=== PATIENT | male | born 1945 | race Caucasian/White ===

== ENCOUNTER 2016-06-02 08:07 | Emergency (ER) ==
[2016-06-02 08:12] VITALS: BP 159/88; TEMP 97.4; BMI 34.7
--- NOTE | 2016-06-02 08:18 | ED.PDOC ---
General ED Provider: Dr. JOSE RAMON RAE JR Chief Complaint: Facial Injury Stated Complaint: Skin cancer taken off last friday in [place] by Dr. Rucker[ End]facial injury last night cancer removed on friday now bleeding Pt. states left side of face where skin cancer was removed a week ago has been bleeding since yesterday.[End]97.4 98 18 94% 159/88 Time Seen by Physician: 08:16 Information Source: Patient, Family Exam Limitations: No limitations Primary Care Provider: MARY HAN Nursing and Triage Documentation Reviewed and Agree: No Trauma/Injury Complaint Exam - Facial Injury Complaint/Exam Location of Pain: Reports: Left, Cheek (6 cm lace4 closed with sutures consistent with history has a site at mid lac with dried blood no acute bleeding nontender slight erythtema slight edema no evidence infection is on keflex) Review of Systems - Review Of Systems Constitutional: Reports: No symptoms Eyes: Reports: No symptoms Ears, Nose, Mouth, Throat: Reports: No symptoms Respiratory: Reports: No symptoms Cardiac: Reports: No symptoms GI: Reports: No symptoms : Reports: No symptoms Musculoskeletal: Reports: No symptoms Skin: Reports: Lesions Neurological: Reports: No symptoms Endocrine: Reports: No symptoms Hematologic/Lymphatic: Reports: No symptoms All Other Systems: Other Past Medical History - Past Medical History Endocrine: Reports: DM 2, Dyslipidemia Cardiovascular: Reports: Hypertension Respiratory: Reports: None Hematological: Reports: None Gastrointestinal: Reports: GERD Genitourinary: Reports: None Neuro/Psych: Reports: None Musculoskeletal: Reports: None Cancer: Reports: Other - Surgical History General Surgical History: Reports: Other (Kidney removed left side about 6 years ago), Unknown - Family History Family History: Reports: Unknown - Social History Smoking Status: Current every day smoker Hx Substance Use: No Alcohol Screening: None - Immunizations Tetanus Shot up to Date: No Physical Exam - Physical Exam Appearance: Well-appearing, Obese Pain Distress: Mild Eyes: JUAN, EOMI, Conjunctiva clear Neck: Supple Skin: Warm, Dry, Normal color (note slight bruising medial to midpoint of lac) Psychiatric: Affect appropriate, Mood appropriate Critical Care Note - Critical Care Note Total Time (mins): 0 Course - Course Vital Signs: Temp Pulse Resp BP Pulse Ox 06/02/16 08:07 97.4 F L 98 H 18 159/88 H 94 L Departure - Departure Time of Disposition: 08:37 Disposition: HOME SELF-CARE Discharge Problem: Postoperative bleeding from incision Instructions: Postoperative Bleeding (ED) Condition: Good Pt referred to PMD for follow-up: Yes Additional Instructions: bandage change daily and if bleeds through return if bleeds through three times in one day ice 20 minutes three times a day call surgeon on Friday relate symptoms return if fever over 101.0, if swelling or redness increase Allergies/Adverse Reactions: Allergies No Known Allergies Allergy (Uncoded 11/14/12 19:45) Home Medications: Ambulatory Orders Diltiazem HCl [Cardizem] 60 mg PO BID 11/14/12 Insulin Glargine,Hum.rec.anlog [Lantus] 65 units SUBCUT QPM 11/14/12 Losartan/Hydrochlorothiazide [Losartan-Hctz 100-25 mg Tab] 1 tab PO DAILY Metformin HCl [Metformin HCl ER] 500 mg PO DAILY 11/14/12 Omeprazole [Prilosec] 20 mg PO QDAC 11/14/12 Simvastatin 20 mg PO DAILY 11/14/12
== END 2016-06-02 08:43 | disposition home or self-care (01) ==
LOC: ED 08:07
DX: L76.21 Postprocedural hemorrhage of skin and subcutaneous tissue following a dermatologic procedure (principal); C44.300 Unspecified malignant neoplasm of skin of unspecified part of face; F17.210 Nicotine dependence, cigarettes, uncomplicated; Z79.899 Other long term (current) drug therapy
CPT/HCPCS: 99282

== ENCOUNTER 2017-10-14 20:10 | Inpatient (IN) ==
[2017-10-14] MEDS ORDERED: DUONEB NEB STA (20:24)
--- NOTE | 2017-10-14 21:42 | ED.PDOC ---
General ED Provider: Dr. KATI VALENCIA Chief Complaint: Cough Stated Complaint: cough productive of brown sputum for few days. Mild shortness of breath. history of smoking 55 year x 1ppd. Time Seen by Physician: 20:15 Mode of Arrival: Walk-In Information Source: Patient Primary Care Provider: MARY HAN Nursing and Triage Documentation Reviewed and Agree: Yes Does patient meet sepsis criteria?: No System Inflammatory Response Syndrome: Not Applicable Sepsis Protocol: For patient's 13 years and over: Temp is 96.8 and below OR 101 and greater Pulse >90 BPM Resp >20/minute Acutely Altered Mental Status Are patient's symptoms suggestive of a new infection, such as: -Pneumonia -Skin, Soft Tissue -Endocarditis -UTI -Bone, Joint Infection -Implantable Device -Acute Abdominal Infection -Wound Infection -Meningitis -Blood Stream Catheter Infection -Unknown Respiratory Complaint Exam - Respiratory Complaint/Exam Onset/Duration: 3 days Symptoms Are: Still present Timing: Constant Initial Severity: Moderate Current Severity: Moderate Location: Chest Character: Reports: Productive cough (white sputum ) Aggravating: Reports: URI, Weather Alleviating: Reports: None Associated Signs and Symptoms: Reports: Dyspnea. Denies: Rapid breathing, Fever , Chills, Chest pain, Pleuritic chest pain, Wheezing, Hemoptysis, Dizziness, Calf pain, Calf swelling, Edema, URI, Nasal congestion, Hoarseness, Sinus discomfort, Vomiting, Sore throat, Weight loss, Decreased oral intake, Increased thirst, Increased appetite, Increased urination History of Healthcare-Acquired Pneumonia: No Related Surgical History: Reports: None Cardiac Risk Factors: Reports: None Pseudomonas Risk Factors: Reports: None Tuberculosis Risk Factors: Reports: None Status Asthmaticus Risk Factors: Reports: None Home Oxygen Use: No Recent Stress Test: No Recent Echo/LV Function: No Current Antibiotic Use: No Current Asthma Medication Use: No Respiratory Distress: None Inadequate Respiratory Effort: No Dysphagia Present: No Stridor Present: No JVD Present: No Accessory Muscle Use: No Diminished Breath Sounds: Yes (bilatearlly ) Sinus Tenderness: None Grunting Respirations: No Kussmaul Respirations: No Differential Diagnoses: Pneumonia, Bronchitis Review of Systems - Review Of Systems Constitutional: Reports: No symptoms, Fever Respiratory: Reports: Cough, Short of air GI: Reports: No symptoms : Reports: No symptoms Musculoskeletal: Reports: Neck pain (with cough on the right ) Skin: Reports: No symptoms Neurological: Reports: No symptoms Endocrine: Reports: No symptoms All Other Systems: Reviewed and Negative Past Medical History - Past Medical History Endocrine: Reports: DM 2, Dyslipidemia Cardiovascular: Reports: Hypertension Respiratory: Reports: None Hematological: Reports: None Gastrointestinal: Reports: GERD Genitourinary: Reports: None Neuro/Psych: Reports: None Musculoskeletal: Reports: None Cancer: Reports: Other - Surgical History General Surgical History: Reports: Other (Kidney removed left side about 6 years ago), Unknown - Family History Family History: Reports: Unknown - Social History Smoking Status: Former smoker Hx Substance Use: No Alcohol Screening: None Physical Exam - Physical Exam Appearance: Ill-appearing, Obese Eyes: JUAN, EOMI, Conjunctiva clear ENT: Ears normal, Nose normal, Oropharynx normal Respiratory: Breath sounds diminished Cardiovascular: RRR, Pulses normal, No rub, No murmur GI/: Soft, Nontender, No masses, Bowel sounds normal, No Organomegaly Musculoskeletal: Normal strength, ROM intact, No edema, No calf tenderness Skin: Warm, Dry, Normal color Neurological: Sensation intact, Motor intact, Reflexes intact, Cranial nerves intact, Alert, Oriented Psychiatric: Affect appropriate, Mood appropriate Interpretation - Radiology Interpretation Radiology Interpretation By: Radiologist Radiology Results: Positive (minimal bibasilar atelectasis and or pneumonia) Exam Interpreted: CXR - Marketing Intelligence Analyst Rate: Normal Rhythm: Sinus Ectopy: None - EKG Interpretation Time of EKG #1: 20:57 Rate: Normal Rhythm: Sinus Ectopy: None [place]: NL Interpretation: RBBB Critical Care Note - Critical Care Note Total Time (mins): 35 Course - Course Hematology/Chemistry: 10/15/17 04:30 10/15/17 04:30 Orders, Labs, Meds: Lab Review 10/14/17 10/14/17 10/14/17 20:30 20:35 20:35 WBC 13.19 H RBC 4.01 L Hgb 12.7 L Hct 38.8 L MCV 96.8 H MCH 31.7 H MCHC 32.7 RDW Coeff of Krissy 11.9 Plt Count 262 Immature Gran % (Auto) 0.5 Neut % (Auto) 69.7 Lymph % (Auto) 15.3 [place] % (Auto) 13.3 H Eos % (Auto) 1.0 Baso % (Auto) 0.2 Immature Gran # (Auto) 0.1 Neut # (Auto) 9.2 H Lymph # (Auto) 2.0 [place] # (Auto) 1.8 Eos # (Auto) 0.1 Baso # (Auto) 0.0 Puncture Site Rr O2 Saturation 91.0 L ABG pH 7.439 ABG pCO2 35.5 ABG pO2 59.0 L* ABG HCO3 24 ABG Total CO2 25 ABG Base Excess 0 Julian Test + FiO2 % 21.0 Sodium 135 L Potassium 4.8 Chloride 102 Carbon Dioxide 24 Anion Gap 13.8 BUN 31 H Creatinine 1.90 H Estimated GFR (MDRD) 35.00 BUN/Creatinine Ratio 16.31 Glucose 181 H Lactic Acid Calcium 9.4 Total Bilirubin 0.5 AST 11 L ALT 9 L Alkaline Phosphatase 58 Total Creatine Kinase 105 Troponin I 0.0130 B-Natriuretic Peptide Total Protein 7.6 Albumin 2.8 L Globulin 4.8 Albumin/Globulin Ratio 0.58 Procalcitonin 10/14/17 10/14/17 10/14/17 20:35 20:35 20:35 WBC RBC Hgb Hct MCV MCH MCHC RDW Coeff of Krissy Plt Count Immature Gran % (Auto) Neut % (Auto) Lymph % (Auto) [place] % (Auto) Eos % (Auto) Baso % (Auto) Immature Gran # (Auto) Neut # (Auto) Lymph # (Auto) [place] # (Auto) Eos # (Auto) Baso # (Auto) Puncture Site O2 Saturation ABG pH ABG pCO2 ABG pO2 ABG HCO3 ABG Total CO2 ABG Base Excess Julian Test FiO2 % Sodium Potassium Chloride Carbon Dioxide Anion Gap BUN Creatinine Estimated GFR (MDRD) BUN/Creatinine Ratio Glucose Lactic Acid 9.1 Calcium Total Bilirubin AST ALT Alkaline Phosphatase Total Creatine Kinase Troponin I B-Natriuretic Peptide 49 Total Protein Albumin Globulin Albumin/Globulin Ratio Procalcitonin 0.07 Orders Category Date Time Status ABG DRAW REQUEST Routine CARDIO 10/14/17 20:30 Completed EKG-(ED ONLY) Stat CARDIO 10/14/17 20:24 Completed NEBULIZER TREATMENT Stat CARDIO 10/14/17 20:25 Completed ED POURER BUGGY LADLE APPLIED .ONCE EMERGENCY 10/14/17 20:24 Active ED IV/MEDIPORT/POWERPORT .ONCE EMERGENCY 10/14/17 20:24 Active ABG Stat LAB 10/14/17 20:30 Completed B-TYPE NATRIURETIC PEPTIDE Stat LAB 10/14/17 20:35 Completed BLOOD CULTURE (ED ONLY) Stat LAB 10/14/17 20:35 Received CBC W/ AUTO DIFF Stat LAB 10/14/17 20:35 Completed COMPREHENSIVE METABOLIC PANEL Stat LAB 10/14/17 20:35 Completed CREATINE KINASE Stat LAB 10/14/17 20:35 Completed LACTIC ACID Stat LAB 10/14/17 20:35 Completed PROCALCITONIN Stat LAB 10/14/17 20:35 Completed TROPONIN I Stat LAB 10/14/17 20:35 Completed 0.9 % Sodium Chloride [Saline Flush] MEDS 10/14/17 20:24 Ordered 1 syr IVF PRN PRN Azithromycin [Zithromax] MEDS 10/14/17 21:56 Discontinued 500 mg PO ONCE STA Ceftriaxone Sodium [Rocephin] MEDS 10/14/17 22:00 Discontinued 1 gm .ROUTE .STK-MED ONE Ceftriaxone Sodium [Rocephin] 1 gm MEDS 10/14/17 21:56 Discontinued 0.9 % Sodium Chloride [Sodium Chloride] 50 ml IV ONCE Ipratropium/Albuterol Neb [Duoneb] MEDS 10/14/17 20:24 Discontinued 1 vial NEB ONCE STA CHEST, 2 VIEWS PA & LAT Stat RADS 10/14/17 20:25 Completed Medications Generic Name Dose Route Start Last Admin Trade Name Freq PRN Reason Stop Dose Admin Acetaminophen 650 mg 10/14/17 23:05 Tylenol PO Q4H PRN Fever > 102 Albuterol/Ipratropium 1 vial 10/15/17 06:00 10/15/17 04:50 Duoneb NEB 1 vial RTQID [facility] Administration Aspirin 81 mg 10/15/17 09:00 Aspirin Ec PO DAILY [facility] Azithromycin 250 mg 10/15/17 23:08 Zithromax PO 10/18/17 09:01 DAILY [facility] Carvedilol 6.25 mg 10/15/17 09:00 Coreg PO BID [facility] Enoxaparin Sodium 40 mg 10/15/17 09:00 Lovenox SUBCUT DAILY [facility] Ceftriaxone Sodium 1 gm/ 50 mls @ 75 mls/hr 10/15/17 09:00 Sodium Chloride IV DAILY [facility] Potassium Chloride/Sodium Chloride 1,000 mls @ 90 mls/hr 10/14/17 23:30 10/15 00:22 Sodium Chloride 0.9%-Kcl 20 Meq IV 90 mls/hr .Q11H7M ESTEBAN Administration Insulin Glargine 90 unit 10/15/17 17:00 Lantus SUBCUT QPM ESTEBAN Insulin Human Regular 0 - 15 unit 10/14/17 23:13 Humulin R SUBCUT PRN PRN Hyperglycemica Protocol Linagliptin 5 mg 10/15/17 09:00 Tradjenta PO DAILY ESTEBAN Methylprednisolone Sodium Succinate 40 mg 10/15/17 05:00 10/15/17 04:32 Solu-Medrol 40 Mg IVP 40 mg Q8HR ESTEBAN Administration Non-Formulary Medication 90 mg 10/15/17 09:00 Diltiazem Hcl [Diltiazem Hcl] PO BID ESTEBAN Non-Formulary Medication 50 mg 10/15/17 09:00 Losartan Potassium [Losartan Potassium] PO DAILY ESTEBAN Non-Formulary Medication 1 each 10/15/17 09:00 [place]-3 Fatty Acids/Fish Oil [Fish Oil 1,000 Mg Capsule] PO DAILY ESTEBAN Non-Formulary Medication 20 mg 10/15/17 09:00 Simvastatin [Simvastatin] PO DAILY ESTEBAN Omeprazole 20 mg 10/15/17 06:30 10/15/17 06:27 Prilosec PO 20 mg QDAC ESTEBAN Administration Ondansetron HCl 4 mg 10/14/17 23:05 Zofran 4 Mg/2 Ml IVP Q6H PRN Nausea / Vomiting Sitagliptin Phosphate 50 mg 10/15/17 09:00 Januvia PO DAILY [facility] Sodium Chloride 1 syr 10/14/17 20:24 Saline Flush IVF PRN PRN To flush IV Discontinued Medications Generic Name Dose Route Start Last Admin Trade Name Leonardoq PRN Reason Stop Dose Admin Albuterol/Ipratropium 1 vial 10/14/17 20:24 10/14/17 20:48 Duoneb NEB 10/14/17 20:25 1 vial ONCE STA Administration Azithromycin 500 mg 10/14/17 21:56 10/14/17 22:06 Zithromax PO 10/14/17 21:57 500 mg ONCE STA Administration Ceftriaxone Sodium 1 gm/ 50 mls @ 75 mls/hr 10/14/17 21:56 10/14/17 22:07 Sodium Chloride IV 10/14/17 22:35 75 mls/hr ONCE STA Administration Insulin Glargine unit 10/15/17 17:00 Lantus SUBCUT QPM ESTEBAN Methylprednisolone Sodium Succinate 125 mg 10/14/17 23:04 10/14/17 23:18 Solu-Medrol 125 Mg IVP 10/14/17 23:05 125 mg ONCE STA Administration Vital Signs: Temp Pulse Resp BP Pulse Ox 10/14/17 22:19 98.8 F 79 20 138/76 94 L 10/14/17 21:22 145/87 H 10/14/17 21:19 150/74 H 10/14/17 20:11 98.5 F 85 20 166/76 H 91 L Departure - Departure Time of Disposition: 23:15 Disposition: ADMITTED INPATIENT Discharge Problem: Bronchitis Pneumonia Qualifiers: Pneumonia type: due to unspecified organism Laterality: unspecified laterality Lung location: lower lobe of lung Qualified Code(s): J18.1 - Lobar pneumonia, unspecified organism Condition: Stable Pt referred to PMD for follow-up: Yes IPMP verified?: No Allergies/Adverse Reactions: Allergies No Known Allergies Allergy (Verified 10/14/17 20:15) Home Medications: Ambulatory Orders Insulin Glargine,Hum.rec.anlog [Lantus] 90 units SUBCUT QPM 11/14/12 Omeprazole [Prilosec] 20 mg PO QDAC 11/14/12 Simvastatin 20 mg PO DAILY 11/14/12 Aspirin [Aspir 81] 81 mg PO DAILY tab-cap 10/16/16 Carvedilol [Coreg] 6.25 mg PO BID tab-cap 10/16/16 Diltiazem HCl 90 mg PO BID tab-cap 10/16/16 Losartan Potassium 50 mg PO DAILY tab-cap 10/16/16 Sitagliptin Phosphate [Januvia] 50 mg PO DAILY 10/16/16 Linagliptin [Tradjenta] 5 mg PO DAILY 10/14/17 [place]-3 Fatty Acids/Fish Oil [Fish Oil 1,000 mg Capsule] 1 each PO DAILY Disposition Discussed With: Patient, Family
--- NOTE | 2017-10-14 21:54 | DI ---
EXAM: Chest PA and lateral HISTORY: Cough and shortness of air FINDINGS: Minimal bibasilar opacities have developed since 12/18/2014. The aorta is atherosclerotic . The lungs are hyperinflated. The heart size is normal. The bones are intact. No pneumothorax or pl eural effusions are detected. IMPRESSION: Minimal bibasilar atelectasis and/or pneumonia. Emphysema is suggested. ASCVD
[2017-10-14] MEDS ORDERED: ZITHROMAX PO STA (21:56)
[2017-10-14] MEDS ORDERED: ROCEPHIN 1 GM in SODIUM CHLORIDE 50 ML IV STA (21:56)
[2017-10-14] MEDS ORDERED: ROCEPHIN ONE (22:00)
[2017-10-14] MEDS ORDERED: SOLU-MEDROL 125 MG IVP STA (23:04)
[2017-10-14] MEDS ORDERED: TYLENOL PO PRN (23:05)
[2017-10-14] MEDS ORDERED: ZOFRAN 4 MG/2 ML IVP PRN (23:05)
[2017-10-14] MEDS ORDERED: SODIUM CHLORIDE 0.9%-KCL 20 MEQ 1,000 ML IV SCH (23:30)
[2017-10-15 00:07] VITALS: BMI 37.5
[2017-10-15] MEDS: SOLU-MEDROL 40 MG IVP SCH ×3 (04:32→20:51)
[2017-10-15] MEDS: DUONEB NEB SCH ×4 (04:50→21:30)
[2017-10-15] MEDS: PRILOSEC PO SCH (06:27)
[2017-10-15] MEDS ORDERED: NON-FORMULARY MEDICATION (Losartan Potassium [Losartan Potassium] 50 MG) PO SCH (09:00)
[2017-10-15] MEDS ORDERED: NON-FORMULARY MEDICATION (Simvastatin [Simvastatin] 20 MG) PO SCH (09:00)
[2017-10-15] MEDS ORDERED: NON-FORMULARY MEDICATION (Omega-3 Fatty Acids/Fish Oil [Fish Oil 1,000 Mg Capsule] 1 EACH) PO SCH (09:00)
[2017-10-15] MEDS ORDERED: NON-FORMULARY MEDICATION (Diltiazem Hcl [Diltiazem Hcl] 90 MG) PO SCH (09:00)
--- NOTE | 2017-10-15 09:10 | PCM.PROG ---
Attending Provider: ATTENDING PROVIDER: Dr. MARY HAN DATE OF SERVICE: 10/15/17 SUBJECTIVE: This 72 year old WHITE/ M was hospitalized 10/14/17 with pneumonia and COPD. Condition has improved and is feeling better The patient's is in the room. (The patient was not seen on 10/14/17) REVIEW OF SYSTEMS: CONSTITUTIONAL: No night sweats. No fatigue, malaise, lethargy. No fever or chills. HEENT: Eyes: No visual changes. No eye pain. No eye discharge. ENT: No runny nose. No epistaxis. No sinus pain. No odynophagia. No congestion. RESPIRATORY: No cough, no congestion. No hemoptysis. No shortness of breath. CARDIOVASCULAR: No angina symptoms. No CHF symptoms. No atypical chest pain for CAD. No palpitations. No PND. No orthopnea. GASTROINTESTINAL: No abdominal pain. No nausea or vomiting. No diarrhea or constipation. No hematemesis. No hematochezia. GENITOURINARY: No urgency. No frequency. No dysuria. No hematuria. No obstructive symptoms. No discharge. No pain. No significant abnormal bleeding. MUSCULOSKELETAL: No musculoskeletal pain; no joint swelling. NEUROLOGICAL: Awake, alert, oriented to time, place and person. No headache. No neck pain. No syncope. No seizures. No dizziness. PSYCHIATRIC: Not anxious. No depression. No suicidal thoughts. No homicidal thoughts. SKIN: No rash. No lesions. No wounds. ENDOCRINE: No unexplained weight loss. No weight gain. HEMATOLOGIC/LYMPHATIC: No anemia. No purpura. No petechiae. No prolonged or excessive bleeding. No palpable lymph nodes. PHYSICAL EXAMINATION: GENERAL: The patient is awake, alert and oriented, lying in bed in no distress. VITAL SIGNS: Temperature 98.1 F, Pulse 82, Respiratory Rate 18, BP 144/87, Pulse Ox 92% HEENT: Head normocephalic, atraumatic. Eyes: Extraocular muscles are intact. Pupils are equal, round and reactive to light and accommodation. Ears: No lesions. Nose appeared normal. Throat: No exudate or erythema. NECK: Supple. No JVD, no carotid bruit. No lymphadenopathy or thyromegaly. LUNGS: Clear to auscultation. Percussion note normal. Chest symmetrical. HEART: S1, S2, no S3. No murmurs. No cyanosis or clubbing. No ascites. Pulses: Dorsalis pedis and posterior tibial pulses +1 to +2 both sides. ABDOMEN: Soft. Non-tender. Bowel sounds active. No CVA tenderness. No mass felt. EXTREMITIES: No edema. Full range of motion of all extremities, equal. NEUROLOGIC: No focal deficit. Cranial nerves II through XII are grossly intact. No headache, no double vision or headache. SKIN: Warm and dry. Intact. Turgor-better. LYMPHATIC: No palpable lymph nodes/no lymphedema. MUSCULOSKELETAL: Normal joints with no swelling. Muscle tone is normal. LAB REVIEW: 10/15/17 04:30 10/15/17 04:30 10/15/17 04:30: Sodium 137, Potassium 4.7, Chloride 105, Carbon Dioxide 24, Anion Gap 12.7, BUN 27 H, Creatinine 1.49 H, Estimated GFR (MDRD) 47.00, BUN/ Creatinine Ratio 18.12, Glucose 115 D, Calcium 9.2 10/15/17 04:30: WBC 13.44 H, RBC 4.15 L, Hgb 12.9 L, Hct 40.0 L, MCV 96.4 H, MCH 31.1 H, MCHC 32.3, RDW Coeff of Krissy 11.8, Plt Count 256, Immature Gran % ( Auto) 0.4, Neut % (Auto) 91.5, Lymph % (Auto) 6.8 L, [place] % (Auto) 1.2, Eos % ( Auto) 0.0, Baso % (Auto) 0.1, Immature Gran # (Auto) 0.1, Neut # (Auto) 12.3 H, Lymph # (Auto) 0.9, [place] # (Auto) 0.2 L, Eos # (Auto) 0.0, Baso # (Auto) 0.0 10/14/17 20:35: Lactic Acid 9.1 10/14/17 20:35: Procalcitonin 0.07 10/14/17 20:35: B-Natriuretic Peptide 49 10/14/17 20:35: Sodium 135 L, Potassium 4.8, Chloride 102, Carbon Dioxide 24, Anion Gap 13.8, BUN 31 H, Creatinine 1.90 H, Estimated GFR (MDRD) 35.00, BUN/ Creatinine Ratio 16.31, Glucose 181 H, Calcium 9.4, Total Bilirubin 0.5, AST 11 L, ALT 9 L, Alkaline Phosphatase 58, Total Creatine Kinase 105, Troponin I 0.0130, Total Protein 7.6, Albumin 2.8 L, Globulin 4.8, Albumin/Globulin Ratio 0.58 10/14/17 20:35: WBC 13.19 H, RBC 4.01 L, Hgb 12.7 L, Hct 38.8 L, MCV 96.8 H, MCH 31.7 H, MCHC 32.7, RDW Coeff of Krissy 11.9, Plt Count 262, Immature Gran % ( Auto) 0.5, Neut % (Auto) 69.7, Lymph % (Auto) 15.3, [place] % (Auto) 13.3 H, Eos % (Auto) 1.0, Baso % (Auto) 0.2, Immature Gran # (Auto) 0.1, Neut # (Auto) 9.2 H, Lymph # (Auto) 2.0, [place] # (Auto) 1.8, Eos # (Auto) 0.1, Baso # (Auto) 0.0 10/14/17 20:30: Puncture Site Rr, O2 Saturation 91.0 L, ABG pH 7.439, ABG pCO2 35.5, ABG pO2 59.0 L*, ABG HCO3 24, ABG Total CO2 25, ABG Base Excess 0, Julian Test +, FiO2 % 21.0 ASSESSMENT: 1. PNEUMONIA, CLINICALLY BETTER 2. COPD 3. SMOKER 4. DIABETES MELLITUS 5. OBESITY 6. HYPERTENSION PLAN: 1. Continue IV antibiotics with nebs and steroids. 2. D/C IV fluids. 3. Have patient up and about. 4. Sliding scale coverage for hyperglycemia. 5, Counseling for smoking done. Plan and coordination of the patient's care discussed in the presence of [place] Mixer Operator and nurse. EDUCATION: Discussed smoking cessation with the patient, counseling for smoking done. CONDITION: Stable SCRIBED BY: BRIGETTE WATSON Auto Mechanic Supervisor scribed while in presence of service performed by Dr. MARY HAN on 10/15/17 ([id number])
[2017-10-15] MEDS: ASPIRIN EC PO SCH (09:16)
[2017-10-15] MEDS: COZAAR PO SCH (09:17)
[2017-10-15] MEDS: OMEGA-3 FISH OIL PO SCH (09:18)
[2017-10-15] MEDS: JANUVIA PO SCH (09:18)
[2017-10-15] MEDS: TRADJENTA PO SCH (09:18)
[2017-10-15] MEDS: ZOCOR PO SCH (09:18)
[2017-10-15] MEDS: CARDIZEM PO SCH ×4 (09:19→20:51)
[2017-10-15] MEDS: LOVENOX SUBCUT SCH (09:19)
[2017-10-15] MEDS: COREG PO SCH ×2 (09:19→17:59)
[2017-10-15] MEDS: HUMULIN R SUBCUT PRN ×3 (11:37→20:52)
[2017-10-15] MEDS ORDERED: LANTUS SUBCUT SCH (17:00)
[2017-10-15] MEDS: LANTUS SUBCUT SCH (18:01)
[2017-10-15] MEDS: ROCEPHIN 1 GM in SODIUM CHLORIDE 50 ML IV SCH (20:51)
[2017-10-15] MEDS ORDERED: ZITHROMAX PO SCH ×2 (21:00→23:08)
[2017-10-16] MEDS: DUONEB NEB SCH ×4 (04:48→22:05)
[2017-10-16] MEDS: PRILOSEC PO SCH (05:45)
[2017-10-16] MEDS: SOLU-MEDROL 40 MG IVP SCH (05:45)
[2017-10-16] MEDS: HUMULIN R SUBCUT PRN ×4 (05:45→20:25)
[2017-10-16] MEDS: TRADJENTA PO SCH (08:47)
[2017-10-16] MEDS: OMEGA-3 FISH OIL PO SCH (08:47)
[2017-10-16] MEDS: COREG PO SCH ×2 (08:48→18:16)
[2017-10-16] MEDS: ZOCOR PO SCH (08:48)
[2017-10-16] MEDS: JANUVIA PO SCH (08:48)
[2017-10-16] MEDS: COZAAR PO SCH (08:48)
[2017-10-16] MEDS: CARDIZEM PO SCH ×4 (08:49→20:25)
[2017-10-16] MEDS: ASPIRIN EC PO SCH (08:49)
[2017-10-16] MEDS: LOVENOX SUBCUT SCH (08:49)
--- NOTE | 2017-10-16 09:02 | PCM.PROG ---
Attending Provider: ATTENDING PROVIDER: Dr. MARY HAN This patient is seen with Denise Schneider, Nurse Practitioner. DATE OF SERVICE: 10/16/17 SUBJECTIVE: This 72 year old WHITE/ M was hospitalized 10/14/17. The patient is sitting up in bed, alert. He is sleeping well. He is eating good. Kidney function slightly more elevated. He is still wearing 02. He doesn't use oxygen at home. REVIEW OF SYSTEMS: CONSTITUTIONAL: No night sweats. No fatigue, malaise, lethargy. No fever or chills. HEENT: Eyes: No visual changes. No eye pain. No eye discharge. ENT: No runny nose. No epistaxis. No sinus pain. No odynophagia. No congestion. RESPIRATORY: Cough and congestion. No hemoptysis. Shortness of breath. CARDIOVASCULAR: No angina symptoms. No CHF symptoms. No atypical chest pain for CAD. No palpitations. No orthopnea.. GASTROINTESTINAL: No abdominal pain. No nausea or vomiting. No diarrhea or constipation. No hematemesis. No hematochezia. GENITOURINARY: No urgency. No frequency. No dysuria. No hematuria. No obstructive symptoms. No discharge. No pain. No significant abnormal bleeding. MUSCULOSKELETAL: No musculoskeletal pain; no joint swelling. NEUROLOGICAL: Awake, alert, oriented to time, place and person. No headache. No neck pain. No syncope. No seizures. No dizziness. PSYCHIATRIC: Not anxious. No depression. No suicidal thoughts. No homicidal thoughts. SKIN: No rash. No lesions. No wounds. ENDOCRINE: No unexplained weight loss. No weight gain. HEMATOLOGIC/LYMPHATIC: No anemia. No purpura. No petechiae. No prolonged or excessive bleeding. No palpable lymph nodes. PHYSICAL EXAMINATION: GENERAL: The patient is awake, alert and oriented, sitting in bed in no distress. VITAL SIGNS: Temperature 97.5 F, Pulse 92, Respiratory Rate 24, BP 133/75, Pulse Ox 96% HEENT: Head normocephalic, atraumatic. Eyes: Extraocular muscles are intact. Pupils are equal, round and reactive to light and accommodation. Ears: No lesions. Nose appeared normal. Throat: No exudate or erythema. NECK: Supple. No JVD, no carotid bruit. No lymphadenopathy or thyromegaly. LUNGS: Diminished breath sounds. Bilateral rhonchi. Percussion note normal. Chest symmetrical. HEART: S1, S2, no S3. No murmurs. No cyanosis or clubbing. No ascites. Pulses: Dorsalis pedis and posterior tibial pulses +1 to +2 both sides. ABDOMEN: Soft. Non-tender. Bowel sounds active. No CVA tenderness. No mass felt. EXTREMITIES: No edema. Full range of motion of all extremities, equal. NEUROLOGIC: No focal deficit. Cranial nerves II through XII are grossly intact. No headache, no double vision or headache. SKIN: Not dry. Intact. Turgor-normal. LYMPHATIC: No palpable lymph nodes/no lymphedema. MUSCULOSKELETAL: Normal joints with no swelling. Muscle tone is normal. LAB REVIEW: 10/16/17 05:15 10/16/17 05:15 10/16/17 05:15: Sodium 138, Potassium 4.7, Chloride 106, Carbon Dioxide 24, Anion Gap 12.7, BUN 33 H, Creatinine 1.50 H, Estimated GFR (MDRD) 46.00, BUN/ Creatinine Ratio 22.00, Glucose 264 H, Calcium 9.2 10/16/17 05:15: WBC 22.55 H D, RBC 4.08 L, Hgb 12.9 L, Hct 38.4 L, MCV 94.1 H, MCH 31.6 H, MCHC 33.6, RDW Coeff of Krissy 11.7, Plt Count 275, Immature Gran % ( Auto) 0.6, Neut % (Auto) 91.4, Lymph % (Auto) 4.4 L, [place] % (Auto) 3.5, Eos % ( Auto) 0.0, Baso % (Auto) 0.1, Immature Gran # (Auto) 0.1, Neut # (Auto) 20.6 H, Lymph # (Auto) 1.0, [place] # (Auto) 0.8, Eos # (Auto) 0.0, Baso # (Auto) 0.0 ASSESSMENT: 1. PNEUMONIA, CLINICALLY BETTER 2. COPD 3. SMOKER 4. DIABETES MELLITUS 5. OBESITY 6. HYPERTENSION 7. CHRONIC KIDNEY DISEASE PLAN: 1. Increase Solu-Medrol to 80 q.8hr Plan and coordination of the patient's care discussed in the presence of Sports Teacher and nurse. CONDITION: Stable SCRIBED BY: BRIGETTE WATSON Rehab Consultant scribed while in presence of service performed by Dr. Han/Denise Schneider APRN on 10/16/17 (2017)
[2017-10-16] MEDS: SOLU-MEDROL 125 MG IVP SCH ×2 (12:56→20:23)
[2017-10-16] MEDS ORDERED: SOLU-MEDROL 40 MG IVP SCH (13:00)
[2017-10-16] MEDS: LANTUS SUBCUT SCH (18:17)
[2017-10-16] MEDS: ROCEPHIN 1 GM in SODIUM CHLORIDE 50 ML IV SCH (20:23)
[2017-10-16] MEDS ORDERED: ZITHROMAX PO SCH (21:00)
[2017-10-17] MEDS: DUONEB NEB SCH (05:06)
[2017-10-17] MEDS: PRILOSEC PO SCH (05:45)
[2017-10-17] MEDS: SOLU-MEDROL 125 MG IVP SCH (05:45)
[2017-10-17] MEDS: HUMULIN R SUBCUT PRN ×2 (05:45→12:45)
[2017-10-17] MEDS ORDERED: PROAIR HFA IH SCH (09:00)
[2017-10-17] MEDS: CARDIZEM PO SCH ×2 (09:16→09:17)
[2017-10-17] MEDS: COZAAR PO SCH (09:16)
[2017-10-17] MEDS: TRADJENTA PO SCH (09:16)
[2017-10-17] MEDS: JANUVIA PO SCH (09:16)
[2017-10-17] MEDS: ZOCOR PO SCH (09:16)
[2017-10-17] MEDS: OMEGA-3 FISH OIL PO SCH (09:16)
[2017-10-17] MEDS: COREG PO SCH (09:17)
[2017-10-17] MEDS: ASPIRIN EC PO SCH (09:17)
[2017-10-17] MEDS: LOVENOX SUBCUT SCH (09:19)
--- NOTE | 2017-10-17 11:08 | PCM.PROG ---
Attending Provider: ATTENDING PROVIDER: Dr. MARY HAN This patient is seen with Denise Schneider, Nurse Practitioner. DATE OF SERVICE: 10/17/17 SUBJECTIVE: This 72 year old WHITE/ M was hospitalized 10/14/17. The patient is sitting in bed, ready to go home. He has been up and about eating well. REVIEW OF SYSTEMS: CONSTITUTIONAL: No night sweats. No fatigue, malaise, lethargy. No fever or chills. HEENT: Eyes: No visual changes. No eye pain. No eye discharge. ENT: No runny nose. No epistaxis. No sinus pain. No odynophagia. No congestion. RESPIRATORY: Cough. No hemoptysis. No shortness of breath. CARDIOVASCULAR: No angina symptoms. No CHF symptoms. No atypical chest pain for CAD. No palpitations. No orthopnea.. GASTROINTESTINAL: No abdominal pain. No nausea or vomiting. No diarrhea or constipation. No hematemesis. No hematochezia. GENITOURINARY: No urgency. No frequency. No dysuria. No hematuria. No obstructive symptoms. No discharge. No pain. No significant abnormal bleeding. MUSCULOSKELETAL: No musculoskeletal pain; no joint swelling. NEUROLOGICAL: Awake, alert, oriented to time, place and person. No headache. No neck pain. No syncope. No seizures. No dizziness. PSYCHIATRIC: Not anxious. No depression. No suicidal thoughts. No homicidal thoughts. SKIN: No rash. No lesions. No wounds. ENDOCRINE: No unexplained weight loss. No weight gain. HEMATOLOGIC/LYMPHATIC: No anemia. No purpura. No petechiae. No prolonged or excessive bleeding. No palpable lymph nodes. PHYSICAL EXAMINATION: GENERAL: The patient is awake, alert and oriented, sitting in bed in no distress. VITAL SIGNS: Temperature 98.0 F, Pulse 62, Respiratory Rate 15, BP 143/81, Pulse Ox 95% HEENT: Head normocephalic, atraumatic. Eyes: Extraocular muscles are intact. Pupils are equal, round and reactive to light and accommodation. Ears: No lesions. Nose appeared normal. Throat: No exudate or erythema. NECK: Supple. No JVD, no carotid bruit. No lymphadenopathy or thyromegaly. LUNGS: Diminished breath sounds. Clear to auscultation. Percussion note normal. Chest symmetrical. HEART: S1, S2, no S3. No murmurs. No cyanosis or clubbing. No ascites. Pulses: Dorsalis pedis and posterior tibial pulses +1 to +2 both sides. ABDOMEN: Soft. Non-tender. Bowel sounds active. No CVA tenderness. No mass felt. EXTREMITIES: No edema. Full range of motion of all extremities, equal. NEUROLOGIC: No focal deficit. Cranial nerves II through XII are grossly intact. No headache, no double vision or headache. SKIN: Not dry. Intact. Turgor-normal. LYMPHATIC: No palpable lymph nodes/no lymphedema. MUSCULOSKELETAL: Normal joints with no swelling. Muscle tone is normal. LAB REVIEW: 10/17/17 04:15 10/17/17 04:15 10/17/17 04:15: Sodium 137, Potassium 5.0, Chloride 106, Carbon Dioxide 23, Anion Gap 13.0, BUN 43 H, Creatinine 1.61 H, Estimated GFR (MDRD) 43.00, BUN/ Creatinine Ratio 26.70, Glucose 263 H, Calcium 9.1 10/17/17 04:15: WBC 23.56 H, RBC 4.05 L, Hgb 12.7 L, Hct 38.2 L, MCV 94.3 H, MCH 31.4 H, MCHC 33.2, RDW Coeff of Krissy 11.7, Plt Count 270, Immature Gran % ( Auto) 1.0, Neut % (Auto) 92.3, Lymph % (Auto) 4.4 L, [place] % (Auto) 2.2, Eos % ( Auto) 0.0, Baso % (Auto) 0.1, Immature Gran # (Auto) 0.2, Neut # (Auto) 21.8 H, Lymph # (Auto) 1.0, [place] # (Auto) 0.5, Eos # (Auto) 0.0, Baso # (Auto) 0.0 ASSESSMENT: 1. PNEUMONIA, CLINICALLY BETTER 2. COPD 3. SMOKER 4. DIABETES MELLITUS 5. OBESITY 6. HYPERTENSION 7. CHRONIC KIDNEY DISEASE PLAN: 1. Discharge home. 2. Prednisone 10 mg b.i.d. times five days 3. Omnicef 300 mg b.i.d. times 7 days 4. ProAir t.i.d. ESTEBAN 5. Stress echocardiogram week after next 6. Carotid scan prior to discharge Plan and coordination of the patient's care discussed in the presence of Felled Seam Operator and nurse. CONDITION: Stable SCRIBED BY: BRIGETTE WATSON Foster Care Therapist scribed while in presence of service performed by Dr. Han/Denise Schneider APRN on 10/17/17 ([id number])
[2017-10-17 11:18] VITALS: BP 99/58; TEMP 97.4
--- NOTE | 2017-10-17 11:26 | HP ---
DATE OF SERVICE: 10/15/17 REASON FOR HOSPITALIZATION/HISTORY OF PRESENT ILLNESS: 72 year old white male with a history of COPD who presented to the emergency room with productive cough with brown sputum for a few days with mild shortness of breath. PAST MEDICAL HISTORY: Diabetes Mellitus type 2, past A1c was 8.1 Hypertension LVH Dyslipidemia COPD Heavy smoker Metabolic syndrome Chronic kidney disease Lung nodule Neuropathy PAST SURGICAL HISTORY: Left nephrectomy Left shoulder surgery in 2016 REVIEW OF SYSTEMS: CONSTITUTIONAL: No night sweats. No fatigue, malaise, lethargy. No fever or chills. HEENT: Eyes: No visual changes. No eye pain. No eye discharge. ENT: No runny nose. No epistaxis. No sinus pain. No sore throat. No odynophagia. No ear pain. No congestion. RESPIRATORY: Cough, Congestion, brownish sputum. No hemoptysis. Shortness of breath. CARDIOVASCULAR: No angina symptoms. No CHF symptoms. No atypical chest pain for CAD. No palpitations. No PND. No orthopnea. GASTROINTESTINAL: No abdominal pain. No nausea or vomiting. No diarrhea or constipation. No hematemesis. No hematochezia. GENITOURINARY: No urgency. No frequency. No dysuria. No hematuria. No obstructive symptoms. No discharge. No pain. No significant abnormal bleeding. MUSCULOSKELETAL: No musculoskeletal pain. No joint swelling. No arthritis. NEUROLOGICAL: No headache. No neck pain. No syncope. No seizures. No dizziness. PSYCHIATRIC: Not anxious. No depression. No suicidal thoughts. No homicidal thoughts. SKIN: No rash. No lesions. No wounds. ENDOCRINE: No unexplained weight loss. No weight gain. HEMATOLOGIC/LYMPHATIC: No anemia. No purpura. No petechiae. No prolonged or excessive bleeding. No palpable lymph nodes. PERSONAL/FAMILY/SOCIAL HISTORY: The patient is a smoker. He currently lives with his . No alcohol or illicit drug use. Heavy smoker for the past 50 years at least a pack per day. MEDICATIONS: Simvastatin 20mg PO daily Prilosec 20mg PO QDAC Lantus 90 units SUBCUT Januvia 50mg PO daily Losartan 50mg PO daily Aspirin 81mg PO daily Coreg 6.25mg PO twice a day Diltiazem 90mg PO twice a day [place] 3 Fatty acids one PO daily Tradjenta 5mg PO daily ALLERGIES: No known allergies. PHYSICAL EXAMINATION: HEENT: Head normocephalic, atraumatic. Eyes: Extraocular muscles are intact. Pupils are equal, round and reactive to light and accommodation. Ears: No lesions. Nose appeared normal. Throat: No exudate or erythema. NECK: Supple. No JVD, no carotid bruit. No lymphadenopathy or thyromegaly. LUNGS: Diminished breath sounds with expiratory wheeze bilaterally. Clear to auscultation. Percussion note normal. Chest symmetrical. HEART: S1, S2, no S3. No murmurs. No cyanosis or clubbing. No ascites. Pulses: Dorsalis pedis and posterior tibial pulses +1 to +2 bilaterally. ABDOMEN: Soft. Nontender. Bowel sounds active. No CVA tenderness. No mass felt. EXTREMITIES: No edema. Full range of motion of all extremities, equal. NEUROLOGIC: No focal deficit. Cranial nerves II through XII are grossly intact. No headache, no double vision or headache. SKIN: Not dry. Intact. Turgor - normal. LYMPHATIC: No palpable lymph nodes/no lymphedema. MUSCULOSKELETAL: Normal joints with no swelling. Muscle tone is normal. LABS: WBC 13.44, hgb 12.9, hct 40.0, plt count 256, sodium 137, potassium 4.7, BUN 27 , creatinine 1.49, glucose 115, blood gasses on room air O2 sat 91, pH 7.439, pCO2 35.5, pO2 59, bicarb 24, total CO2 25, base excess of 0. AST 11, ALT 9. Alkaline phosphatase 58, total protein 7.6. Chest x-ray shows bibasilar atelectasis and or pneumonia. EKG shows normal sinus rhythm. ASSESSMENT: 1. Bilateral pneumonia 2. Acute COPD exacerbation 3. Shortness of breath 4. Severe COPD 5. Diabetes Mellitus type 2 6. Hypertension 7. LVH 8. Dyslipidemia 9. Metabolic syndrome 10.Chronic kidney disease,stage 2 11.History of lung nodule 12.Neuropathy symptoms PLAN: 1. Will admit 2. Routine telemetry orders 3. CBC and CMP daily 4. Continue all home medications 5. Will started IV fluids at 50cc normal saline IV 6. Place him on Rocephin 1 gram IV daily 7. Started DUO NEB treatments Q 6 hours scheduled 8. Zithromax 500mg PO daily times three days 9. Sliding scale for insulin 10.Solu-Medrol 40mg IV Q 8 hours 11.Diabetic diet 12.Oxygen at 1-2 liters PRN Will follow closely. TIME SPENT: More than 70 minutes. MTDD
--- NOTE | 2017-10-17 12:05 | CM.DICTOOL ---
ADMISSION: 10/14/17 23:04 DISCHARGE: 10/17/17 DATE OF SERVICE: 10/17/17 FINAL DIAGNOSIS PNEUMONIA EMPHYSEMA COPD DYSLIPIDEMIA HTN DM, TYPE 2 GERD OSTEOARTHRITIS, RIGHT KNEE DEGENERATIVE OA, LEFT SHOULDER ROTATOR CUFF TEAR AND REPAIR LEFT NEPHRECTOMY, 2012 SKIN CA, LEFT CHEEK, EXCISED, 05/28/17 (DR. VEGA) FORMER TOBACCO USE, 1.5 PPD X 55 YEARS NONE FOR 3 WEEKS LAST VITALS Temp Pulse Resp BP Pulse Ox 98.0 F 62 15 143/81 H 91 L 10/17/17 04:57 10/17/17 04:57 10/17/17 04:57 10/17/17 04:57 10/17/17 10:00 TAKE THESE MEDICATIONS AT HOME Albuterol Sulfate (Proair Hfa) 2 puff IH TID [facility] Last Admin: 10/17/17 09:22 Dose: 2 puff Aspirin (Aspirin Ec) 81 mg PO DAILYWM [facility] Last Admin: 10/17/17 09:17 Dose: 81 mg Carvedilol (Coreg) 6.25 mg PO BIDWM [facility] Last Admin: 10/17/17 09:17 Dose: 6.25 mg Cefdinir (Omnicef) 300 mg PO BID x7 DAYS Diltiazem HCl (Cardizem) 90 mg PO BID [facility] Last Admin: 10/17/17 09:16 Dose: 90 mg Fish Oil (Donahue-3 Fish Oil) 1,000 mg PO DAILY [facility] Last Admin: 10/17/17 09:16 Dose: 1,000 mg Insulin Glargine (Lantus) 90 unit SUBCUT QPM [facility] Last Admin: 10/16/17 18:17 Dose: 90 unit Linagliptin (Tradjenta) 5 mg PO DAILY [facility] Last Admin: 10/17/17 09:16 Dose: 5 mg Losartan Potassium (Cozaar) 50 mg PO DAILY [facility] Last Admin: 10/17/17 09:16 Dose: 50 mg Omeprazole (Prilosec) 20 mg PO QDAC [facility] Last Admin: 10/17/17 05:45 Dose: 20 mg Prednisone 10 mg PO BID with food x5 DAYS Simvastatin (Zocor) 20 mg PO DAILY [facility] Last Admin: 10/17/17 09:16 Dose: 20 mg Sitagliptin Phosphate (Januvia) 50 mg PO DAILY [facility] Last Admin: 10/17/17 09:16 Dose: 50 mg ALLERGIES No Known Allergies Allergy (Verified 10/14/17 20:15) NEW PRESCRIPTIONS: Albuterol Sulfate [Proair Hfa] 2 puff IH TID #1 puff 10/17/17 (Sent hospital supply home with patient) Cefdinir [Omnicef] 300 mg PO BID #14 capsule 10/17/17 Prednisone 10 mg PO BIDWM #10 tablet 10/17/17 SMOKING: FORMER SMOKER NONE FOR 3 WEEKS SINCE August, PATIENT HAS RECEIVED ENCOURAGEMENT TO CONTINUE COMPLETE CESSATION OF TOBACCO USE. HE IS AWARE OF THE RISKS OF SMOKING AND BENEFITS OF COMPLETE CESSATION. HE IS AGREEABLE TO CONTINUE COMPLETE CESSATION. 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 AND POSSIBLE ADVERSE EFFECTS INHALER USE FOLLOW UP OUTPATIENT TESTING: REST/STRESS ECHO LAB REVIEW: 10/17/17 04:15 10/17/17 04:15 10/17/17 04:15: Sodium 137, Potassium 5.0, Chloride 106, Carbon Dioxide 23, Anion Gap 13.0, BUN 43 H, Creatinine 1.61 H, Estimated GFR (MDRD) 43.00, BUN/ Creatinine Ratio 26.70, Glucose 263 H, Calcium 9.1 10/17/17 04:15: WBC 23.56 H, RBC 4.05 L, Hgb 12.7 L, Hct 38.2 L, MCV 94.3 H, MCH 31.4 H, MCHC 33.2, RDW Coeff of Krissy 11.7, Plt Count 270, Immature Gran % ( Auto) 1.0, Neut % (Auto) 92.3, Lymph % (Auto) 4.4 L, [place] % (Auto) 2.2, Eos % ( Auto) 0.0, Baso % (Auto) 0.1, Immature Gran # (Auto) 0.2, Neut # (Auto) 21.8 H, Lymph # (Auto) 1.0, [place] # (Auto) 0.5, Eos # (Auto) 0.0, Baso # (Auto) 0.0 PLAN: DISCHARGE HOME TODAY, 10/17/[address] HAN IN HIS OFFICE ON 10/24/17 AT 11:30 A.M. RETURN TO [facility] ON 10/24/17 AT 6:40 A.M. FOR A RESTING/ STRESS ECHO BY DR. HAN. WEAR COMFORTABLE SHOES FOR WALKING ON THE TREADMILL RESUME YOUR HOME MEDICATIONS PER LIST PROVIDED BY THE NURSING STAFF NEW PRESCRIPTIONS OMNICEF 300 MG, TAKE ONE CAPSULE BY MOUTH TWICE DAILY FOR 7 DAYS PREDNISONE 10 MG, TAKE ONE TABLET BY MOUTH TWICE DAILY WITH FOOD FOR 5 DAYS PROAIR HFA, 2 PUFFS THREE TIMES DAILY ([facility] SUPPLY FOR HOME) WEAR YOUR HOME OXYGEN CONTINUOUSLY AT 2L/NC ACTIVITY GET PLENTY OF REST AT HOME. GRADUALLY INCREASE YOUR ACTIVITY LEVEL ACCORDING TO YOUR TOLERATION DIET CONSISTENT CARBS SUMMARY THE PATIENT IS ALERT AND ORIENTED X3. HE CURRENTLY RESIDES AT HOME WITH HIS SPOUSE. HE IS INDEPENDENT WITH ADL'S AND DOES NOT REQUIRE DME, HOME HEALTH OR HOMEMAKING SERVICES AT HOME. 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 HE DESIRES TO RETURN HOME AT DISCHARGE. MR. BOLAND WAS TESTED FOR POSSIBLE OXYGEN NEEDS AT DISCHARGE. HIS OXYGEN SATURATIONS WITH EXERTION WERE 91-94% ON ROOM AIR. HE WILL NOT REQUIRE OXYGEN AT THIS TIME. THE SKIN TURGOR IS INTACT AND WITHOUT DECUBITUS ULCERS. HYDRATION AND NUTRITIONAL STATUS ARE VERY GOOD. THE PATIENT HAS SHOWN GOOD CLINICAL IMPROVEMENT WITH THE TREATMENT PROVIDED DURING THIS STAY. HE AND HIS SPOUSE ARE AWARE AND AGREEABLE FOR TODAY'S DISCHARGE PLANS. CURRENT CODE STATUS FULL CODE ABDIRASHID URBINA APRN MARY HAN M.D.
--- NOTE | 2017-10-17 13:36 | US ---
EXAM: Bilateral carotid artery Doppler History: Dizziness and weakness. Technique: Multiple sonographic images through the bilateral internal carotid arteries were obtained . Color duplex Doppler was used to interrogate vascular flow. Findings: The right ICA peak systolic velocity is within normal limits measuring 0.9 meters per second. The ri ght ICA/cca PSV ratio is normal at 1.8. The right vertebral artery was not seen. Meeks scale images d emonstrate mild to moderate plaque buildup within the right internal carotid artery. The left ICA peak systolic velocity is within normal limits measuring 1.0 meters per second. The lef t ICA/cca PSV ratio is normal at 1.0. The left vertebral artery is patent and demonstrates antegrade flow. Meeks scale images demonstrate mild to moderate plaque buildup within the left internal caroti d artery. Impression: 1. No significant hemodynamic stenosis of the bilateral internal carotid arteries. 2. Nonvisualization of the right vertebral artery.
--- NOTE | 2017-10-17 14:33 | PN ---
DATE OF SERVICE: 10/16/17 SUBJECTIVE: The patient was hospitalized with pneumonia and emphysema. The patient's condition is steadily improving. He is feeling a lot better. His kidney functions have improved. The patient was seen and examined with the nurse practitioner. PLAN: 1. Continue steroids, antibiotics, nebs. 2. Counseling for smoking done. 3. Will do PFT. CONDITION: STABLE TIME SPENT: More than 30 minutes. Plan and coordination of the patient's care discussed in the presence of nurse. DAMARIS
--- NOTE | 2017-10-17 14:41 | PN ---
DATE OF SERVICE: 10/17/17 SUBJECTIVE: The patient was seen and examined with Nurse Practitioner. The patient's condition has improved and pneumonia has improved. He is going to be discharged home. The patient is going to have echo and stress echo ten days from now and carotid scan before discharge. CONDITION: Stable. TIME SPENT: More than 30 minutes. Plan and coordination of the patient's care discussed in the presence of nurse. DAMARIS
--- NOTE | 2017-10-17 14:42 | PN ---
10/14/17: Level 5 10/15/17: Intermediate 10/16/17: Intermediate 10/17/17: D as in discharge MTDD
--- NOTE | 2017-10-20 15:01 | DS ---
DATE OF SERVICE: 10/17/17 FINAL DIAGNOSIS: 1. Pneumonia 2. Emphysema 3. COPD 4. Dyslipidemia 5. Hypertension 6. Diabetes Mellitus type 2 7. GERD 8. Osteoarthritis, right knee 9. Degenerative osteoarthritis, left shoulder 10.Rotator cuff tear and repair 11.Left nephrectomy, 2011 12.Skin cancer, left cheek, excised, 05/28/17 (DR. Rucker) 13.Former tobacco use, 1.5 pack per day x 55 years, none for three weeks. LAST VITALS: Temperature 98, pulse 62, respiratory rate 15, blood pressure 143/81 and pulse ox 91%. DISCHARGE INSTRUCTIONS: Discharge home today, 10/17/17. Return to see Dr. Melendez in his office on at 11:30am. Return to [facility] on 10/24/17 at 6:40am. For resting/stress echo by Dr. Melendez. Wear comfortable shoes for walking on the treadmill. Resume your home medications as per list provided by the nursing staff. MEDICATIONS AT DISCHARGE: ProAir two puffs IH three times a day Aspirin 81mg PO daily Coreg 6.25 Po twice a day Omnicef 300mg PO twice a day for 7 days Cardizem 90mg PO twice a day [place] 3 1000mg PO daily Lantus 90 unit SUBCUT QPM Tradjenta 5mg PO daily Cozaar 50mg PO daily Prilosec 20mg PO QDAC Prednisone 10mg PO twice a day Zocor 20mg Po daily Januvia 50mg PO daily ALLERGIES: No known allergies NEW PRESCRIPTIONS: ProAir 2 puff IH three times a day Omnicef 300mg PO twice a day Prednisone 10mg PO twice a day DIET INSTRUCTIONS: Consistent Carbohydrates ACTIVITY: Get plenty of rest at home. Gradually increase activity level according to toleration. SMOKING: Former smoker None for three weeks Since August 2017 Patient has received encouragement to continue complete cessation of tobacco use. He is aware of the risk of smoking and benefits of complete cessation. He is agreeable to continue complete cessation. 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 He had been experiencing this for a few days and was beginning to get more and more short of breath. On admission his kidney function was elevated due to dehydration and his WBC was elevated at 13,000. Chest x-ray showed bibasilar pneumonia. The patient was admitted and placed on Rocephin 1 gram IV daily, put on sliding scale coverage. He was initially put on 40mg of Solu-Medrol IV Q 8 hours and I increased that to 80mg IV Q 8 hours. He was on DUO NEBS Q 6 hour scheduled and we continued all his home medications. He was initially on normal saline at 75cc an hour. His kidney function improved after the second day and his fluids were stopped. Today we are about at his baseline a BUN of 43 and creatinine 1.61. He does have chronic kidney disease. His WBC has elevated even more however he has been on high dose steroids. Initial ABG's his oxygen 89% and we are now 95% on room air. He was wearing 2 liters of oxygen the first 48 hours however this has been discontinued. For the past 24 hours he has been up and about walking around without oxygen. He has been eating 75-100% of meals and has significantly improved. The three step oxygen test was done prior to discharge which he passed and does not require any oxygen. He will be discharged home today in stable condition with Omnicef 300mg twice a day for next 7 days as well as Prednisone 10mg twice a day for the 5 days. He does not have a nebulizer machine at home or any inhalers. He will sent home on a ProAir inhaler he is instructed to use three times a day scheduled and followup with us in the office next week. TIME SPENT: More than 60 minutes. DAMARIS
== END 2017-10-17 13:51 | disposition home or self-care (01) | DRG 191 ==
LOC: ED 20:10 → MEDSURG B 23:04
PROVIDERS: ADMIT Internal Medicine; ATTEND Internal Medicine
DX: J44.1 Chronic obstructive pulmonary disease with (acute) exacerbation (principal); I50.1 Left ventricular failure, unspecified; R06.02 Shortness of breath; E11.9 Type 2 diabetes mellitus without complications; E78.5 Hyperlipidemia, unspecified; E86.0 Dehydration; E88.81 Metabolic syndrome and other insulin resistance; I10 Essential (primary) hypertension; R06.00 Dyspnea, unspecified; G62.9 Polyneuropathy, unspecified; J43.9 Emphysema, unspecified; K21.9 Gastro-esophageal reflux disease without esophagitis; N18.2 Chronic kidney disease, stage 2 (mild); M17.12 Unilateral primary osteoarthritis, left knee; M19.012 Primary osteoarthritis, left shoulder; Z72.0 Tobacco use; Z79.4 Long term (current) use of insulin
CPT/HCPCS: 36415; 80048; 80053; 82550; 82803; 82962; 83605; 83880; 84145; 84484; 85025; 87040; 93005; 93010; 94640; 94761; 96365; 96375; 97802; 99285

== ENCOUNTER 2023-04-08 12:59 | Observation (INO) ==
--- NOTE | 2023-04-08 13:23 | ED.PDOC ---
General ED Provider: Dr. KATI VALENCIA Chief Complaint: Weakness Stated Complaint: Patient is a 77-year-old male with a history of multiple medical problems who comes to the ER with a 3-week history of legs giving out when he is walking and with his arms jerking intermittently. He is also having difficulty holding onto glass of water and has dropped his glasses. Was to follow-up with the PCP today but was told to come to the ER for evaluation press. He has a history of right ankle surgery in December last year. Time Seen by Provider: 04/08/23 13:09 Information Source: Patient and Family Primary Care Provider: DUKE STROUD Nursing and Triage Documentation Reviewed and Agree: Yes What is Opioid Naive?: *Opioid Naive implies the patient is not already taking opioids or not chronically receiving opioids on a daily basis. *PRN dosing is not "usually" associated with tolerance. *Patients are at higher risk of over-sedation and aspiration. What is Opioid Tolerant?: *Opioid Tolerance implies less than the expected response to an opioid. *Acquired tolerance is defined by the patient taking 60mg of oral morphine daily (or equianalgesic dose of another opioid) for 1 week or more. *Often associated with chronic pain. *May take more than usual dose to achieve desired pain control. Neurological Complaint Exam Weakness Complaint/Exam Last Known Well: 3 weeks Onset: Gradual Duration: 3 weeks Symptoms Are: Still present Associated Signs and Symptoms: Denies Nausea, Vomiting, Diaphoresis, Tinnitus, Chest pain, Short of air, Palpitations, Unsteady gait, GI blood loss, Visual changes, Decreased oral intake, Change in medication, Change in diet, OTC meds or Loss of balance Cardiac Risk Factors: Reports None CVA Risk Factors: Reports None Related Surgical History: Reports None Nystagmus Present: No Gag Reflex Present: No Meningeal Signs Positive: No Focal Weakness: Present None Focal Sensory Loss: Present None Gait: Normal [id number]: Normal Findings Babinski Sign: Positive Right Heel to Toe Normal: No Quality Indicators for AMI: EKG in 10min. Review of Systems Review Of Systems Constitutional: Reports No symptoms Eyes: Reports No symptoms Ears, Nose, Mouth, Throat: Reports Other (Dry mouth ) Cardiac: Reports No symptoms GI: Reports No symptoms : Reports No symptoms Musculoskeletal: Reports No symptoms Skin: Reports No symptoms Neurological: Reports No symptoms Endocrine: Reports No symptoms All Other Systems: Reviewed and Negative PFSH Medical History Right knee pain M25.561 - Pain in right knee (ICD-10) History of smoking Z87.891 - Personal history of nicotine dependence (ICD-10) Hypertension I10 - Essential (primary) hypertension (ICD-10) Hyperlipidemia E78.5 - Hyperlipidemia, unspecified (ICD-10) Atherosclerosis of coronary artery I25.10 - Atherosclerotic heart disease of [place] coronary artery without angina pectoris (ICD-10) Diabetes mellitus E11.9 - Type 2 diabetes mellitus without complications (ICD-10) Family History Mother No problems noted. FATHER Cerebrovascular accident BROTHER Diabetes Social History Smoking and tobacco status: Former smoker Alcohol intake: former Substance use type: does not use Water heater temperature set < 120 degrees: Yes Working smoke detector in home: Yes Fire extinguisher in home: Yes Carbon monoxide detector in home: Yes Surgical History H/O shoulder surgery Z98.89 - Other specified postprocedural states (ICD-10) H/O kidney removal Z90.5 - Acquired absence of kidney (ICD-10) History of musculoskeletal system surgery Z98.890 - Other specified postprocedural states (ICD-10) Kidney excision Physical Exam Physical Exam Appearance: Reports Ill-appearing and Obese Ill-appearing: Mild Pain Distress: None Eyes: Reports JUAN, EOMI and Conjunctiva clear ENT: Reports Dry mucosa Respiratory: Reports Airway patent, Breath sounds clear, Breath sounds equal and Respirations nonlabored Cardiovascular: Reports RRR GI/: Reports Soft and Nontender Musculoskeletal: Reports Normal strength, ROM intact and No edema Skin: Reports Warm, Dry and Normal color Neurological: Reports Sensation intact, Motor intact, Cranial nerves intact, Alert and Oriented; Denies Disoriented Psychiatric: Reports Anxious NIH Stroke Scale 1a. Level of Consciousness: 0=Alert and keenly responsive 1b. Level of Consciousness Questions: 0=Answers correctly to two questions 1c. Level of Consciousness Commands: 0=Performs two tasks correctly 2. Best Gaze: 0=Normal 3. Visual: 0=No visual loss 4. Facial Palsy: 0=Normal 5a. Motor Left Arm: 0=No drift,arm holds 90 degrees for 10 sec., leg 30 degrees for 5 sec. 5b. Motor Right Arm: 0=No drift,arm holds 90 degrees for 10 sec., leg 30 degrees for 5 sec. 6a. Motor Left Le=No drift,arm holds 90 degrees for 10 sec., leg 30 degrees for 5 sec. 6b. Motor Right Le=No drift,arm holds 90 degrees for 10 sec., leg 30 degrees for 5 sec. 7. Limb Ataxia: 0=Absent 8. Sensory: 0=Normal 9. Best Language: 0=No aphasia 10. Dysarthria: 0=Normal 11. Extincion and Inattention: 0=Normal Stroke Scale Total: 0 Interpretation EKG Interpretation EKG Interpretation By: ED Physician Time of EKG #1: 13:31 Rate: Normal Rhythm: Sinus Ectopy: None [place]: NL ST Segment: Normal Interpretation: RBBB EKG Comparison: No significant changes Radiology Interpretation Radiology Interpretation By: Radiologist Radiology Results: Negative Exam Interpreted: CT Scan Critical Care Note Critical Care Note Total Critical Care Time (mins): 30 Comments: Critical time spent 30 minutes managing severe hypoglycemia and acute on chronic renal failure with IV fluids. Course Course 04/08/23 13:33 04/08/23 13:33 Orders, Labs, Meds: Lab Review 04/08/23 04/08/23 04/08/23 13:33 14:00 14:22 WBC 9.35 RBC 4.40 L Hgb 13.4 L Hct 42.6 MCV 96.8 H MCH 30.5 MCHC 31.5 L RDW Coeff of Krissy 13.1 Plt Count 216 Immature Gran % (Auto) 0.6 Neut % (Auto) 64.4 Lymph % (Auto) 20.9 [place] % (Auto) 11.8 H Eos % (Auto) 2.0 Baso % (Auto) 0.3 Neut # (Auto) 6.0 Lymph # (Auto) 2.0 [place] # (Auto) 1.1 Eos # (Auto) 0.2 Baso # (Auto) 0.0 Immature Gran # (Auto) 0.1 PT 11.6 H INR 1.13 APTT 25.8 Puncture Site [place] Excess 3.5 H O2 Saturation 83.8 L ABG pH 7.39 ABG pCO2 47.0 H ABG pO2 49.0 L* ABG HCO3 28.5 H ABG Total CO2 29.9 H Julian Test Pos Hemoglobin 0.9 Oxyhemoglobin 82.3 L Carboxyhemoglobin 1.7 H Total Hemoglobin 14.0 FiO2 % 21.0 Sodium 131.0 L Potassium 4.10 Chloride 92.7 L Carbon Dioxide 27.3 Anion Gap 15.10 BUN 52.8 H Creatinine 2.66 H Estimated GFR (MDRD) 24.00 BUN/Creatinine Ratio 19.84 Glucose 577.5 H* Hemoglobin A1c > 14.00 H Calcium 8.08 L Total Bilirubin 0.54 AST 19.6 ALT 18.2 Alkaline Phosphatase 71.5 Total Protein 7.19 Albumin 3.63 Globulin 3.56 Albumin/Globulin Ratio 1.01 SARS CoV-2 RNA Rapid SALTY 04/08/23 14:35 WBC RBC Hgb Hct MCV MCH MCHC RDW Coeff of Krissy Plt Count Immature Gran % (Auto) Neut % (Auto) Lymph % (Auto) [place] % (Auto) Eos % (Auto) Baso % (Auto) Neut # (Auto) Lymph # (Auto) [place] # (Auto) Eos # (Auto) Baso # (Auto) Immature Gran # (Auto) PT INR APTT Puncture Site Base Excess O2 Saturation ABG pH ABG pCO2 ABG pO2 ABG HCO3 ABG Total CO2 Julian Test Hemoglobin Oxyhemoglobin Carboxyhemoglobin Total Hemoglobin FiO2 % Sodium Potassium Chloride Carbon Dioxide Anion Gap BUN Creatinine Estimated GFR (MDRD) BUN/Creatinine Ratio Glucose Hemoglobin A1c Calcium Total Bilirubin AST ALT Alkaline Phosphatase Total Protein Albumin Globulin Albumin/Globulin Ratio SARS CoV-2 RNA Rapid SALTY Negative Orders Category Date Time Status ADMIT OBSERVATION [PLACE PATIENT OBSERVATION] .TO ADMISSION 04/08/23 14:49 Active MEDSURG (MONITORED BED) ABG DRAW REQUEST Stat CARDIO 04/08/23 13:55 Completed EKG-(ED ONLY) Stat CARDIO 04/08/23 13:24 Completed OXYGEN Routine CARDIO 04/08/23 14:50 Ordered TELEMETRY MONITORING TELE CARE 04/08/23 14:49 Active ED ACCUCHECK ASSESSMENT .ONCE EMERGENCY 04/08/23 13:24 Active ED APPLY O2 .ONCE EMERGENCY 04/08/23 13:24 Active ED IV/MEDIPORT/POWERPORT .ONCE EMERGENCY 04/08/23 13:24 Active ABG COOX Stat LAB 04/08/23 14:22 Completed CBC W/ AUTO DIFF Stat LAB 04/08/23 13:33 Completed COMPREHENSIVE METABOLIC PANEL Stat LAB 04/08/23 13:33 Completed COVID [SARS COV-2 RNA RAPID SALTY] Stat LAB 04/08/23 14:35 Completed HEMOGLOBIN A1C Stat LAB 04/08/23 14:00 Completed PARTIAL THROMBOPLASTIN TIME Stat LAB 04/08/23 13:33 Completed PT WITH INR Stat LAB 04/08/23 13:33 Completed 0.9 % Sodium Chloride [Saline Flush] Meds 04/08/23 13:23 Active 1 syr IVF PRN PRN Sodium Chloride 0.9% [Sodium Chloride] 1,000 ml Meds 04/08/23 14:[address] HEAD W/O CONTRAST Stat RADS 04/08/23 13:24 Completed Medications Generic Name Dose Route Start Last Admin Trade Name Freq PRN Reason Stop Dose Admin Sodium Chloride 1,000 mls @ 1,000 mls/hr 04/08/23 14:00 04/08/23 14:19 Sodium Chloride IV 04/08/23 14:59 1,000 mls/hr BOLUS STA Administration Sodium Chloride 1 syr 04/08/23 13:23 0.9% Sodium Chloride 10 Ml Disp.Syrin IVF PRN PRN To flush IV Vital Signs: Temp Pulse Resp BP Pulse Ox O2 Flow Rate 04/08/23 14:31 2 04/08/23 13:05 97.9 F 90 20 150/90 H 91 L Physician Progress Note: [] Discharge Plan Discharge Patient Disposition: PLACED OBSERVATION Discharge Problem: Bilateral leg weakness Hyperglycemia due to type 2 diabetes mellitus Qualifiers: Diabetes mellitus intermediate card tender insulin use: with intermediate card tender use Qualified Code(s): E11.65 - Type 2 diabetes mellitus with hyperglycemia Acute renal failure (ARF) Qualifiers: Acute renal failure type: unspecified Qualified Code(s): N17.9 - Acute kidney failure, unspecified Did you review [place] [employer] for ALL controlled substances?: Not Applicable ED Provider: KATI VALENCIA Condition: Fair [place] Coma Scale [place] Coma Scale Eye Opening Response: Spontaneously Best Verbal Response: Oriented to Time, Place, and Person Best Motor Resposne: Obeys Commands [place] Coma Scale Score Total: 15 Response Scores: Best Response = 15 Comatose Client = 8 or Less Totally Unresponsive = 3
[2023-04-08 13:37] LABS: BASOPHILS % (AUTO) 0.3 % (0.0-3.0); EOSINOPHILS # (AUTO) 0.2 K/ul (0.0-0.7); HEMATOCRIT 42.6 % (42.0-52.0); HEMOGLOBIN 13.4 g/dl (14.0-18.0); IMMATURE GRANULOCYTE # (AUTO) 0.1 (0.0-1.0); IMMATURE GRANULOCYTE % (AUTO) 0.6 % (0.0-5.0); LYMPHOCYTES % (AUTO) 20.9 (10.0-50.0); MEAN CORPUSCULAR HEMOGLOBIN 30.5 pg (27.0-31.0); MEAN CORPUSCULAR HGB CONC 31.5 (31.8-35.4); MEAN CORPUSCULAR VOLUME 96.8 fl (80.0-94.0); MONOCYTES # (AUTO) 1.1 K/uL (0.4-2.0); MONOCYTES % (AUTO) 11.8 (0-10); NEUTROPHILS % (AUTO) 64.4 % (42.2-75.2); PLATELET COUNT 216 10^3/uL (140-440); RDW COEFFICIENT OF VARIATION 13.1 % (11.6-14.8); WHITE BLOOD COUNT 9.35 K/ul (4.2-10.2)
[2023-04-08 13:51] LABS: ALANINE AMINOTRANSFERASE 18.2 U/L (0-50); ALBUMIN 3.63 g/dL (3.5-5.0); ALKALINE PHOSPHATASE 71.5 U/L (56-119); ASPARTATE AMINO TRANSFERASE 19.6 U/L (17-59); BILIRUBIN,TOTAL 0.54 mg/dL (0.2-1.3); BLOOD UREA NITROGEN 52.8 mg/dL (9-20); CALCIUM 8.08 mg/dL (8.4-10.2); CARBON DIOXIDE 27.3 mmol/L (22-30.0); CHLORIDE 92.7 mmol/L (98-107); CREATININE 2.66 mg/dL (0.60-1.10); POTASSIUM 4.1 mmol/L (3.5-5.1); TOTAL PROTEIN 7.19 g/dL (6.3-8.2)
[2023-04-08 13:53] LABS: PARTIAL THROMBOPLASTIN TIME 25.8 SEC (23.9-40.0); PROTHROMBIN TIME 11.6 SEC (9.3-11.0)
[2023-04-08 13:59] LABS: GLUCOSE 577.5 mg/dL (74-106)
[2023-04-08] MEDS ORDERED: SODIUM CHLORIDE 1,000 ML IV STA (14:00)
--- NOTE | 2023-04-08 14:11 | CT ---
EXAMINATION: HEAD CT WITHOUT CONTRAST HISTORY: Extremity weakness. TECHNIQUE: Noncontrast CT of the brain was performed with images acquired from skull base to vertex. Contrast Dose: None CT Dose Reduction Techniques Performed: Yes COMPARISON: CT head 10/30/2018 FINDINGS: Topogram demonstrates no significant abnormality. Intraparenchymal hemorrhage: None. Parenchyma: Normal waggoner-white differentiation. No mass effect or midline shift. Extra-axial spaces and Basal cisterns: Normal. Chronic: Mild periventricular white matter hypodensities which are nonspecific, however likely due to chronic microvascular ischemia. Mild to moderate cortical volume loss. Atherosclerotic calcificati on of the bilateral carotid siphons and intracranial vertebral arteries. Ventricles: Concordant with the degree of parenchymal volume loss. Paranasal sinuses and mastoid air cells: Paranasal sinuses are clear. Mastoid air cells are clear. Orbits: Normal visualized portions. Sella/Skull Base: Normal. Other: Scalp and visualized soft tissues are normal. Calvarium is normal. IMPRESSION: No acute intracranial abnormality. If high clinical suspicion for infarct, MRI could be performed fo r further evaluation. All CT scans are performed using dose optimization techniques as appropriate to the performed exam an d include at least one of the following: Automated exposure control, adjustment of the mA and/or kV according t o size, and the use of iterative reconstruction technique.
[2023-04-08 14:25] LABS: ABG O2 HGB 82.3 % (95-100); ABG PH 7.39 (7.35-7.45); BEecf 3.5 (-2.0-3.0); COHb 1.7 (0.5-1.5); HCO3 28.5 (21-28); MetHb 0.9 (0-1.5); TCO2 29.9 (19-24); sO2 83.8 % (94-98)
--- NOTE | 2023-04-08 14:51 | PCM ---
Date of Service Date Seen by Provider: 04/08/23 Time Seen by Provider: 15:00 Admit Day/Time Admission Date: 04/08/23 Admission Time: 14:49 Reason for Admission Chief Complaint: HYPERGLYCEMIA; ACUTE RENAL FAILURE Hospital Provider Hospital Provider: Sandrita Godfrey PA-C, [facility] Primary Care Physician Primary Care Physician: DUKE STROUD History of Present Illness History of Present Illness: Patient is a 77 year old male with pmhx of DMT2, renal failure, hyperlipdemia, COPD with chronic respiratory failure, polycystic kidney disease, BPH, GERD who presented to the ER with frequent falls, feeling jittery, having difficulty holding onto things with his hands, and his legs "giving out on him." No unilateral weakness. This has been ongoing for past few weeks. Although he is a poor historian and timeline seems questionable when talking about recent events. He states he's had about 4 falls in past week but unable to provide specific details. He and his state he broke his right foot 2 weeks ago, when it was last December. Pt seems unclear on his insulin dosing and whether or not he does mealtime insulin. He states he wears a mask at night for bedtime but states he does not have a cpap, he never followed up for a sleep study. He then is unable to tell me how much oxygen, if any, he wears at home. Later states he wears oxygen prn but tends to wear it most of the time. Pt was found in the ER to have glucose >500, A1c >14, and Cr bumped to 2.6, baseline 1.9-2.0. Patient ct head negative for acute findings. He was given a liter of fluids while in ER. Case Discussed With Case Discussed With: Patient's case was discussed with the ER Physicians, Dr. Peacock [facility] Medical History Right knee pain M25.561 - Pain in right knee (ICD-10) History of smoking quit 05/2021 Z87.891 - Personal history of nicotine dependence (ICD-10) Hypertension I10 - Essential (primary) hypertension (ICD-10) Hyperlipidemia for years E78.5 - Hyperlipidemia, unspecified (ICD-10) Atherosclerosis of coronary artery for a few years I25.10 - Atherosclerotic heart disease of [place] coronary artery without angina pectoris (ICD-10) Diabetes mellitus for years E11.9 - Type 2 diabetes mellitus without complications (ICD-10) Surgical History H/O shoulder surgery left Z98.89 - Other specified postprocedural states (ICD-10) H/O kidney removal Z90.5 - Acquired absence of kidney (ICD-10) History of musculoskeletal system surgery Rotator cuff repair left shoulder Z98.890 - Other specified postprocedural states (ICD-10) Kidney excision left kidney removed 1 years ago Family History Mother No problems noted. FATHER Cerebrovascular accident BROTHER Diabetes Social History Smoking and tobacco status: Former smoker Alcohol intake: former Substance use type: does not use Water heater temperature set < 120 degrees: Yes Working smoke detector in home: Yes Fire extinguisher in home: Yes Carbon monoxide detector in home: Yes Allergies Allergies Allergy/AdvReac Type Severity Reaction Status Date / Time No Known Allergies Allergy Verified 04/08/23 13:17 Current Medications Home Medications albuterol sulfate 90 mcg/actuation aerosol inhaler (Ventolin HFA) 2 puff inhalation Q4H PRN Shortness Of Breath 10/31/21 [History Confirmed 04/08/23 Last Taken 10/30/21] insulin glargine 100 unit/mL subcutaneous solution (Lantus U-100 Insulin) 60 unit (0.6 mL) subcut BID #40 mL 08/06/22 [Rx Confirmed 04/08/23 Last Taken Unknown] lancets 30 gauge (Sure Comfort Lancets) #100 ea 08/08/22 [Rx Confirmed 04/08/23 Last Taken Unknown] insulin syringe-needle U-100 1 mL 31 gauge x 5/16" (BD Insulin Syringe Ultra- Fine) #100 packets 09/03/22 [Rx Confirmed 04/08/23 Last Taken Unknown] blood sugar diagnostic (Contour Next Test Strips) #100 ea 09/06/22 [Rx Confirmed 04/08/23 Last Taken Unknown] atorvastatin 40 mg tablet See Rx Instructions .Route .COMPLEX #30 tabs 10/07/22 [Rx Confirmed 04/08/23 Last Taken Unknown] bumetanide 0.5 mg tablet 0.5 mg PO BID 04/08/23 [History Confirmed 04/08/23 Last Taken Unknown] calcitriol 0.25 mcg capsule 0.25 mcg PO .COMPLEX 04/08/23 [History Confirmed 04/08/23 Last Taken Unknown] dapagliflozin propanediol 10 mg tablet (Farxiga) 10 mg PO DAILY 04/08/23 [History Confirmed 04/08/23 Last Taken Unknown] ergocalciferol (vitamin D2) 1,250 mcg (50,000 unit) capsule (Vitamin D2) 50,000 unit PO WEEKLY 04/08/23 [History Confirmed 04/08/23 Last Taken Unknown] fluticasone furoate 100 mcg-vilanterol 25 mcg/dose inhalation powder (Breo Ellipta) 1 inh inhalation DAILY 04/08/23 [History Confirmed 04/08/23 Last Taken Unknown] pantoprazole 40 mg tablet,delayed release (Protonix) 40 mg PO DAILY 04/08/23 [History Confirmed 04/08/23 Last Taken Unknown] tamsulosin 0.4 mg capsule 0.4 mg PO DAILY 04/08/23 [History Confirmed 04/08/23 Last Taken Unknown] tramadol 50 mg tablet 50 mg PO Q8H PRN pain 04/08/23 [History Confirmed 04/08/23 Last Taken Unknown] carvedilol 6.25 mg tablet (Coreg) 6.25 mg PO BID #60 tabs 04/09/23 [Rx Last Taken Unknown] losartan 50 mg-hydrochlorothiazide 12.5 mg tablet 1 tab PO DAILY #30 tabs 04/09/23 [Rx Last Taken Unknown] semaglutide 1 mg/dose (4 mg/3 mL) subcutaneous pen injector (Ozempic) 1 mg (0.75 mL) subcut WEEKLY DIABETIC #3 mL 04/09/23 [Rx Last Taken Unknown] Home Acetaminophen (Acetaminophen 325 Mg Tablet) 650 mg PO Q4H PRN PRN Reason: Mild Pain Albuterol Sulfate (Albuterol Sulfate 8 Gm Inhaler) 2 puff IH Q4H PRN PRN Reason: shortness of breath Atorvastatin Calcium (Atorvastatin Calcium 20 Mg Tablet) 40 mg PO BEDTIME ESTEBAN Last Admin: 04/08/23 21:03 Dose: 40 mg Budesonide/Formoterol Fumarate (Budesonide/Formoterol Fumarate 80/4.5 Mcg Hfa.Aer.Ad) 2 puff IH BID [facility] Last Admin: 04/09/23 09:00 Dose: 2 puff Insulin Glargine (Insulin Glargine,Hum.Rec.Anlog 100 Units/Ml) 60 unit SUBCUT BID [facility] Last Admin: 04/09/23 09:02 Dose: 60 unit Insulin Human Lispro (Insulin Lispro 100 Unit/Ml Vial) 0 unit SUBCUT PRN PRN; Protocol PRN Reason: Hyperglycemia Last Admin: 04/08/23 21:09 Dose: 10 unit Non-Formulary Medication (Dapagliflozin Propanediol [Farxiga]) 10 mg PO DAILY [facility] Last Admin: 04/09/23 09:01 Dose: 10 mg Ondansetron HCl (Ondansetron Hcl/Pf 4 Mg/2 Ml Sdv) 4 mg IVP Q6H PRN PRN Reason: Nausea / Vomiting Pantoprazole Sodium (Pantoprazole Sodium 40 Mg Tablet.Dr) 40 mg PO QDAC2 [facility] Last Admin: 04/09/23 09:01 Dose: 40 mg Sodium Chloride (0.9% Sodium Chloride 10 Ml Disp.Syrin) 1 syr IVF PRN PRN PRN Reason: To flush IV Last Admin: 04/09/23 04:11 Dose: 1 syr Sodium Chloride (0.9% Sodium Chloride 10 Ml Disp.Syrin) 1 syr IVF Q8HR [facility] Last Admin: 04/09/23 04:11 Dose: 1 syr Tamsulosin HCl (Tamsulosin Hcl 0.4 Mg Cap.Er.24h) 0.4 mg PO DAILY [facility] Last Admin: 04/09/23 09:00 Dose: 0.4 mg Tramadol HCl (Tramadol Hcl 50 Mg Tablet) 50 mg PO Q8H PRN PRN Reason: MODERATE PAIN Discontinued Medications Budesonide/Formoterol Fumarate (Budesonide/Formoterol Fumarate 80/4.5 Mcg Hfa.Aer.Ad) 1 puff IH BID [facility] Last Admin: 04/08/23 21:01 Dose: 1 puff Sodium Chloride (Sodium Chloride) 1,000 mls @ 1,000 mls/hr IV BOLUS STA Stop: 04/08/23 14:59 Last Infusion: 04/08/23 16:07 Dose: Infused Lactated Ringer's (Lactated Ringers) 1,000 mls @ 85 mls/hr IV .[id number] Stop: 04/09/23 03:12 Last Infusion: 04/09/23 09:24 Dose: Infused Opioid Naive vs. Tolerant Does Patient Take Opioids?: No Is Patient Opioid Naive?: Yes What is Opioid Naive?: *Opioid Naive implies the patient is not already taking opioids or not chronically receiving opioids on a daily basis. *PRN dosing is not "usually" associated with tolerance. *Patients are at higher risk of over-sedation and aspiration. Is Patient Opioid Tolerant?: No What is Opioid Tolerant?: *Opioid Tolerance implies less than the expected response to an opioid. *Acquired tolerance is defined by the patient taking 60mg of oral morphine daily (or equianalgesic dose of another opioid) for 1 week or more. *Often associated with chronic pain. *May take more than usual dose to achieve desired pain control. Review of Systems Constitutional: Reports Fatigue and Weakness Head: Reports Normocephalic and Atraumatic Cardiovascular: Denies Chest pain, Chest Pressure or Edema Respiratory: Reports Shortness of air; Denies Cough Gastrointestinal: Denies Nausea, Vomiting, Diarrhea or Abdominal pain Genitourinary: Denies Dysuria or Hematuria Dermatologic: Denies Rashes Neurological: Reports Weakness and Problems with walking Physical examination Most Recent Vital Signs: Most Recent Vital Signs Temperature 97.9 F 04/08/23 13:05 Temperature Source Infrared 04/08/23 13:05 Pulse Rate 90 04/08/23 13:05 Respiratory Rate 20 04/08/23 13:05 Blood Pressure 150/90 H 04/08/23 13:05 O2 Sat by Pulse Oximetry 91 L 04/08/23 13:05 Oxygen Flow Rate 2 04/08/23 14:31 Height 5 ft 9 in 04/08/23 13:05 Weight 230 lb 04/08/23 13:05 Telemetry Heart Rate 75 10/19/17 10:00 Telemetry SPO2 93 10/19/17 10:00 Appearance: Positive No Apparent Distress and Alert and Oriented x3 (does have difficulty with his timeline of events, remembering specifics regarding his pmhx ) Skin: Positive [place], Warm and Good Turgor; Negative Rashes HEENT: Positive Normocephalic and Atraumatic Neck: Positive Supple and Midline Trachea Chest/Lungs: Positive Symmetrical With Equal Breath Sounds and Other (+diminished christie, no wheezing, non labored breathing, airway intact ) Heart: Positive RRR GI/: Positive Soft, Nontender, Bowel Sounds Normal and No Distention Extremities: Positive Edema (1+ nonpitting edema christie lower ext ) Neurological: Positive Alert, Oriented and Other (generalized weakness, no focal deficits, able to follow commands, equal strength, equal facial symmetry. ) Psychiatric: Positive Appropriate Mood and Appropriate Affect; Negative Good Short-Term Recall Labs This Visit Labs This Visit: Labs This Visit 04/08/23 04/08/23 04/08/23 13:33 14:00 14:22 WBC 9.35 RBC 4.40 L Hgb 13.4 L Hct 42.6 MCV 96.8 H MCH 30.5 MCHC 31.5 L RDW Coeff of Krissy 13.1 Plt Count 216 Immature Gran % (Auto) 0.6 Neut % (Auto) 64.4 Lymph % (Auto) 20.9 [place] % (Auto) 11.8 H Eos % (Auto) 2.0 Baso % (Auto) 0.3 Neut # (Auto) 6.0 Lymph # (Auto) 2.0 [place] # (Auto) 1.1 Eos # (Auto) 0.2 Baso # (Auto) 0.0 Immature Gran # (Auto) 0.1 PT 11.6 H INR 1.13 APTT 25.8 Puncture Site [place] Excess 3.5 H O2 Saturation 83.8 L ABG pH 7.39 ABG pCO2 47.0 H ABG pO2 49.0 L* ABG HCO3 28.5 H ABG Total CO2 29.9 H Julian Test Pos Hemoglobin 0.9 Oxyhemoglobin 82.3 L Carboxyhemoglobin 1.7 H Total Hemoglobin 14.0 FiO2 % 21.0 Sodium 131.0 L Potassium 4.10 Chloride 92.7 L Carbon Dioxide 27.3 Anion Gap 15.10 BUN 52.8 H Creatinine 2.66 H Estimated GFR (MDRD) 24.00 BUN/Creatinine Ratio 19.84 Glucose 577.5 H* Hemoglobin A1c > 14.00 H Calcium 8.08 L Total Bilirubin 0.54 AST 19.6 ALT 18.2 Alkaline Phosphatase 71.5 Total Protein 7.19 Albumin 3.63 Globulin 3.56 Albumin/Globulin Ratio 1.01 Imaging Imaging: EXAMINATION: HEAD CT WITHOUT CONTRAST HISTORY: Extremity weakness. TECHNIQUE: Noncontrast CT of the brain was performed with images acquired from skull base to vertex. Contrast Dose: None CT Dose Reduction Techniques Performed: Yes COMPARISON: CT head 10/30/2018 FINDINGS: Topogram demonstrates no significant abnormality. Intraparenchymal hemorrhage: None. Parenchyma: Normal waggoner-white differentiation. No mass effect or midline shift. Extra-axial spaces and Basal cisterns: Normal. Chronic: Mild periventricular white matter hypodensities which are nonspecific, however likely due to chronic microvascular ischemia. Mild to moderate cortical volume loss. Atherosclerotic calcification of the bilateral carotid siphons and intracranial vertebral arteries. Ventricles: Concordant with the degree of parenchymal volume loss. Paranasal sinuses and mastoid air cells: Paranasal sinuses are clear. Mastoid air cells are clear. Orbits: Normal visualized portions. Sella/Skull Base: Normal. Other: Scalp and visualized soft tissues are normal. Calvarium is normal. IMPRESSION: No acute intracranial abnormality. If high clinical suspicion for infarct, MRI could be performed for further evaluation. Review Statement Review Statement: I have independently reviewed and interpreted the labs/EKGs/imaging that were ordered by the ER provider. I have reviewed all outside records that are available currently in our EMR including imaging/notes/labs from previous visits. Plan Plan: 1. Hyperglycemia, symptomatic - PT A1c >14. Takes long acting insulin BID. Start humalog aggressive sliding scale. Diabetic diet. Accuchecks achs. If not impr oving will start on insulin drip. Not in HHS/DKA. 2. PAUL, stage I - Fluid bolus given in ER. Will gently hydrate with LR at 85 ml/hr overnight. 3. Hypotension - Hold antihypertensives. Once hydrated, will check orthostats due to frequent falls. 4. Weakness - PT/OT 5. DMT2, uncontrolled - Dust Brush Assembler consult. Will need close f/u outpatient. 6. BPH - Cont home meds 7. GERD - Cont home meds 8. Hyperlipidemia - Cont home meds Time Spent: Greater than 80 minutes spent with patient, 50% of the time spent with this patient was devoted to counseling and coordination of care. [facility] minutes spent discussing advance care planning. FULL CODE Admit to: Obs Discussed Plan of Care with Dr. Elena Melendez. Medications Medication Orders: Medications Ordered Category Date Time Status 0.9 % Sodium Chloride [Saline Flush] Meds 04/08/23 13:23 Active 1 syr IVF PRN PRN Sodium Chloride 0.9% [Sodium Chloride] 1,000 ml Meds 04/08/23 14:00 Active IV BOLUS
[2023-04-08 14:55] LABS: SARS COV-2 RNA RAPID NAAT NEGATIVE (NEGATIVE)
[2023-04-08] MEDS ORDERED: ZOFRAN 4 MG/2 ML IVP PRN (15:27)
[2023-04-08] MEDS ORDERED: TYLENOL PO PRN (15:27)
[2023-04-08] MEDS ORDERED: LACTATED RINGERS 1,000 ML IV ONE (15:27)
[2023-04-08 16:06] VITALS: BMI 45.6
[2023-04-08] MEDS: HUMALOG SUBCUT PRN ×2 (16:56→21:09)
[2023-04-08] MEDS ORDERED: ULTRAM PO PRN (17:24)
[2023-04-08] MEDS ORDERED: VENTOLIN HFA IH PRN (17:24)
[2023-04-08] MEDS ORDERED: LIPITOR PO SCH (21:00)
[2023-04-08] MEDS ORDERED: SYMBICORT 80-4.5 MCG INHALER IH SCH (21:00)
[2023-04-08] MEDS: LANTUS SUBCUT SCH (21:02)
[2023-04-09 05:25] LABS: BASOPHILS % (AUTO) 0.3 % (0.0-3.0); EOSINOPHILS # (AUTO) 0.3 K/ul (0.0-0.7); EOSINOPHILS % (AUTO) 3.2 % (0.0-7.0); HEMATOCRIT 43.8 % (42.0-52.0); HEMOGLOBIN 13.8 g/dl (14.0-18.0); IMMATURE GRANULOCYTE % (AUTO) 0.5 % (0.0-5.0); LYMPHOCYTES # (AUTO) 1.9 K/uL (0.60-3.4); LYMPHOCYTES % (AUTO) 22.1 (10.0-50.0); MEAN CORPUSCULAR HEMOGLOBIN 30.1 pg (27.0-31.0); MEAN CORPUSCULAR HGB CONC 31.5 (31.8-35.4); MEAN CORPUSCULAR VOLUME 95.6 fl (80.0-94.0); MONOCYTES % (AUTO) 11.5 (0-10); NEUTROPHILS # (AUTO) 5.4 K/ul (2.0-6.9); NEUTROPHILS % (AUTO) 62.4 % (42.2-75.2); PLATELET COUNT 206 10^3/uL (140-440); RED BLOOD COUNT 4.58 10^6/ul (4.70-6.10)
[2023-04-09 05:40] LABS: ALBUMIN 3.74 g/dL (3.5-5.0); ALKALINE PHOSPHATASE 70.7 U/L (56-119); BILIRUBIN,TOTAL 0.63 mg/dL (0.2-1.3); BLOOD UREA NITROGEN 51.4 mg/dL (9-20); CALCIUM 8.48 mg/dL (8.4-10.2); CARBON DIOXIDE 30.7 mmol/L (22-30.0); CHLORIDE 100.4 mmol/L (98-107); CREATININE 2.03 mg/dL (0.60-1.10); GLUCOSE 89.1 mg/dL (74-106); SODIUM 136.5 mmol/L (134.5-145); TOTAL PROTEIN 7.38 g/dL (6.3-8.2)
[2023-04-09 06:15] LABS: POTASSIUM 3.52 mmol/L (3.5-5.1)
[2023-04-09] MEDS ORDERED: SYMBICORT 80-4.5 MCG INHALER IH SCH (09:00)
[2023-04-09] MEDS ORDERED: PROTONIX PO SCH (09:00)
[2023-04-09] MEDS ORDERED: NON-FORMULARY MEDICATION (Dapagliflozin Propanediol [Farxiga] 10 mg tablet) PO SCH (09:00)
[2023-04-09] MEDS ORDERED: FLOMAX PO SCH (09:00)
[2023-04-09] MEDS: LANTUS SUBCUT SCH (09:02)
[2023-04-09 09:55] VITALS: BP 101/57; PULSE 91; RESP 24; TEMP 97
--- NOTE | 2023-04-09 10:30 | DCSUM ---
Admission Date Admission Date: 04/08/23 Discharge Date Discharge Date: 04/09/23 Admission Diagnosis Admission Diagnosis: 1. Hyperglycemia, symptomatic 2. PAUL, stage I 3. Hypotension 4. Weakness Discharge Diagnosis Discharge Diagnosis: 1. Hyperglycemia, symptomatic - improved 2. PAUL, stage I - resolved 3. Hypotension - improved 4. Weakness - PT/OT 5. DMT2, uncontrolled 6. BPH 7. GERD 8. Hyperlipidemia Hospital Provider Hospital Provider: SANDRITA GODFREY [place]-C, [facility] [place] [facility] [place] Primary Care Physician: DUKE STROUD Summary of History and Physical Summary of History and Physical: Patient is a 77 year old male with pmhx of DMT2, renal failure, hyperlipdemia, COPD with chronic respiratory failure, polycystic kidney disease, BPH, GERD who presented to the ER with frequent falls, feeling jittery, having difficulty holding onto things with his hands, and his legs "giving out on him." No unil ateral weakness. This has been ongoing for past few weeks. Although he is a poor historian and timeline seems questionable when talking about recent events. He states he's had about 4 falls in past week but unable to provide specific details. He and his state he broke his right foot 2 weeks ago, when it was last December. Pt seems unclear on his insulin dosing and whether or not he does mealtime insulin. He states he wears a mask at night for bedtime but states he does not have a cpap, he never followed up for a sleep study. He then is unable to tell me how much oxygen, if any, he wears at home. Later states he wears oxygen prn but tends to wear it most of the time. Pt was found in the ER to have glucose >500, A1c >14, and Cr bumped to 2.6, baseline 1.9-2.0. Patient ct head negative for acute findings. He was given a liter of fluids while in ER. Hospital Course Subjective: Patient's creatinine returned to baseline. Glucose improved. Discussed with him that we have only transiently improved his glucose, however with his A1c > 14 it will go up until other changes occur. Discussed diet, need for summer law associate consult. Referral made. I have concerns about adding mealtime insulin due to him and his being very lost regarding his medical care. There would be a high risk of error. He states he tolerates the ozempic well and is only on 0.5 mg. Will increase to 1 mg weekly and recommend titrating up as long as he tolerates it. He and his are agreeable to this. Advised to log his sugars and take with him to his PCP. Discussed the risks of allowing glucose to be 500 at baseline and how it is affecting his heart and kidneys. BP has remained on low end of normal. Orthostats negative. We have held his antihypertensives. Suspect hypotension could be contributing to his falls. Stopped amlodipine, decreased dose of his hyzaar and coreg. Monitor at home. Home health set up. Discussed trying to reschedule his sleep study he missed, as he likely has GABI. Recommend f/u outpatient. Patient felt to be at his baseline and will be discharged to home with his . Appearance: Pleasant, No Apparent Distress and Alert HEENT: MMM CVS: No Murmur Abdomen: Soft, Non-Tender and No Distention Respiratory: No Accessory Muscle Use Vital Signs: Most Recent Vital Signs Temperature 97.0 F L 04/09/23 09:54 Temperature Source Temporal Artery Scan 04/09/23 09:54 Temperature Source Infrared 04/08/23 13:05 Pulse Rate 91 04/09/23 09:54 Respiratory Rate 24 H 04/09/23 09:54 Blood Pressure 101/57 L 04/09/23 09:54 Blood Pressure Mean 71 04/09/23 09:54 Blood Pressure Left Arm 82/58 04/08/23 15:41 Blood Pressure Location Left Arm 04/09/23 09:54 Blood Pressure Position Sitting 04/09/23 09:54 O2 Sat by Pulse Oximetry 93 L 04/09/23 09:54 Oxygen Delivery Method Nasal Cannula 04/09/23 09:54 Oxygen Flow Rate 2 04/09/23 08:00 Height 5 ft 9 in 04/08/23 15:41 Weight 309 lb 04/08/23 15:41 Telemetry Type Remote Telemetry 04/09/23 07:00 Telemetry Monitoring Continues 04/09/23 07:00 Telemetry Heart Rate 85 04/09/23 07:00 Telemetry SPO2 92 L 04/09/23 07:00 EKG HI Interval 0.14 04/09/23 07:00 EKG QRS Interval 0.12 H 04/09/23 07:00 Telemetry Strip Reading SR with BBB 04/09/23 07:00 Imaging: EXAMINATION: HEAD CT WITHOUT CONTRAST HISTORY: Extremity weakness. TECHNIQUE: Noncontrast CT of the brain was performed with images acquired from skull base to vertex. Contrast Dose: None CT Dose Reduction Techniques Performed: Yes COMPARISON: CT head 10/30/2018 FINDINGS: Topogram demonstrates no significant abnormality. Intraparenchymal hemorrhage: None. Parenchyma: Normal waggoner-white differentiation. No mass effect or midline shift. Extra-axial spaces and Basal cisterns: Normal. Chronic: Mild periventricular white matter hypodensities which are nonspecific, however likely due to chronic microvascular ischemia. Mild to moderate cortical volume loss. Atherosclerotic calcification of the bilateral carotid siphons and intracranial vertebral arteries. Ventricles: Concordant with the degree of parenchymal volume loss. Paranasal sinuses and mastoid air cells: Paranasal sinuses are clear. Mastoid air cells are clear. Orbits: Normal visualized portions. Sella/Skull Base: Normal. Other: Scalp and visualized soft tissues are normal. Calvarium is normal. IMPRESSION: No acute intracranial abnormality. If high clinical suspicion for infarct, MRI could be performed for further evaluation. Lab Results Last 24 Hours: 04/09/23 04/08/23 04/08/23 05:04 14:35 14:22 WBC 8.70 RBC 4.58 L Hgb 13.8 L Hct 43.8 MCV 95.6 H MCH 30.1 MCHC 31.5 L RDW Coeff of Krissy 13.0 Plt Count 206 Immature Gran % (Auto) 0.5 Neut % (Auto) 62.4 Lymph % (Auto) 22.1 Edwards % (Auto) 11.5 H Eos % (Auto) 3.2 Baso % (Auto) 0.3 Neut # (Auto) 5.4 Lymph # (Auto) 1.9 [place] # (Auto) 1.0 Eos # (Auto) 0.3 Baso # (Auto) 0.0 Immature Gran # (Auto) 0.0 PT INR APTT Puncture Site [place] Base Excess 3.5 H O2 Saturation 83.8 L ABG pH 7.39 ABG pCO2 47.0 H ABG pO2 49.0 L* ABG HCO3 28.5 H ABG Total CO2 29.9 H Julian Test Pos Hemoglobin 0.9 Oxyhemoglobin 82.3 L Carboxyhemoglobin 1.7 H Total Hemoglobin 14.0 FiO2 % 21.0 Sodium 136.5 Potassium 3.52 Chloride 100.4 Carbon Dioxide 30.7 H Anion Gap 8.92 BUN 51.4 H Creatinine 2.03 H D Estimated GFR (MDRD) 32.00 BUN/Creatinine Ratio 25.32 Glucose 89.1 D Hemoglobin A1c Calcium 8.48 Total Bilirubin 0.63 AST 21.0 ALT 16.0 Alkaline Phosphatase 70.7 Total Protein 7.38 Albumin 3.74 Globulin 3.64 Albumin/Globulin Ratio 1.02 SARS CoV-2 RNA Rapid SALTY Negative 04/08/23 04/08/23 14:00 13:33 WBC 9.35 RBC 4.40 L Hgb 13.4 L Hct 42.6 MCV 96.8 H MCH 30.5 MCHC 31.5 L RDW Coeff of Krissy 13.1 Plt Count 216 Immature Gran % (Auto) 0.6 Neut % (Auto) 64.4 Lymph % (Auto) 20.9 Edwards % (Auto) 11.8 H Eos % (Auto) 2.0 Baso % (Auto) 0.3 Neut # (Auto) 6.0 Lymph # (Auto) 2.0 Edwards # (Auto) 1.1 Eos # (Auto) 0.2 Baso # (Auto) 0.0 Immature Gran # (Auto) 0.1 PT 11.6 H INR 1.13 APTT 25.8 Puncture Site Base Excess O2 Saturation ABG pH ABG pCO2 ABG pO2 ABG HCO3 ABG Total CO2 Julian Test Hemoglobin Oxyhemoglobin Carboxyhemoglobin Total Hemoglobin FiO2 % Sodium 131.0 L Potassium 4.10 Chloride 92.7 L Carbon Dioxide 27.3 Anion Gap 15.10 BUN 52.8 H Creatinine 2.66 H Estimated GFR (MDRD) 24.00 BUN/Creatinine Ratio 19.84 Glucose 577.5 H* Hemoglobin A1c > 14.00 H Calcium 8.08 L Total Bilirubin 0.54 AST 19.6 ALT 18.2 Alkaline Phosphatase 71.5 Total Protein 7.19 Albumin 3.63 Globulin 3.56 Albumin/Globulin Ratio 1.01 SARS CoV-2 RNA Rapid SALTY Discharge Instructions Discharge Planning: Discharge Planning > [address] Elena Melendez. Discharge Medications: Medications at Discharge (Home Meds & RX) albuterol sulfate 90 mcg/actuation aerosol inhaler (Ventolin HFA) 2 puff inhalation Q4H PRN Shortness Of Breath 10/31/21 insulin glargine 100 unit/mL subcutaneous solution (Lantus U-100 Insulin) 60 unit (0.6 mL) subcut BID #40 mL 08/06/22 lancets 30 gauge (Sure Comfort Lancets) #100 ea 08/08/22 insulin syringe-needle U-100 1 mL 31 gauge x 5/16" (BD Insulin Syringe Ultra- Fine) #100 packets 09/03/22 blood sugar diagnostic (Contour Next Test Strips) #100 ea 09/06/22 atorvastatin 40 mg tablet See Rx Instructions .Route .COMPLEX #30 tabs 10/07/22 amlodipine 10 mg tablet See Rx Instructions .Route .COMPLEX #30 tabs 11/25/22 bumetanide 0.5 mg tablet 0.5 mg PO BID 04/08/23 calcitriol 0.25 mcg capsule 0.25 mcg PO .COMPLEX 04/08/23 carvedilol 12.5 mg tablet 12.5 mg PO BID 04/08/23 dapagliflozin propanediol 10 mg tablet (Farxiga) 10 mg PO DAILY 04/08/23 ergocalciferol (vitamin D2) 1,250 mcg (50,000 unit) capsule (Vitamin D2) 50,000 unit PO WEEKLY 04/08/23 fluticasone furoate 100 mcg-vilanterol 25 mcg/dose inhalation powder (Breo Ellipta) 1 inh inhalation DAILY 04/08/23 losartan 100 mg-hydrochlorothiazide 12.5 mg tablet 1 tab PO DAILY 04/08/23 pantoprazole 40 mg tablet,delayed release (Protonix) 40 mg PO DAILY 04/08/23 semaglutide 0.25 mg or 0.5 mg (2 mg/1.5 mL) subcutaneous pen injector 0.5 mg subcut QWEEK E11.9 DMII 04/08/23 tamsulosin 0.4 mg capsule 0.4 mg PO DAILY 04/08/23 tramadol 50 mg tablet 50 mg PO Q8H PRN pain 04/08/23 Discharge Plan Discharge Discharge Orders: Discharge Patient (ONCE); Ordered 04/09/23 Ordered By: SANDRITA GODFREY Activity Restrictions/Additional Instructions: DISCHARGE TO HOME START INCREASED DOSE OF OZEMPIC TOMORROW CHECK SUGARS MORNING AND NIGHT, TAKE RESULTS TO PCP FALL PRECAUTIONS DX: HYPERGLYCEMIA, PAUL RECOMMEND OUTPATIENT DIETITIAN CONSULT AND SLEEP STUDY PLEASE NOTE THE CHANGES IN YOUR BLOOD PRESSURE MEDICATIONS HOME HEALTH [facility] WITH [facility]. IF YOU NEED TO CONTACT THEM, THEIR NUMBER IS [phone]. [facility]ST[facility] BROUGHT YOU A NEW WHEELCHAIR TO THE HOSPITAL. Instructions: Diabetic Hyperglycemia (GEN), Type 2 Diabetes Management for Adults (GEN) Care Plan Goals: Problem: Altered Blood Glucose Level Goal: Maintain blood glucose level Within Normal Limits Instructions: Diet as ordered Diet consult if indicated Monitor accucheck levels Monitor signs/symptoms of altered glucose Patient Disposition: HOME WITH FAMILY CARE Prescriptions: New Ozempic 1 mg/dose (4 mg/3 mL) pen injector 1 mg subcut WEEKLY Qty: 3 0RF Rx Instructions: THURSDAYS carvedilol [Coreg] 6.25 mg tablet 6.25 mg PO BID Qty: 60 0RF Rx Instructions: must administer with a meal/food losartan-hydrochlorothiazide 50-12.5 mg tablet 1 tab PO DAILY Qty: 30 0RF Continued insulin glargine [Lantus U-100 Insulin] 100 unit/mL solution 60 unit subcut BID Qty: 40 5RF atorvastatin 40 mg tablet See Rx Instructions .ROUTE .COMPLEX Qty: 30 2RF Dose Instruction: TAKE 1 TABLET (40 MG TOTAL) BY MOUTH NIGHTLY AT BEDTIME. Rx Instructions: TAKE 1 TABLET (40 MG TOTAL) BY MOUTH NIGHTLY AT BEDTIME. albuterol sulfate [Ventolin HFA] 90 mcg/actuation HFA aerosol inhaler 2 puff INHALATION Q4H PRN (Reason: Shortness Of Breath) Farxiga 10 mg tablet 10 mg PO DAILY tramadol 50 mg tablet 50 mg PO Q8H PRN (Reason: pain) fluticasone furoate-vilanterol [Breo Ellipta] 100-25 mcg/dose blister with dev ice 1 inh inhalation DAILY ergocalciferol (vitamin D2) [Vitamin D2] 1,250 mcg (50,000 unit) capsule 50,000 unit PO WEEKLY calcitriol 0.25 mcg capsule 0.25 mcg PO .COMPLEX Rx Instructions: take 1 capsule po three times a week tamsulosin 0.4 mg capsule 0.4 mg PO DAILY pantoprazole [Protonix] 40 mg tablet,delayed release (DR/EC) 40 mg PO DAILY bumetanide 0.5 mg tablet 0.5 mg PO BID Rx Instructions: TAKE 1 TABLET TWICE DAILY AND AT LUNCH. Discontinued amlodipine 10 mg tablet See Rx Instructions .ROUTE .COMPLEX Qty: 30 0RF Dose Instruction: TAKE 1 TABLET BY MOUTH DAILY Rx Instructions: TAKE 1 TABLET BY MOUTH DAILY carvedilol 12.5 mg tablet 12.5 mg PO BID losartan-hydrochlorothiazide 100-12.5 mg tablet 1 tab PO DAILY Rx Instructions: TAKE ONE TABLET DAILY GENERIC FOR HYZAAR semaglutide 0.25 mg or 0.5 mg(2 mg/1.5 mL) pen injector 0.5 mg subcut QWEEK Rx Instructions: Weekly on No Action (DME) lancets [Sure Comfort Lancets] 30 gauge misc See Rx Instructions .ROUTE .COMPLEX Qty: 100 5RF Dose Instruction: TEST THREE TIMES DAILY Rx Instructions: TEST THREE TIMES DAILY E11.9 DM2 (DME) insulin syringe-needle U-100 [BD Insulin Syringe Ultra-Fine] 1 mL 31 gauge x 5/16 syringe See Rx Instructions .ROUTE .COMPLEX Qty: 100 5RF Dose Instruction: USE DIRECTED WITH LANTUS TWICE DAILY Rx Instructions: USE DIRECTED WITH LANTUS TWICE DAILY (DME) Contour Next Test Strips Strip See Rx Instructions .ROUTE .COMPLEX Qty: 100 5RF Dose Instruction: TEST THREE TIMES DAILY Rx Instructions: TEST THREE TIMES DAILY Did you review [place] T[place] ONE READING TEACHER for ALL controlled substances?: Not Applicable Discussed opioids are addictive and Narcan is available by prescription or from pharmacy.: No Condition: Stable Referrals: DUKE STROUD [Primary Care Provider] - 04/17/23 9:30 am
== END 2023-04-09 11:30 | disposition home or self-care (01) ==
LOC: ED 12:59 → MEDSURG B 12:59
PROVIDERS: ADMIT Hospitalist; ATTEND Physician Assistant
DX: E11.65 Type 2 diabetes mellitus with hyperglycemia; Z79.899 Other long term (current) drug therapy; E78.5 Hyperlipidemia, unspecified; N40.0 Benign prostatic hyperplasia without lower urinary tract symptoms; R29.6 Repeated falls; Z20.822 Contact with and (suspected) exposure to COVID-19; Z51.81 Encounter for therapeutic drug level monitoring; M62.81 Muscle weakness (generalized); I95.9 Hypotension, unspecified; K21.9 Gastro-esophageal reflux disease without esophagitis; Z79.4 Long term (current) use of insulin; N17.9 Acute kidney failure, unspecified

== ENCOUNTER 2023-05-12 13:37 | Inpatient (IN) ==
--- NOTE | 2023-05-12 14:06 | ED.PDOC ---
General ED Provider: Dr. CADY GONZALEZ MD Chief Complaint: Fall Stated Complaint: Patient with history of chronic renal failure, type 2 diabetes, COPD, sleep apnea, congestive heart failure patient states he fell bed this morning and rolled on the floor he also states he fell out of a chair later today denies associated head neck or back injury. Patient states he has had increasing weakness over the past month And is wheelchair-bound has had home physical therapy which is assisting him ambulating using a walker. Patient now complains of generalized weakness was found to have a very low blood sugar this morning with EMS. Patient denies fever, chills, chest pain, nausea, vomiting. Time Seen by Provider: 05/12/23 13:50 Mode of Arrival: Ambulance Information Source: Patient and EMT Primary Care Provider: DUKE STROUD Nursing and Triage Documentation Reviewed and Agree: Yes What is Opioid Naive?: *Opioid Naive implies the patient is not already taking opioids or not chronically receiving opioids on a daily basis. *PRN dosing is not "usually" associated with tolerance. *Patients are at higher risk of over-sedation and aspiration. What is Opioid Tolerant?: *Opioid Tolerance implies less than the expected response to an opioid. *Acquired tolerance is defined by the patient taking 60mg of oral morphine daily (or equianalgesic dose of another opioid) for 1 week or more. *Often associated with chronic pain. *May take more than usual dose to achieve desired pain control. Review of Systems Review Of Systems Constitutional: Reports No symptoms [facility] Medical History Right knee pain M25.561 - Pain in right knee (ICD-10) History of smoking quit 05/2021 Z87.891 - Personal history of nicotine dependence (ICD-10) Hypertension I10 - Essential (primary) hypertension (ICD-10) Hyperlipidemia for years E78.5 - Hyperlipidemia, unspecified (ICD-10) Atherosclerosis of coronary artery for a few years I25.10 - Atherosclerotic heart disease of [place] coronary artery without angina pectoris (ICD-10) Diabetes mellitus for years E11.9 - Type 2 diabetes mellitus without complications (ICD-10) Family History Mother No problems noted. FATHER Cerebrovascular accident BROTHER Diabetes Social History Smoking and tobacco status: Former smoker Alcohol intake: former Substance use type: does not use Water heater temperature set < 120 degrees: Yes Working smoke detector in home: Yes Fire extinguisher in home: Yes Carbon monoxide detector in home: Yes Surgical History H/O shoulder surgery left Z98.89 - Other specified postprocedural states (ICD-10) H/O kidney removal Z90.5 - Acquired absence of kidney (ICD-10) History of musculoskeletal system surgery Rotator cuff repair left shoulder Z98.890 - Other specified postprocedural states (ICD-10) Kidney excision left kidney removed 1 years ago Physical Exam Physical Exam Appearance: Reports Well-appearing Respiratory: Reports Airway patent and Breath sounds clear Cardiovascular: Reports RRR and Pulses normal Musculoskeletal: Reports Normal strength and ROM intact Critical Care Note Critical Care Note Total Critical Care Time (mins): 0 Course Course 05/12/23 14:16 05/12/23 14:16 Orders, Labs, Meds: Lab Review 05/12/23 05/12/23 14:12 14:16 WBC 10.27 H RBC 5.10 Hgb 15.4 Hct 49.3 MCV 96.7 H MCH 30.2 MCHC 31.2 L RDW Coeff of Krissy 13.3 Plt Count 246 Immature Gran % (Auto) 0.3 Neut % (Auto) 72.7 Lymph % (Auto) 17.4 [place] % (Auto) 8.4 Eos % (Auto) 0.9 Baso % (Auto) 0.3 Neut # (Auto) 7.5 H Lymph # (Auto) 1.8 [place] # (Auto) 0.9 Eos # (Auto) 0.1 Baso # (Auto) 0.0 Immature Gran # (Auto) 0.0 Sodium 139.3 Potassium 5.28 H Chloride 110.0 H Carbon Dioxide 26.6 Anion Gap 7.98 BUN 21.7 H Creatinine 1.36 H Estimated GFR (MDRD) 51.00 BUN/Creatinine Ratio 15.95 Glucose 122.4 H Calcium 9.26 Magnesium 2.15 Total Bilirubin 0.57 AST 21.0 ALT 19.5 Alkaline Phosphatase 64.9 Troponin I < 0.012 NT-Pro-B Natriuret Pep 260 Total Protein 6.91 Albumin 3.92 Globulin 2.99 Albumin/Globulin Ratio 1.31 SARS CoV-2 RNA Rapid SALTY Negative Orders Category Date Time Status EKG-(ED ONLY) Stat CARDIO 05/12/23 14:08 Completed Collar Turner [ED IMPREGNATOR AND DRIER APPLIED] .ONCE EMERGENCY 05/12/23 14:08 Active Saline Lock [ED IV/MEDIPORT/POWERPORT] .ONCE EMERGENCY 05/12/23 14:08 Active CBC W/ AUTO DIFF Stat LAB 05/12/23 14:16 Completed CMP [COMPREHENSIVE METABOLIC PANEL] Stat LAB 05/12/23 14:16 Completed COVID [SARS COV-2 RNA RAPID SALTY] Stat LAB 05/12/23 14:12 Completed MAGNESIUM Stat LAB 05/12/23 14:16 Completed NT-PROBNP(ED) Stat LAB 05/12/23 14:16 Completed TROPONIN I Stat LAB 05/12/23 14:16 Completed 0.9 % Sodium Chloride [Saline Flush] Meds 05/12/23 14:08 Active 1 syr IVF PRN PRN Sodium Chloride 0.9% [Sodium Chloride] 500 ml Meds 05/12/23 16:23 Active IV BOLUS CHEST, 1V AP ONLY Stat RADS 05/12/23 14:[address] HEAD W/O CONTRAST Stat RADS 05/12/23 14:[address] LUMBAR SPINE W/O CONTRAST Stat RADS 05/12/23 14:06 Completed Medications Generic Name Dose Route Start Last Admin Trade Name Freq PRN Reason Stop Dose Admin Sodium Chloride 500 mls @ 500 mls/hr 05/12/23 16:23 Sodium Chloride IV 05/12/23 17:22 BOLUS ONE Sodium Chloride 1 syr 05/12/23 14:08 0.9% Sodium Chloride 10 Ml Disp.Syrin IVF PRN PRN To flush IV Vital Signs: Temp Pulse Resp BP Pulse Ox 05/12/23 13:39 97.1 F L 110 H 16 172/84 H 91 L Physician Progress Note: History obtained from the spouse as well as the patient was a history of type 2 diabetes, hypertension, COPD, morbid obesity, previous left nephrectomy for renal cell carcinoma. Patient states over the past month he has been wheelchair due to generalized weakness. Patient has been evaluated per physical therapy has been ambulating with walker assistance about 2 weeks ago. Patient states he rolled out of bed this morning denies injury states while sitting in the chair he fell out of a chair. Patient denies head injury loss of conscious nausea vomiting neck pain or back pain. Patient has home oxygen dependent. 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 Chest x-ray interpretation by the radiologist shows no acute cardiopulmonary process. The head CT scan without intravenous contrast interpretation by the radiologist shows no acute intracranial abnormality. The lumbar CT scan without intravenous contrast interpretation by the radiologist consistent with diffuse osteophytes from the L1-L2, L2-L3, L3-L4, L4-5, L5-S1, there is no evidence of fracture or subluxation. All laboratory data reviewed from the normal limits troponin 0.012, BNP is normal send potassium 5.2, GFR 51, CBC is within normal limits. Spouse states that patient has very poor oral intake patient ministered normal saline at 500 mL bolus 1 hour [] Differential diagnosis: 1) frequent falls 2) generalized weakness Discussed with hospitalist Mckinley at 1624 observation discussed with the patient and spouse in detail they are not wanting a mcfp placement or swing bed placement stating that there he has scheduled physical therapy At home Discharge Plan Discharge Patient Disposition: PLACED OBSERVATION Discharge Problem: Generalized muscle weakness, Frequent falls Did you review [place] ASSOCIATE DIRECTOR DATA [employer] ANALYTICS for ALL controlled substances?: Not Applicable ED Provider: CADY GONZALEZ Condition: Stable [place] Coma Scale [place] Coma Scale Response Scores: Best Response = 15 Comatose Client = 8 or Less Totally Unresponsive = 3
[2023-05-12 14:21] LABS: BASOPHILS % (AUTO) 0.3 % (0.0-3.0); EOSINOPHILS # (AUTO) 0.1 K/ul (0.0-0.7); EOSINOPHILS % (AUTO) 0.9 % (0.0-7.0); HEMATOCRIT 49.3 % (42.0-52.0); HEMOGLOBIN 15.4 g/dl (14.0-18.0); IMMATURE GRANULOCYTE % (AUTO) 0.3 % (0.0-5.0); LYMPHOCYTES # (AUTO) 1.8 K/uL (0.60-3.4); LYMPHOCYTES % (AUTO) 17.4 (10.0-50.0); MEAN CORPUSCULAR HEMOGLOBIN 30.2 pg (27.0-31.0); MEAN CORPUSCULAR HGB CONC 31.2 (31.8-35.4); MEAN CORPUSCULAR VOLUME 96.7 fl (80.0-94.0); MONOCYTES # (AUTO) 0.9 K/uL (0.4-2.0); MONOCYTES % (AUTO) 8.4 (0-10); NEUTROPHILS # (AUTO) 7.5 K/ul (2.0-6.9); NEUTROPHILS % (AUTO) 72.7 % (42.2-75.2); PLATELET COUNT 246 10^3/uL (140-440); RDW COEFFICIENT OF VARIATION 13.3 % (11.6-14.8); WHITE BLOOD COUNT 10.27 K/ul (4.2-10.2)
[2023-05-12 14:34] LABS: SARS COV-2 RNA RAPID NAAT NEGATIVE (NEGATIVE)
[2023-05-12 14:40] LABS: ALANINE AMINOTRANSFERASE 19.5 U/L (0-50); ALBUMIN 3.92 g/dL (3.5-5.0); ALKALINE PHOSPHATASE 64.9 U/L (56-119); BILIRUBIN,TOTAL 0.57 mg/dL (0.2-1.3); BLOOD UREA NITROGEN 21.7 mg/dL (9-20); CALCIUM 9.26 mg/dL (8.4-10.2); CARBON DIOXIDE 26.6 mmol/L (22-30.0); CREATININE 1.36 mg/dL (0.60-1.10); GLUCOSE 122.4 mg/dL (74-106); MAGNESIUM 2.15 mg/dL (1.6-2.3); POTASSIUM 5.28 mmol/L (3.5-5.1); SODIUM 139.3 mmol/L (134.5-145); TOTAL PROTEIN 6.91 g/dL (6.3-8.2)
[2023-05-12 14:53] LABS: TROPONIN I < 0.012 ng/ml (0.0000-0.120)
--- NOTE | 2023-05-12 14:56 | CT ---
EXAM: CT HEAD WITHOUT CONTRAST. HISTORY: Head trauma, fall. COMPARISON: 04/23/2023. TECHNIQUE: Multiple axial images of the brain were obtained from the skull base through the vertex w ithout intravenous contrast. Multiplanar reformats were provided. FINDINGS: There is no intracranial hemorrhage or extraaxial collection. The waggoner-white differentiat ion is maintained without evidence for acute large vascular territory infarction. There are areas of periventricular and subcortical white matter low attenuation. The cortical sulci and cerebral ventr icles are symmetrically enlarged. The basal cisterns are well visualized. There is no hydrocephalus , mass effect, or midline shift. The paranasal sinuses and mastoid air cells are clear. The calvari um is intact. Since the prior study, there has been no significant interval change. IMPRESSION: 1. No acute intracranial abnormality. 2. Chronic small vessel ischemic changes and atrophy. All CT scans are performed using dose optimization techniques as appropriate to the performed exam an d include at least one of the following: Automated exposure control, adjustment of the mA and/or kV according t o size, and the use of iterative reconstruction technique.
--- NOTE | 2023-05-12 14:59 | DI ---
EXAM: CHEST ONE-VIEW HISTORY: Cough dyspnea COMPARISON: 04/23/2023 FINDINGS: AP upright view of the chest obtained. Chronic changes noted in the pulmonary parenchyma. Cardiac silhouette is normal. Pleural surfaces are unremarkable. IMPRESSION: Chronic obstructive pulmonary disease with chronic change and no acute cardiopulmonary p rocess
--- NOTE | 2023-05-12 15:06 | CT ---
EXAM: CT LUMBAR SPINE WITHOUT CONTRAST. HISTORY: Lower extremity weakness. COMPARISON: Abdominal CT 03/07/2021. TECHNIQUE: Multiple axial images of the lumbar spine were obtained without intravenous contrast. Im ages were reformatted in the sagittal and coronal planes. FINDINGS: There is mild left convex curvature centered near the thoracolumbar junction. Otherwise, the normal curvature and alignment are maintained. Vertebral body and intervertebral disc heights ar e normal. No fracture or subluxation is seen. T12-L1: No neural compromise. L1-2: Disc osteophyte formation and facet arthropathy with mild neural foraminal narrowing and becca ening of the ventral thecal sac. L2-3: Disc osteophyte formation and facet arthropathy with flattening of the ventral thecal sac and moderate neural foraminal narrowing. L3-4: Disc osteophyte formation, facet arthropathy thickening of ligamentum flavum with mild central canal stenosis and mild right and moderate left neural foraminal narrowing. L4-5: Disc osteophyte formation, facet arthropathy thickening of ligamentum flavum with mild moderat e central canal stenosis and moderate right and severe left neural foraminal narrowing. L5-S1: Disc osteophyte formation and facet arthropathy with moderate neural foraminal narrowing. Paravertebral soft tissues demonstrate no acute abnormality. Atherosclerotic calcifications present without aneurysm. IMPRESSION: 1. No acute abnormality of the lumbar spine. 2. Degenerative changes as described. All CT scans are performed using dose optimization techniques as appropriate to the performed exam an d include at least one of the following: Automated exposure control, adjustment of the mA and/or kV according t o size, and the use of iterative reconstruction technique.
[2023-05-12 17:02] VITALS: BMI 46.5
--- NOTE | 2023-05-12 17:03 | PCM ---
Date of Service Date Seen by Provider: 05/12/23 Time Seen by Provider: 14:45 Admit Day/Time Admission Date: 05/12/23 Admission Time: 14:45 Reason for Admission Chief Complaint: GENERALIZED WEAKNESS; [facility] Provider Hospital Provider: CARLA FERRER, [facility] [place] Primary Care Physician Primary Care Physician: DUKE STROUD History of Present Illness History of Present Illness: 77 yo male presented to the ER with weakness and fall from home. Today, patient slid out of chair into the floor and called for lift assist. Patient was found to be hypoglycemic and brought into the ER. states that he has not been able to walk well over the past couple months. Recently, he was setup with home health PT/OT but they have only been in the home to do the evaluation. Patient states he was told he has arthritis all over that is the cause of his pain and difficulty walking. Patient refuses prison placement at this time, but would like to discuss other options if possible. Denies any fever, chills, sob, chest pain, n/v/d. Case Discussed With Case Discussed With: Patient's case was discussed with the ER Physicians, Dr. Chowdary. [facility] Medical History Right knee pain M25.561 - Pain in right knee (ICD-10) History of smoking quit 05/2021 Z87.891 - Personal history of nicotine dependence (ICD-10) Hypertension I10 - Essential (primary) hypertension (ICD-10) Hyperlipidemia for years E78.5 - Hyperlipidemia, unspecified (ICD-10) Atherosclerosis of coronary artery for a few years I25.10 - Atherosclerotic heart disease of [place] coronary artery without angina pectoris (ICD-10) Diabetes mellitus for years E11.9 - Type 2 diabetes mellitus without complications (ICD-10) Surgical History H/O shoulder surgery left Z98.89 - Other specified postprocedural states (ICD-10) H/O kidney removal Z90.5 - Acquired absence of kidney (ICD-10) History of musculoskeletal system surgery Rotator cuff repair left shoulder Z98.890 - Other specified postprocedural states (ICD-10) Kidney excision left kidney removed 1 years ago Family History Mother No problems noted. FATHER Cerebrovascular accident BROTHER Diabetes Social History Smoking and tobacco status: Former smoker Alcohol intake: former Substance use type: does not use Water heater temperature set < 120 degrees: Yes Working smoke detector in home: Yes Fire extinguisher in home: Yes Carbon monoxide detector in home: Yes Allergies Allergies Allergy/AdvReac Type Severity Reaction Status Date / Time No Known Allergies Allergy Verified 05/12/23 13:46 Current Medications Home Medications albuterol sulfate 90 mcg/actuation aerosol inhaler (Ventolin HFA) 2 puff inhalation Q4H PRN Shortness Of Breath 10/31/21 [History Confirmed 05/12/23 Last Taken 10/30/21] lancets 30 gauge (Sure Comfort Lancets) #100 ea 08/08/22 [Rx Confirmed 05/12/23 Last Taken Unknown] insulin syringe-needle U-100 1 mL 31 gauge x 5/16" (BD Insulin Syringe Ultra- Fine) #100 packets 09/03/22 [Rx Confirmed 05/12/23 Last Taken Unknown] blood sugar diagnostic (Contour Next Test Strips) #100 ea 09/06/22 [Rx Confirmed 05/12/23 Last Taken Unknown] atorvastatin 40 mg tablet See Rx Instructions .Route .COMPLEX #30 tabs 10/07/22 [Rx Confirmed 05/12/23 Last Taken Unknown] bumetanide 0.5 mg tablet 0.5 mg PO BID 04/08/23 [History Confirmed 05/12/23 Last Taken Unknown] calcitriol 0.25 mcg capsule 0.25 mcg PO .COMPLEX 04/08/23 [History Confirmed 05/12/23 Last Taken Unknown] dapagliflozin propanediol 10 mg tablet (Farxiga) 10 mg PO DAILY 04/08/23 [History Confirmed 05/12/23 Last Taken Unknown] ergocalciferol (vitamin D2) 1,250 mcg (50,000 unit) capsule (Vitamin D2) 50,000 unit PO DAILY 04/08/23 [History Confirmed 05/12/23 Last Taken Unknown] fluticasone furoate 100 mcg-vilanterol 25 mcg/dose inhalation powder (Breo Ellipta) 1 inh inhalation DAILY 04/08/23 [History Confirmed 05/12/23 Last Taken Unknown] pantoprazole 40 mg tablet,delayed release (Protonix) 40 mg PO DAILY 04/08/23 [History Confirmed 05/12/23 Last Taken Unknown] tamsulosin 0.4 mg capsule 0.4 mg PO DAILY 04/08/23 [History Confirmed 05/12/23 Last Taken Unknown] tramadol 50 mg tablet 50 mg PO Q8H PRN pain 04/08/23 [History Confirmed 05/12/23 Last Taken Unknown] carvedilol 6.25 mg tablet (Coreg) 6.25 mg PO BID #60 tabs 04/09/23 [Rx Confirmed 05/12/23 Last Taken Unknown] losartan 50 mg-hydrochlorothiazide 12.5 mg tablet 1 tab PO DAILY #30 tabs 04/09/23 [Rx Confirmed 05/12/23 Last Taken Unknown] semaglutide 1 mg/dose (4 mg/3 mL) subcutaneous pen injector (Ozempic) 1 mg (0.75 mL) subcut WEEKLY DIABETIC #3 mL 04/09/23 [Rx Confirmed 05/12/23 Last Taken Unknown] erythromycin 5 mg/gram (0.5 %) eye ointment 1 applic BOTHEYES QID #3.5 grams 04/23/23 [Rx Confirmed 05/12/23 Last Taken Unknown] amlodipine 10 mg tablet 10 mg PO DAILY 04/30/23 [History Confirmed 05/12/23 Last Taken Unknown] erythromycin 5 mg/gram (0.5 %) eye ointment 1 applic RIGHTEYE QID 7 days #3.5 grams 04/30/23 [Rx Confirmed 05/12/23 Last Taken Unknown] polymyxin B sulfate 10,000 unit-trimethoprim 1 mg/mL eye drops 1 drp BOTHEYES DIRECTED 04/30/23 [History Confirmed 05/12/23 Last Taken Unknown] insulin glargine 100 unit/mL subcutaneous solution (Lantus U-100 Insulin) 100 unit subcut BID 05/12/23 [History Confirmed 05/12/23 Last Taken Unknown] Home Acetaminophen (Acetaminophen 325 Mg Tablet) 650 mg PO Q4H PRN PRN Reason: Mild Pain Albuterol Sulfate (Albuterol Sulfate 8 Gm Inhaler) 2 puff IH Q4H PRN PRN Reason: Wheezing Amlodipine Besylate (Amlodipine Besylate 5 Mg Tablet) 10 mg PO DAILY [facility] Atorvastatin Calcium (Atorvastatin Calcium 20 Mg Tablet) 0 mg PO .COMPLEX [facility]EBAN Bumetanide (Bumetanide 1 Mg Tablet) 0.5 mg PO BID [facility] Carvedilol (Carvedilol 6.25 Mg Tablet) 6.25 mg PO BID [facility] Enoxaparin Sodium (Enoxaparin Sodium 40 Mg/0.4 Ml Syr) 40 mg SUBCUT DAILY [facility] Ergocalciferol (Ergocalciferol (Vitamin D2) 50,000 Unit Capsule) 50,000 unit PO DAILY [facility] Erythromycin (Erythromycin 3.5 Gm Opth Oint) 1 applic RIGHTEYE QID [facility] Stop: 05/15/23 20:59 HCTZ/Losartan Potassium (Losartan/Hydrochlorothiazide 50/12.5 Mg Tab) 1 tab PO DAILY [facility] Insulin Glargine (Insulin Glargine,Hum.Rec.Anlog 100 Units/Ml) 60 unit SUBCUT BID [facility] Insulin Human Regular (Insulin Regular, Human 100 Unit/Ml (10ml) Vial) 0 unit SUBCUT PRN PRN; Protocol PRN Reason: Hyperglycemia Non-Formulary Medication (Polymyxin B Sulf-Trimethoprim) 1 drop OP DIRECTED [facility] Non-Formulary Medication (Dapagliflozin Propanediol [Farxiga]) 10 mg PO DAILY [facility] Non-Formulary Medication (Fluticasone Furoate-Vilanterol [Breo Ellipta]) 1 inh IH DAILY [facility] Non-Formulary Medication (Calcitriol) 0.25 mcg PO .COMPLEX [facility] Pantoprazole Sodium (Pantoprazole Sodium 40 Mg Tablet.Dr) 40 mg PO DAILY [facility] Sodium Chloride (0.9% Sodium Chloride 10 Ml Disp.Syrin) 1 syr IVF PRN PRN PRN Reason: To flush IV Tamsulosin HCl (Tamsulosin Hcl 0.4 Mg Cap.Er.24h) 0.4 mg PO DAILY [facility] Discontinued Medications Sodium Chloride (Sodium Chloride) 500 mls @ 500 mls/hr IV BOLUS ONE Stop: 05/12/23 17:22 Opioid Naive vs. Tolerant Does Patient Take Opioids?: No Is Patient Opioid Naive?: Yes What is Opioid Naive?: *Opioid Naive implies the patient is not already taking opioids or not chronically receiving opioids on a daily basis. *PRN dosing is not "usually" associated with tolerance. *Patients are at higher risk of over-sedation and aspiration. Is Patient Opioid Tolerant?: No What is Opioid Tolerant?: *Opioid Tolerance implies less than the expected response to an opioid. *Acquired tolerance is defined by the patient taking 60mg of oral morphine daily (or equianalgesic dose of another opioid) for 1 week or more. *Often associated with chronic pain. *May take more than usual dose to achieve desired pain control. Review of Systems Constitutional: Reports Weakness Head: Reports Normocephalic Eyes: Reports No symptoms Ears: Reports No symptoms Nose: Reports No symptoms Mouth: Reports No symptoms Throat: Reports No symptoms Cardiovascular: Reports No symptoms Respiratory: Reports No symptoms Gastrointestinal: Reports No symptoms Genitourinary: Reports No Symptoms Musculoskeletal: Reports Joint Stiffness Endocrine: Reports No symptoms Hematology: Reports No symptoms Immunology: Reports No symptoms Neurological: Reports No symptoms Psychiatric: Reports No symptoms Physical examination Most Recent Vital Signs: Most Recent Vital Signs Temperature 97 F L 05/12/23 16:51 Temperature Source Temporal Artery Scan 05/12/23 16:51 Temperature Source Infrared 05/12/23 13:39 Pulse Rate 99 05/12/23 16:51 Respiratory Rate 20 05/12/23 16:51 Blood Pressure 172/84 H 05/12/23 13:39 Blood Pressure Right Arm 182/113 05/12/23 16:51 Blood Pressure Position Sitting 05/12/23 16:51 O2 Sat by Pulse Oximetry 95 05/12/23 16:51 Oxygen Delivery Method Nasal Cannula 05/12/23 16:51 Oxygen Flow Rate 2 05/12/23 16:51 Height 5 ft 9 in 05/12/23 16:51 Weight 315 lb 05/12/23 16:51 Telemetry Heart Rate 85 04/09/23 07:00 Telemetry SPO2 92 L 04/09/23 07:00 Appearance: Positive No Apparent Distress, Alert and Oriented x3 and Obese Skin: Positive Warm, Good Turgor and Other (disheveled appearance) HEENT: Positive Normocephalic and Atraumatic Neck: Positive Supple and Midline Trachea Chest/Lungs: Positive Symmetrical With Equal Breath Sounds, Clear to Auscultation Bilaterally and Good Air Movement all 4 Lung [place] Heart: Positive RRR and Pulses Normal GI/: Positive Soft, Nontender, Bowel Sounds Normal, No Distention and Hernias Musculoskeletal: Positive Not Examined Extremities: Positive Edema (+1-2 pitting edema, R greater than left) and Intact Peripheral Pulses Neurological: Positive Sensation Intact, Motor intact, Reflexes Intact, Alert, Oriented and Other (generalized weakness) Psychiatric: Positive Oriented x4, Appropriate Mood, Appropriate Affect and Intact Memory Labs This Visit Labs This Visit: Labs This Visit 05/12/23 05/12/23 14:12 14:16 WBC 10.27 H RBC 5.10 Hgb 15.4 Hct 49.3 MCV 96.7 H MCH 30.2 MCHC 31.2 L RDW Coeff of Krissy 13.3 Plt Count 246 Immature Gran % (Auto) 0.3 Neut % (Auto) 72.7 Lymph % (Auto) 17.4 [place] % (Auto) 8.4 Eos % (Auto) 0.9 Baso % (Auto) 0.3 Neut # (Auto) 7.5 H Lymph # (Auto) 1.8 [place] # (Auto) 0.9 Eos # (Auto) 0.1 Baso # (Auto) 0.0 Immature Gran # (Auto) 0.0 Sodium 139.3 Potassium 5.28 H Chloride 110.0 H Carbon Dioxide 26.6 Anion Gap 7.98 BUN 21.7 H Creatinine 1.36 H Estimated GFR (MDRD) 51.00 BUN/Creatinine Ratio 15.95 Glucose 122.4 H Calcium 9.26 Magnesium 2.15 Total Bilirubin 0.57 AST 21.0 ALT 19.5 Alkaline Phosphatase 64.9 Troponin I < 0.012 NT-Pro-B Natriuret Pep 260 Total Protein 6.91 Albumin 3.92 Globulin 2.99 Albumin/Globulin Ratio 1.31 SARS CoV-2 RNA Rapid SALTY Negative Imaging Imaging: EXAM: CT HEAD WITHOUT CONTRAST. HISTORY: Head trauma, fall. COMPARISON: 04/23/2023. TECHNIQUE: Multiple axial images of the brain were obtained from the skull base through the vertex without intravenous contrast. Multiplanar reformats were provided. FINDINGS: There is no intracranial hemorrhage or extraaxial collection. The waggoner-white differentiation is maintained without evidence for acute large v ascular territory infarction. There are areas of periventricular and subcortical white matter low attenuation. The cortical sulci and cerebral ventricles are symmetrically enlarged. The basal cisterns are well visualized. There is no hydrocephalus, mass effect, or midline shift. The paranasal sinuses and mastoid air cells are clear. The calvarium is intact. Since the prior study, there has been no significant interval change. IMPRESSION: 1. No acute intracranial abnormality. 2. Chronic small vessel ischemic changes and atrophy. EXAM: CT LUMBAR SPINE WITHOUT CONTRAST. HISTORY: Lower extremity weakness. COMPARISON: Abdominal CT 03/07/2021. TECHNIQUE: Multiple axial images of the lumbar spine were obtained without intravenous contrast. Images were reformatted in the sagittal and coronal planes. FINDINGS: There is mild left convex curvature centered near the thoracolumbar junction. Otherwise, the normal curvature and alignment are maintained. Vertebral body and intervertebral disc heights are normal. No fracture or subluxation is seen. T12-L1: No neural compromise. L1-2: Disc osteophyte formation and facet arthropathy with mild neural foraminal narrowing and flattening of the ventral thecal sac. L2-3: Disc osteophyte formation and facet arthropathy with flattening of the ventral thecal sac and moderate neural foraminal narrowing. L3-4: Disc osteophyte formation, facet arthropathy thickening of ligamentum flavum with mild central canal stenosis and mild right and moderate left neural foraminal narrowing. L4-5: Disc osteophyte formation, facet arthropathy thickening of ligamentum flavum with mild moderate central canal stenosis and moderate right and severe left neural foraminal narrowing. L5-S1: Disc osteophyte formation and facet arthropathy with moderate neural foraminal narrowing. Paravertebral soft tissues demonstrate no acute abnormality. Atherosclerotic calcifications present without aneurysm. IMPRESSION: 1. No acute abnormality of the lumbar spine. 2. Degenerative changes as described Review Statement Review Statement: I have independently reviewed and interpreted the labs/EKGs/imaging that were ordered by the ER provider. I have reviewed all outside records that are avai lable currently in our EMR including imaging/notes/labs from previous visits. Plan Plan: 1. Hyperkalemia - telemetry, received IVF in ER, will repeat in am 2. Weakness, Frequent Falls - PT/OT to eval, dispo TBD 3. 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 Hypertension - chronic, continue home medications 5. Conjunctivitis - continue previously prescribed medications 6. COPD - on home O2 2L, not in exacerbation, monitor DVT Prophylaxis: Lovenox Time Spent: Greater than 80 minutes spent with patient, 50% of the time spent with this patient was devoted to counseling and coordination of care. [facility] minutes spent discussing advance care planning. Disposition: Admit to: Med/Surg Observation Discussed Plan of Care with Dr. Fly Melendez. Medications Medication Orders: Medications Ordered Category Date Time Status 0.9 % Sodium Chloride [Saline Flush] Meds 05/12/23 14:08 Active 1 syr IVF PRN PRN
[2023-05-12] MEDS ORDERED: TYLENOL PO PRN (17:14)
[2023-05-12] MEDS ORDERED: VENTOLIN HFA IH PRN (17:26)
[2023-05-12] MEDS: SODIUM CHLORIDE 500 ML IV ONE (18:02)
[2023-05-12] MEDS: COREG PO SCH (21:34)
[2023-05-12] MEDS: LIPITOR PO SCH (21:34)
[2023-05-12] MEDS: ERYTHROMYCIN RIGHTEYE SCH (21:35)
[2023-05-13] MEDS: SYMBICORT 80-4.5 MCG INHALER IH SCH (05:25)
[2023-05-13 05:34] LABS: BASOPHILS % (AUTO) 0.2 % (0.0-3.0); EOSINOPHILS # (AUTO) 0.2 K/ul (0.0-0.7); HEMATOCRIT 46.5 % (42.0-52.0); HEMOGLOBIN 14.4 g/dl (14.0-18.0); IMMATURE GRANULOCYTE % (AUTO) 0.2 % (0.0-5.0); LYMPHOCYTES # (AUTO) 2.2 K/uL (0.60-3.4); LYMPHOCYTES % (AUTO) 23.1 (10.0-50.0); MEAN CORPUSCULAR HEMOGLOBIN 30.1 pg (27.0-31.0); MEAN CORPUSCULAR VOLUME 97.3 fl (80.0-94.0); MONOCYTES # (AUTO) 0.9 K/uL (0.4-2.0); MONOCYTES % (AUTO) 9.7 (0-10); NEUTROPHILS # (AUTO) 6.1 K/ul (2.0-6.9); NEUTROPHILS % (AUTO) 64.8 % (42.2-75.2); PLATELET COUNT 236 10^3/uL (140-440); RDW COEFFICIENT OF VARIATION 13.3 % (11.6-14.8); RED BLOOD COUNT 4.78 10^6/ul (4.70-6.10); WHITE BLOOD COUNT 9.41 K/ul (4.2-10.2)
[2023-05-13] MEDS: PROTONIX PO SCH (05:35)
[2023-05-13] MEDS: BUMEX PO SCH (05:35)
[2023-05-13 06:01] LABS: ALANINE AMINOTRANSFERASE 17.9 U/L (0-50); ALBUMIN 3.7 g/dL (3.5-5.0); ALKALINE PHOSPHATASE 59.1 U/L (56-119); ASPARTATE AMINO TRANSFERASE 20.8 U/L (17-59); BILIRUBIN,TOTAL 0.5 mg/dL (0.2-1.3); BLOOD UREA NITROGEN 18.3 mg/dL (9-20); CALCIUM 8.93 mg/dL (8.4-10.2); CARBON DIOXIDE 27.3 mmol/L (22-30.0); CHLORIDE 109.6 mmol/L (98-107); CREATININE 1.3 mg/dL (0.60-1.10); POTASSIUM 4.04 mmol/L (3.5-5.1); SODIUM 138.9 mmol/L (134.5-145)
[2023-05-13 06:03] LABS: GLUCOSE 33.3 mg/dL (74-106)
[2023-05-13] MEDS ORDERED: DEXTROSE 50%-WATER ABBOJECT IVP PRN (07:14)
[2023-05-13] MEDS ORDERED: LANTUS SUBCUT SCH (07:30)
[2023-05-13] MEDS: FLOMAX PO SCH (08:38)
[2023-05-13] MEDS: NORVASC PO SCH (08:38)
[2023-05-13] MEDS: HYZAAR 50-12.5 MG TAB PO SCH (08:38)
[2023-05-13] MEDS: JARDIANCE PO SCH (08:39)
[2023-05-13] MEDS: LOVENOX SUBCUT SCH (08:39)
[2023-05-13] MEDS ORDERED: DRISDOL PO SCH (09:00)
[2023-05-13] MEDS ORDERED: NON-FORMULARY MEDICATION (Dapagliflozin Propanediol [Farxiga] 10 mg tablet) PO SCH (09:00)
[2023-05-13] MEDS ORDERED: [UNRECOGNIZED DRUG - OTHER] EACHEYE SCH (09:00)
--- NOTE | 2023-05-13 09:24 | PCM.PROG ---
Date/Time Seen Date Seen by Provider: 05/13/23 Time Seen by Provider: 08:00 Provider Provider: CARLA FERRER, [facility] Chief Complaint Chief Complaint: GENERALIZED WEAKNESS; FREQ FALLS Subjective Subjective: Blood glucose found to be 33 this am. He was given oral intake to improve. Patient tolerated well. reports patient has been having this issue every day at home and he is unable to function. Has fallen multiple times due to this. Last dosage adjustment of his lantus was from 100 units bid to 60 units bid and no other adjustment made when he came to the ER the last time. Objective Appearance: Positive No Apparent Distress and Alert and Oriented x3 Chest/Lungs: Positive Symmetrical With Equal Breath Sounds, Clear to Auscultation Bilaterally, Good Air Movement all 4 Lung [place] and Other (on chronic 2L) Heart: Positive RRR and Pulses Normal GI/: Positive Soft, Nontender, Bowel Sounds Normal and No Distention Musculoskeletal: Positive Not Examined Neurological: Positive Sensation Intact, Motor intact, Reflexes Intact, Alert, Oriented and Other (generalized weakness) Vital Signs Vital Signs: Vital Signs: Last 24 Hours 05/12/23 13:39 05/12/23 16:51 05/12/23 16:51 Temperature 97.1 F L 97 F L Temperature Source Infrared Temporal Artery Scan Pulse Rate 110 H 99 Pulse Rate [Apical] Respiratory Rate 16 20 Blood Pressure 172/84 H Blood Pressure Mean Blood Pressure Right Arm 182/113 Blood Pressure Location Blood Pressure Position Sitting O2 Sat by Pulse Oximetry 91 L 95 Oxygen Delivery Method Nasal Cannula Nasal Cannula Oxygen Flow Rate 2 2 Height 5 ft 9 in 5 ft 9 in Weight 304 lb 3.2 oz 315 lb Telemetry Type Telemetry Monitoring Telemetry Heart Rate EKG OH Interval EKG QRS Interval Telemetry Strip Reading 05/12/23 17:00 05/12/23 17:17 05/12/23 17:58 Temperature Temperature Source Pulse Rate Pulse Rate [Apical] Respiratory Rate Blood Pressure Blood Pressure Mean Blood Pressure Right Arm Blood Pressure Location Blood Pressure Position O2 Sat by Pulse Oximetry Oxygen Delivery Method Nasal Cannula Nasal Cannula Oxygen Flow Rate Height Weight Telemetry Type Remote Telemetry Telemetry Monitoring Started Telemetry Heart Rate 97 EKG OH Interval 0.17 EKG QRS Interval 0.08 Telemetry Strip Reading SR 05/12/23 18:00 05/12/23 19:00 05/12/23 19:00 Temperature 97.1 F L Temperature Source Temporal Artery Scan Pulse Rate 101 H Pulse Rate [Apical] Respiratory Rate 24 H Blood Pressure 110/78 Blood Pressure Mean 88 Blood Pressure Right Arm Blood Pressure Location Blood Pressure Position O2 Sat by Pulse Oximetry 95 Oxygen Delivery Method Nasal Cannula Nasal Cannula Oxygen Flow Rate 2 Height Weight Telemetry Type Remote Telemetry Telemetry Monitoring Continues Telemetry Heart Rate 98 EKG OH Interval 0.19 EKG QRS Interval 0.12 H Telemetry Strip Reading SR WITH BBB 05/12/23 20:00 05/12/23 20:00 05/12/23 21:00 Temperature Temperature Source Pulse Rate Pulse Rate [Apical] Respiratory Rate Blood Pressure Blood Pressure Mean Blood Pressure Right Arm Blood Pressure Location Blood Pressure Position O2 Sat by Pulse Oximetry Oxygen Delivery Method Nasal Cannula Nasal Cannula Nasal Cannula Oxygen Flow Rate 2 Height Weight Telemetry Type Telemetry Monitoring Telemetry Heart Rate EKG OH Interval EKG QRS Interval Telemetry Strip Reading 05/12/23 21:43 05/12/23 22:00 05/12/23 23:00 Temperature 97 F L Temperature Source Temporal Artery Scan Pulse Rate 103 H Pulse Rate [Apical] Respiratory Rate 22 H Blood Pressure 106/72 Blood Pressure Mean 83 Blood Pressure Right Arm Blood Pressure Location Left Arm Blood Pressure Position Supine O2 Sat by Pulse Oximetry 94 L Oxygen Delivery Method Nasal Cannula Nasal Cannula Nasal Cannula Oxygen Flow Rate 2 Height Weight Telemetry Type Telemetry Monitoring Telemetry Heart Rate EKG OH Interval EKG QRS Interval Telemetry Strip Reading 05/12/23 23:50 05/13/23 00:59 05/13/23 01:00 Temperature Temperature Source Pulse Rate Pulse Rate [Apical] Respiratory Rate Blood Pressure Blood Pressure Mean Blood Pressure Right Arm Blood Pressure Location Blood Pressure Position O2 Sat by Pulse Oximetry Oxygen Delivery Method Nasal Cannula Nasal Cannula Oxygen Flow Rate Height Weight Telemetry Type Remote Telemetry Telemetry Monitoring Continues Telemetry Heart Rate 97 EKG OH Interval 0.13 EKG QRS Interval 0.09 Telemetry Strip Reading SR 05/13/23 02:00 05/13/23 02:35 05/13/23 03:00 Temperature 97.2 F L Temperature Source Temporal Artery Scan Pulse Rate 85 Pulse Rate [Apical] Respiratory Rate 20 Blood Pressure 145/84 H Blood Pressure Mean 104 Blood Pressure Right Arm Blood Pressure Location Right Arm Blood Pressure Position Supine O2 Sat by Pulse Oximetry 95 Oxygen Delivery Method Nasal Cannula Nasal Cannula Nasal Cannula Oxygen Flow Rate 2 Height Weight Telemetry Type Telemetry Monitoring Telemetry Heart Rate EKG OH Interval EKG QRS Interval Telemetry Strip Reading 05/13/23 04:00 05/13/23 05:00 05/13/23 05:43 Temperature 97.2 F L Temperature Source Temporal Artery Scan Pulse Rate 81 Pulse Rate [Apical] Respiratory Rate 20 Blood Pressure 148/81 H Blood Pressure Mean 103 Blood Pressure Right Arm Blood Pressure Location Left Arm Blood Pressure Position Supine O2 Sat by Pulse Oximetry 94 L Oxygen Delivery Method Nasal Cannula Nasal Cannula Nasal Cannula Oxygen Flow Rate 2 Height Weight Telemetry Type Telemetry Monitoring Telemetry Heart Rate EKG OH Interval EKG QRS Interval Telemetry Strip Reading 05/13/23 06:00 05/13/23 07:00 05/13/23 07:00 Temperature Temperature Source Pulse Rate Pulse Rate [Apical] Respiratory Rate Blood Pressure Blood Pressure Mean Blood Pressure Right Arm Blood Pressure Location Blood Pressure Position O2 Sat by Pulse Oximetry Oxygen Delivery Method Nasal Cannula Nasal Cannula Oxygen Flow Rate Height Weight Telemetry Type Remote Telemetry Telemetry Monitoring Continues Telemetry Heart Rate 94 EKG OH Interval 0.13 EKG QRS Interval 0.07 Telemetry Strip Reading NSR 05/13/23 08:00 05/13/23 08:00 05/13/23 09:00 Temperature Temperature Source Pulse Rate Pulse Rate [Apical] 76 Respiratory Rate 20 Blood Pressure Blood Pressure Mean Blood Pressure Right Arm Blood Pressure Location Blood Pressure Position O2 Sat by Pulse Oximetry Oxygen Delivery Method Nasal Cannula Nasal Cannula Nasal Cannula Oxygen Flow Rate 2 Height Weight Telemetry Type Telemetry Monitoring Telemetry Heart Rate EKG OH Interval EKG QRS Interval Telemetry Strip Reading Lab Results Lab Results: Lab Results: Last 24 Hours 05/13/23 05/12/23 05/12/23 05:21 14:16 14:12 WBC 9.41 10.27 H RBC 4.78 5.10 Hgb 14.4 15.4 Hct 46.5 49.3 MCV 97.3 H 96.7 H MCH 30.1 30.2 MCHC 31.0 L 31.2 L RDW Coeff of Krissy 13.3 13.3 Plt Count 236 246 Immature Gran % (Auto) 0.2 0.3 Neut % (Auto) 64.8 72.7 Lymph % (Auto) 23.1 17.4 [place] % (Auto) 9.7 8.4 Eos % (Auto) 2.0 0.9 Baso % (Auto) 0.2 0.3 Neut # (Auto) 6.1 7.5 H Lymph # (Auto) 2.2 1.8 [place] # (Auto) 0.9 0.9 Eos # (Auto) 0.2 0.1 Baso # (Auto) 0.0 0.0 Immature Gran # (Auto) 0.0 0.0 Sodium 138.9 139.3 Potassium 4.04 5.28 H Chloride 109.6 H 110.0 H Carbon Dioxide 27.3 26.6 Anion Gap 6.04 7.98 BUN 18.3 21.7 H Creatinine 1.30 H 1.36 H Estimated GFR (MDRD) 54.00 51.00 BUN/Creatinine Ratio 14.07 15.95 Glucose 33.3 L* D 122.4 H Calcium 8.93 9.26 Magnesium 2.15 Total Bilirubin 0.50 0.57 AST 20.8 21.0 ALT 17.9 19.5 Alkaline Phosphatase 59.1 64.9 Troponin I < 0.012 NT-Pro-B Natriuret Pep 260 Total Protein 7.00 6.91 Albumin 3.70 3.92 Globulin 3.30 2.99 Albumin/Globulin Ratio 1.12 1.31 SARS CoV-2 RNA Rapid SALTY Negative Additional Comments Additional Comments: I have independently reviewed and interpreted the labs/EKGs/imaging ordered during this hospital stay. I have reviewed outside records that are available in our EMR that pertain to medical stay including imaging/notes/labs from previous visits. Active Medications Active Medications: Medications Generic Name Dose Route Start Last Admin Trade Name Freq PRN Reason Stop Dose Admin Acetaminophen 650 mg 05/12/23 17:14 Acetaminophen 325 Mg Tablet PO Q4H PRN Mild Pain Albuterol Sulfate 2 puff 05/12/23 17:26 Albuterol Sulfate 8 Gm Inhaler IH Q4H PRN Wheezing Amlodipine Besylate 10 mg 05/13/23 09:00 05/13/23 08:38 Amlodipine Besylate 5 Mg Tablet PO 10 mg DAILY ESTEBAN Administration Atorvastatin Calcium 40 mg 05/12/23 21:00 05/12/23 21:34 Atorvastatin Calcium 20 Mg Tablet PO 40 mg BEDTIME ESTEBAN Administration Budesonide/Formoterol Fumarate 2 puff 05/13/23 06:00 05/13/23 05:25 Budesonide/Formoterol Fumarate 80/4.5 Mcg Hfa.Aer.Ad IH 2 puff RTBID [facility] Administration Bumetanide 0.5 mg 05/13/23 06:30 05/13/23 05:35 Bumetanide 1 Mg Tablet PO 0.5 mg BID@0630,1700 [facility] Administration Calcitriol 0.25 mcg 05/14/23 09:00 Calcitriol 0.25 Mcg Capsule PO MoWeFr@0900 [facility] Carvedilol 6.25 mg 05/12/23 21:00 05/13/23 08:38 Carvedilol 6.25 Mg Tablet PO 6.25 mg BID [facility] Administration Dextrose 50 ml 05/13/23 07:14 Dextrose 50 % In Water 50 Ml Disp.Syrin IVP ONCE PRN Hypoglycemia Empagliflozin 25 mg 05/13/23 09:00 05/13/23 08:39 Empagliflozin 10 Mg Tablet PO 25 mg DAILY [facility] Administration Enoxaparin Sodium 40 mg 05/13/23 09:00 05/13/23 08:39 Enoxaparin Sodium 40 Mg/0.4 Ml Syr SUBCUT 40 mg DAILY [facility] Administration Ergocalciferol 50,000 unit 05/13/23 09:00 Ergocalciferol (Vitamin D2) 50,000 Unit Capsule PO DAILY [facility] Erythromycin 1 applic 05/12/23 21:00 05/13/23 09:00 Erythromycin 3.5 Gm Opth Oint RIGHTEYE 05/15/23 20:59 1 applic QID [facility] Administration HCTZ/Losartan Potassium 1 tab 05/13/23 09:00 05/13/23 08:38 Losartan/Hydrochlorothiazide 50/12.5 Mg Tab PO 1 tab DAILY [facility] Administration Insulin Glargine 60 unit 05/13/23 07:30 Insulin Glargine,Hum.Rec.Anlog 100 Units/Ml SUBCUT BID INSULIN2 [facility] Insulin Human Regular 0 unit 05/12/23 17:14 Insulin Regular, Human 100 Unit/Ml (10ml) Vial SUBCUT PRN PRN Hyperglycemia Protocol Non-Formulary Medication 1 drop 05/13/23 09:00 Polymyxin B Sulf-Trimethoprim EACHEYE DIRECTED [facility] Pantoprazole Sodium 40 mg 05/13/23 06:30 05/13/23 05:35 Pantoprazole Sodium 40 Mg Tablet.Dr PO 40 mg DAILY@0630 [facility] Administration Sodium Chloride 1 syr 05/12/23 14:08 0.9% Sodium Chloride 10 Ml Disp.Syrin IVF PRN PRN To flush IV Tamsulosin HCl 0.4 mg 05/13/23 09:00 05/13/23 08:38 Tamsulosin Hcl 0.4 Mg Cap.Er.24h PO 0.4 mg DAILY ESTEBAN Administration Plan Plan: 1. Severe Hypoglycemia - previously on lantus 100 units BID, decreased to 60 units BID, will lower dose to daily and see if patient improves; reports this contributes to his weakness daily at home 2. Hyperkalemia - Resolved, telemetry, received IVF in ER, monitor 3. Weakness, Frequent Falls - PT/OT to eval, dispo TBD 4. 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 Hypertension - chronic, continue home medications 6. Conjunctivitis - continue previously prescribed medications 7. COPD - on home O2 2L, not in exacerbation, monitor DVT Prophylaxis: Lovenox Review Statement Review Statement: I have personally discussed and reviewed the patient's visit/currently labs/imaging/decision making with Dr. Melendez, my supervising attending. Greater that 50 minutes spent with patient, 50% of the time spent with this patient was devoted to counseling and coordination of care.
[2023-05-13] MEDS: HUMULIN R SUBCUT PRN (11:50)
--- NOTE | 2023-05-13 15:31 | RS.PTINEVL ---
Subjective Patient information Date of Evaluation: 05/13/23 Date of Arrival on Unit: 05/12/23 Admitted From:: Emergency Dept Diagnosis: weakness, frequent falls, hypoglycemia Usual Living Arrangement: With Spouse Home Environment: Apartment Medical History: Hypertension, COPD, Diabetes and Arthritis Medical History Comments:: frequent falls LATEX ALLERGY?: No Surgical History Comments:: nephrectomy, L shoulder surgery Medications: see chart Subjective Information/ Patient Comments:: pt states that he would like to try to walk. States he falls a lot at home, not sure why. States his pushes him through the apt in a wheeled computer chair. Level of function Prior to this admission, the patient could do the following:: Partially Dependent Ambulation Abilities prior to this admission: frequent falls, occasionally used rwx. pushed in computer chair. Current Level of Function: Partially Dependent Current Equipment Used at Home: walker, wheelchair, hospital bed, shower chair, bedside commode. Interventions Objective Patient Orientation: Person and Place Current Interventions: Oxygen (2 liters ) and Telemetry Observation: Edema BLE Range of Motion ROM Right Upper Extremity AROM: WFL's Left Upper Extremity AROM: WFL's Right Lower Extremity AROM: WFL's Left Lower Extremity AROM: WFL's Muscle Strength Muscle Strength Right Upper Extremity: Mild Weakness (grossly 4/5 ) Left Upper Extremity: Mild Weakness (grossly 4/5 ) Right Lower Extremity: Mild Weakness (hip flex 4-/5, knee flex/ext 4/5, ankle DF/PF 4/5 ) Left Lower Extremity: Mild Weakness (hip flex 4-/5, knee flex/ext 4/5, ankle DF/PF 4/5 ) Sensation Sensation Right Upper Extremity: Intact/Normal Left Upper Extremity: Intact/Normal Right Lower Extremity: Impaired Left Lower Extremity: Impaired Comments: n/t in B feet Palpation Palpation Findings: None/Normal Balance Sitting Balance and Reactions Static Sitting Balance: Good Dynamic Sitting Balance: Fair Standing Balance and Reactions Static Standing Balance: Poor Dynamic Standing Balance: Poor Standing Equilibrium Reactions: Delayed Left and Delayed Right Standing Protective Reactions: Delayed Left and Delayed Right Functional Mobility Bed Mobility Rolling R/L: CGA and 1 person assist Supine to Sit: CGA and 1 person assist Transfers Sit to Stand: Min Assist and 1 person assist Stand to Sit: Min Assist and 1 person assist Safety Awareness Safety Awareness: Poor JESSIE INDEX SCORE: n/a Ambulation Ambulation Assistive Device Used: Rolling Walker Orthotic/Prosthetic Device: No Distance: 35ft Assistance needed with Ambulation: Min Assist and 1 person assist Quality of Ambulation: pt amb with O2 Gait Deviations: Wide Based gait, Forward posture and Short stride Factors Affecting Ambulation: Decreased Balance, Breathing/O2 Saturation, Weakness, Decreased Safety and Limited Endurance Treatment time Units charged Gait trainin Time with patient Length of Evaluation: 18 Total treatment time: 31 Patient Education Education Patient Education: Education of Plan of Care Teaching Recipient: Patient Teaching Methods: Discussion Comments: discussion regarding POC Assessment Assessment Problem List:: Decreased level of function, Requires training/education, Decreased safety/Risk of falls, Weakness and Cognitive status limits abilities Rehab Potential: Fair Further Therapy Indicated?: Yes Candidate for Swing Bed for Therapy Services?: Feel pt would need to be reassessed at later time. pt has HH at home Evaluation Complexity: HISTORY: Medium, EXAM OF BODY SYSTEMS: Medium, CLINICAL PRESENTATION: Medium and CLINICAL DECISION MAKING: Medium Patient's Goal(s): "go back home with my " Short Term Goals GOAL #1: pt demonstrate rolling and scooting in bed independently. 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 GOAL #1: pt transfer sup to/from sit to/from stand SBA x 1 Goal to be met by: 05/18/23 GOAL #2: pt amb 100ft with rwx and O2 with CGA to SBA Goal to be met by: 05/18/23 GOAL #3: Improve dyn stand balance to fair- Goal to be met by: 05/18/23 Plan Plan of Care: Therapeutic EX, Neuromuscular Re-Educ and Therapeutic Activity Other:: gait training Frequency of Treatment: 1-2 X day, as tolerated Duration of Treatment: 5 days Anticipated Discharge Destination: Home Treatment Diagnosis (ICD 10 Codes): impaired balance gait difficulty weakness frequent falls Has the Physician been added for Co-signature?: Yes
--- NOTE | 2023-05-13 15:48 | RS.OTINEVL ---
Subjective Patient information Date of Evaluation: 05/13/23 Date of Arrival on Unit: 05/12/23 Admitted From:: Home Diagnosis: General weakness, Freq. falls PRECAUTIONS: Falls, Low Blood suger Usual Living Arrangement: With Spouse Living Arrangement Comments: Apartment (Government Housing) with Home Environment: Apartment Medical History: Hypertension, COPD and Diabetes Medical History Comments:: DMII, COPD, Conjunctivitis, L Kidney removed Surgical History Comments:: Kidney removed,L RCT Medications: Refer to chart. Subjective Information/ Patient Comments:: "Do you think I can go to [place] [place] for therapy?" Level of function Prior to this admission, the patient could do the following:: Independent ADL's and Partially Dependent Ambulation Abilities prior to this admission: was pushing him around the home with a desk chair. Pt was having many falls. Current Level of Function: Partially Dependent Current Equipment Used at Home: Pt-Seeing him at home, walker, wheelchair, hospital bed, shower chair, bedside commode. Interventions Objective Patient Orientation: Person and Situation Current Interventions: Oxygen Observation: Pt wearing O2. Pt min A to stand and CGA for transfers with RW. Interventions ROM Right Upper Extremity AROM: WFL's Left Upper Extremity AROM: Slight limitation Strength Right Upper Extremity: Mild Weakness Left Upper Extremity: Mild Weakness Sensation Right Upper Extremity: Intact/Normal Left Upper Extremity: Intact/Normal Balance Sitting Balance Static Sitting Balance: Good Dynamic Sitting Balance: Good Standing Balance Static Standing Balance: Poor Dynamic Standing Balance: Poor ADL Skills Bathing Bathing UE: Independent Bathing LE: Mod Assist Bathing Set-up: Shower Dressing Dressing UE: Min Assist Dressing LE: Mod Assist Toilet Management Toilet Hygiene: Independent Toilet Clothing Management: CGA Functional Mobility Bed Mobility Supine to Sit: CGA Transfers Stand to Sit: Min Assist Stand Pivot Transfers: CGA Ambulation Weight Bearing Status: FWB Assistive Device Used: Rolling Walker Assistance needed with Ambulation: CGA Safety Awareness Safety Awareness: Good JESSIE INDEX SCORE: . Additional Treatment Performed Time with patient Length of Evaluation: 18 Total treatment time: 20 Activities Do you enjoy playing games?: Yes Would you be interested in leaving your room for activities?: Yes Would you enjoy group activities?: Yes Do you have difficulty with your vision?: No Patient Interests:: Watching Television and Visiting/Socializing Patient Education Patient Education: Home Exercise Program and Education of Plan of Care Teaching Recipient: Patient Teaching Methods: Discussion and Demonstration Assessment Problem List:: Decreased level of function, Requires training/education, Decreased safety/Risk of falls and Weakness Rehab Potential: Good Further Therapy Indicated?: Yes Evaluation Complexity: HISTORY: Medium, EXAM OF BODY SYSTEMS: Medium and CLINICAL DECISION MAKING: Medium Patient's Goal(s): To get therapy here at [facility] [place] where he can go home and take care of himself. Short Term Goals Goals GOAL 1: Pt to increase (I) of toilet transfers to SBA. Goal to be met by: 05/16/23 GOAL 2: Pt to increase (I) of UB dressing to (I). Goal to be met by: 05/16/23 GOAL 3: Pt to increase (I) of LB dressing to SBA. Goal to be met by: 05/16/23 GOAL 4: Pt to increase BUE strength to 4+/5. Goal to be met by: 05/16/23 Half-Way Goals GOAL 1: Pt to be I with ADLs. Goal to be met by: 05/18/23 GOAL 2: Pt to increase BUE strength to 5/5. Goal to be met by: 05/18/23 Plan Plan of Care: Therapeutic EX, Therapeutic Activity and Self-Care/Home Management Frequency of Treatment: 1-2 X day, as tolerated Duration of Treatment: 1 Week Anticipated Discharge Destination: Home Treatment Diagnosis (ICD 10 Codes): Weakness R53.1, Need for assistance with personal care Z74.1 Has the Physician been added for Co-signature?: Yes
[2023-05-13] MEDS: COREG PO SCH (16:38)
[2023-05-14 05:42] LABS: BASOPHILS % (AUTO) 0.2 % (0.0-3.0); EOSINOPHILS # (AUTO) 0.2 K/ul (0.0-0.7); EOSINOPHILS % (AUTO) 2.2 % (0.0-7.0); HEMOGLOBIN 14.8 g/dl (14.0-18.0); IMMATURE GRANULOCYTE % (AUTO) 0.2 % (0.0-5.0); LYMPHOCYTES # (AUTO) 2.2 K/uL (0.60-3.4); LYMPHOCYTES % (AUTO) 23.4 (10.0-50.0); MEAN CORPUSCULAR HEMOGLOBIN 30.1 pg (27.0-31.0); MEAN CORPUSCULAR HGB CONC 30.8 (31.8-35.4); MEAN CORPUSCULAR VOLUME 97.6 fl (80.0-94.0); MONOCYTES % (AUTO) 10.5 (0-10); NEUTROPHILS % (AUTO) 63.5 % (42.2-75.2); PLATELET COUNT 257 10^3/uL (140-440); RDW COEFFICIENT OF VARIATION 13.5 % (11.6-14.8); RED BLOOD COUNT 4.92 10^6/ul (4.70-6.10); WHITE BLOOD COUNT 9.41 K/ul (4.2-10.2)
[2023-05-14 06:01] LABS: ALANINE AMINOTRANSFERASE 19.9 U/L (0-50); ALBUMIN 4.05 g/dL (3.5-5.0); ALKALINE PHOSPHATASE 57.4 U/L (56-119); ASPARTATE AMINO TRANSFERASE 23.2 U/L (17-59); BILIRUBIN,TOTAL 0.58 mg/dL (0.2-1.3); BLOOD UREA NITROGEN 30.4 mg/dL (9-20); CALCIUM 9.15 mg/dL (8.4-10.2); CARBON DIOXIDE 28.1 mmol/L (22-30.0); CHLORIDE 104.6 mmol/L (98-107); CREATININE 1.56 mg/dL (0.60-1.10); GLUCOSE 106.8 mg/dL (74-106); POTASSIUM 4.55 mmol/L (3.5-5.1); TOTAL PROTEIN 7.41 g/dL (6.3-8.2)
[2023-05-14 06:03] LABS: SODIUM 137.6 mmol/L (134.5-145)
[2023-05-14] MEDS: LANTUS SUBCUT SCH (08:38)
[2023-05-14] MEDS: CALCITRIOL PO SCH (09:00)
[2023-05-14] MEDS ORDERED: [UNRECOGNIZED DRUG - OTHER] EACHEYE SCH ×2 (12:45→13:00)
--- NOTE | 2023-05-14 12:58 | PCM.PROG ---
Date/Time Seen Date Seen by Provider: 05/14/23 Time Seen by Provider: 09:00 Provider [facility] Chief Complaint Chief Complaint: GENERALIZED WEAKNESS; FREQ FALLS Subjective Subjective: Feeling better today. Worked well with PT yesterday. Had weakness episode with PT during ambulating this am. reports episodes of confusion at home. Patient difficult to carry on continued fluent conversation with at times. Objective Appearance: Positive No Apparent Distress, Alert and Oriented x3, Ill-Appearing and Obese Chest/Lungs: Positive Symmetrical With Equal Breath Sounds, Clear to Auscultation Bilaterally and Good Air Movement all 4 Lung [place] Heart: Positive RRR and Pulses Normal GI/: Positive Soft, Nontender, Bowel Sounds Normal and No Distention Musculoskeletal: Positive Not Examined Neurological: Positive Sensation Intact, Motor intact, Reflexes Intact, Alert, Oriented, Disorinted (at times) and Other (generalized weakness) Vital Signs Vital Signs: Vital Signs: Last 24 Hours 05/13/23 13:00 05/13/23 13:00 05/13/23 14:00 Temperature 97.6 F Temperature Source Temporal Artery Scan Pulse Rate 90 Respiratory Rate 18 Blood Pressure 114/63 Blood Pressure Mean 80 Blood Pressure Location Right Arm Blood Pressure Position O2 Sat by Pulse Oximetry 95 Oxygen Delivery Method Nasal Cannula Nasal Cannula Oxygen Flow Rate 2 Telemetry Type Remote Telemetry Telemetry Monitoring Continues Telemetry Heart Rate 93 EKG IN Interval 0.12 EKG QRS Interval 0.06 Telemetry Strip Reading NSR 05/13/23 14:00 05/13/23 18:00 05/13/23 19:00 Temperature 97.2 F L Temperature Source Tympanic Pulse Rate 91 Respiratory Rate 20 Blood Pressure 111/59 L Blood Pressure Mean 76 Blood Pressure Location Right Arm Blood Pressure Position Sitting O2 Sat by Pulse Oximetry 92 L Oxygen Delivery Method Nasal Cannula Nasal Cannula Oxygen Flow Rate 2 Telemetry Type Remote Telemetry Telemetry Monitoring Continues Telemetry Heart Rate 88 EKG IN Interval 0.10 L EKG QRS Interval 0.12 H Telemetry Strip Reading SR W/ BBB 05/13/23 20:00 05/13/23 21:34 05/14/23 01:00 Temperature 97.7 F Temperature Source Temporal Artery Scan Pulse Rate 94 Respiratory Rate 20 Blood Pressure 149/89 H Blood Pressure Mean 109 Blood Pressure Location Left Arm Blood Pressure Position Supine O2 Sat by Pulse Oximetry 96 Oxygen Delivery Method Nasal Cannula Nasal Cannula Oxygen Flow Rate 2 2 Telemetry Type Remote Telemetry Telemetry Monitoring Continues Telemetry Heart Rate 86 EKG IN Interval 0.14 EKG QRS Interval 0.08 Telemetry Strip Reading SR 05/14/23 02:00 05/14/23 05:12 05/14/23 05:23 Temperature 97.8 F 97.8 F Temperature Source Temporal Artery Scan Temporal Artery Scan Pulse Rate 87 89 Respiratory Rate 18 20 Blood Pressure 110/63 127/92 H Blood Pressure Mean 78 103 Blood Pressure Location Right Arm Right Arm Blood Pressure Position Supine Sitting O2 Sat by Pulse Oximetry 95 93 L 92 L Oxygen Delivery Method Nasal Cannula Nasal Cannula Nasal Cannula Oxygen Flow Rate 2 2 2 Telemetry Type Telemetry Monitoring Telemetry Heart Rate EKG IN Interval EKG QRS Interval Telemetry Strip Reading 05/14/23 09:35 Temperature Temperature Source Pulse Rate Respiratory Rate Blood Pressure Blood Pressure Mean Blood Pressure Location Blood Pressure Position O2 Sat by Pulse Oximetry 93 L Oxygen Delivery Method Nasal Cannula Oxygen Flow Rate 2 Telemetry Type Telemetry Monitoring Telemetry Heart Rate EKG IN Interval EKG QRS Interval Telemetry Strip Reading Lab Results Lab Results: Lab Results: Last 24 Hours 05/14/23 05:21 WBC 9.41 RBC 4.92 Hgb 14.8 Hct 48.0 MCV 97.6 H MCH 30.1 MCHC 30.8 L RDW Coeff of Krissy 13.5 Plt Count 257 Immature Gran % (Auto) 0.2 Neut % (Auto) 63.5 Lymph % (Auto) 23.4 [place] % (Auto) 10.5 H Eos % (Auto) 2.2 Baso % (Auto) 0.2 Neut # (Auto) 6.0 Lymph # (Auto) 2.2 [place] # (Auto) 1.0 Eos # (Auto) 0.2 Baso # (Auto) 0.0 Immature Gran # (Auto) 0.0 Sodium 137.6 Potassium 4.55 Chloride 104.6 Carbon Dioxide 28.1 Anion Gap 9.45 BUN 30.4 H Creatinine 1.56 H Estimated GFR (MDRD) 44.00 BUN/Creatinine Ratio 19.48 Glucose 106.8 H D Calcium 9.15 Total Bilirubin 0.58 AST 23.2 ALT 19.9 Alkaline Phosphatase 57.4 Total Protein 7.41 Albumin 4.05 Globulin 3.36 Albumin/Globulin Ratio 1.20 Additional Comments Additional Comments: I have independently reviewed and interpreted the labs/EKGs/imaging ordered during this hospital stay. I have reviewed outside records that are available in our EMR that pertain to medical stay including imaging/notes/labs from previous visits. Active Medications Active Medications: Medications Generic Name Dose Route Start Last Admin Trade Name Freq PRN Reason Stop Dose Admin Acetaminophen 650 mg 05/12/23 17:14 Acetaminophen 325 Mg Tablet PO Q4H PRN Mild Pain Albuterol Sulfate 2 puff 05/12/23 17:26 Albuterol Sulfate 8 Gm Inhaler IH Q4H PRN Wheezing Amlodipine Besylate 10 mg 05/13/23 09:00 05/14/23 08:34 Amlodipine Besylate 5 Mg Tablet PO 10 mg DAILY ESTEBAN Administration Atorvastatin Calcium 40 mg 05/12/23 21:00 05/13/23 21:02 Atorvastatin Calcium 20 Mg Tablet PO 40 mg BEDTIME ESTEBAN Administration Budesonide/Formoterol Fumarate 2 puff 05/13/23 06:00 05/14/23 05:41 Budesonide/Formoterol Fumarate 80/4.5 Mcg Hfa.Aer.Ad IH 2 puff RTBID ESTEBAN Administration Bumetanide 0.5 mg 05/13/23 06:30 05/14/23 05:40 Bumetanide 1 Mg Tablet PO 0.5 mg BID@0630,1700 ESTEBAN Administration Calcitriol 0.25 mcg 05/14/23 09:00 Calcitriol 0.25 Mcg Capsule PO MoWeFr@0900 ESTEBAN Carvedilol 6.25 mg 05/13/23 17:00 05/14/23 08:36 Carvedilol 6.25 Mg Tablet PO 6.25 mg [id number] ESTEBAN Administration Dextrose 50 ml 05/13/23 07:14 Dextrose 50 % In Water 50 Ml Disp.Syrin IVP ONCE PRN Hypoglycemia Empagliflozin 25 mg 05/13/23 09:00 05/14/23 08:34 Empagliflozin 10 Mg Tablet PO 25 mg DAILY ESTEBAN Administration Enoxaparin Sodium 40 mg 05/13/23 09:00 05/14/23 08:36 Enoxaparin Sodium 40 Mg/0.4 Ml Syr SUBCUT 40 mg DAILY ESTEBAN Administration Erythromycin 1 applic 05/12/23 21:00 05/14/23 09:43 Erythromycin 3.5 Gm Opth Oint RIGHTEYE 05/15/23 20:59 1 applic QID ESTEBAN Administration HCTZ/Losartan Potassium 1 tab 05/13/23 09:00 05/14/23 08:34 Losartan/Hydrochlorothiazide 50/12.5 Mg Tab PO 1 tab DAILY ESTEBAN Administration Insulin Glargine 60 unit 05/14/23 09:00 05/14/23 08:38 Insulin Glargine,Hum.Rec.Anlog 100 Units/Ml SUBCUT 60 unit DAILY ESTEBAN Administration Insulin Human Regular 0 unit 05/12/23 17:14 05/13/23 21:03 Insulin Regular, Human 100 Unit/Ml (10ml) Vial SUBCUT 3 unit PRN PRN Administration Hyperglycemia Protocol Pantoprazole Sodium 40 mg 05/13/23 06:30 05/14/23 05:40 Pantoprazole Sodium 40 Mg Tablet. PO 40 mg DAILY@0630 ESTEBAN Administration Sodium Chloride 1 syr 05/12/23 14:08 05/13/23 16:17 0.9% Sodium Chloride 10 Ml Disp.Syrin IVF 1 syr PRN PRN Administration To flush IV Sodium Chloride 1 syr 05/13/23 21:00 05/14/23 05:41 0.9% Sodium Chloride 10 Ml Disp.Syrin IVF 1 syr Q8HR ESTEBAN Administration Tamsulosin HCl 0.4 mg 05/13/23 09:00 05/14/23 08:36 Tamsulosin Hcl 0.4 Mg Cap.Er.24h PO 0.4 mg DAILY ESTEBAN Administration Plan Plan: 1. Severe Hypoglycemia - Improving, previously on lantus 100 units BID, decreased to 60 units BID, will lower dose to daily and see if patient improves; reports this contributes to his weakness daily at home 2. Hyperkalemia - Resolved, telemetry, received IVF in ER, monitor 3. Weakness, Frequent Falls - PT/OT to ja dispo TBD 4. 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 Hypertension - chronic, continue home medications 6. Conjunctivitis - continue previously prescribed medications 7. COPD - on home O2 2L, not in exacerbation, monitor 8. Dehydration - encouraged oral hydration, renal labs increased from initial, avoid hypotension, monitor 9. Confusion - disoriented at times DVT Prophylaxis: Lovenox Dispo: Spoke extensively with patient and about discharge plans with health care social worker present. Discussed concern for safety if patient goes home under 's care only. Discussed options of SNF. Patient and planning to discuss and will let me and health care social worker Yolanda know decision. Review Statement Review Statement: I have personally discussed and reviewed the patient's visit/currently labs/imaging/decision making with Dr. Melendez, my supervising attending. Greater that 50 minutes spent with patient, 50% of the time spent with this patient was devoted to counseling and coordination of care.
[2023-05-15 05:39] LABS: BASOPHILS % (AUTO) 0.4 % (0.0-3.0); EOSINOPHILS # (AUTO) 0.2 K/ul (0.0-0.7); EOSINOPHILS % (AUTO) 2.3 % (0.0-7.0); HEMATOCRIT 49.3 % (42.0-52.0); HEMOGLOBIN 15.3 g/dl (14.0-18.0); IMMATURE GRANULOCYTE # (AUTO) 0.1 (0.0-1.0); IMMATURE GRANULOCYTE % (AUTO) 0.5 % (0.0-5.0); LYMPHOCYTES # (AUTO) 2.7 K/uL (0.60-3.4); LYMPHOCYTES % (AUTO) 26.3 (10.0-50.0); MEAN CORPUSCULAR HEMOGLOBIN 30.2 pg (27.0-31.0); MEAN CORPUSCULAR VOLUME 97.2 fl (80.0-94.0); MONOCYTES % (AUTO) 9.4 (0-10); NEUTROPHILS # (AUTO) 6.2 K/ul (2.0-6.9); NEUTROPHILS % (AUTO) 61.1 % (42.2-75.2); PLATELET COUNT 280 10^3/uL (140-440); RDW COEFFICIENT OF VARIATION 13.5 % (11.6-14.8); RED BLOOD COUNT 5.07 10^6/ul (4.70-6.10); WHITE BLOOD COUNT 10.21 K/ul (4.2-10.2)
[2023-05-15 05:58] LABS: ALANINE AMINOTRANSFERASE 21.1 U/L (0-50); ALBUMIN 4.32 g/dL (3.5-5.0); ALKALINE PHOSPHATASE 64.7 U/L (56-119); ASPARTATE AMINO TRANSFERASE 21.8 U/L (17-59); BILIRUBIN,TOTAL 0.67 mg/dL (0.2-1.3); BLOOD UREA NITROGEN 34.8 mg/dL (9-20); CALCIUM 9.46 mg/dL (8.4-10.2); CARBON DIOXIDE 30.1 mmol/L (22-30.0); CHLORIDE 100.4 mmol/L (98-107); CREATININE 1.73 mg/dL (0.60-1.10); POTASSIUM 3.97 mmol/L (3.5-5.1); SODIUM 137.3 mmol/L (134.5-145); TOTAL PROTEIN 7.78 g/dL (6.3-8.2)
--- NOTE | 2023-05-15 09:34 | PCM.PROG ---
Date/Time Seen Date Seen by Provider: 05/15/23 Time Seen by Provider: 08:45 Provider Provider: [facility]LA [facility]ERR[facility] Chief Complaint Chief Complaint: GENERALIZED WEAKNESS; FREQ FALLS Objective Appearance: Positive No Apparent Distress and Obese Chest/Lungs: Positive Symmetrical With Equal Breath Sounds, Clear to Auscultatio n Bilaterally and Good Air Movement all 4 Lung [place] Heart: Positive RRR and Pulses Normal GI/: Positive Soft, Nontender, Bowel Sounds Normal and No Distention Musculoskeletal: Positive Not Examined Neurological: Positive Sensation Intact, Motor intact, Reflexes Intact, Alert, Disorinted (at times) and Other (generalized weakness) Vital Signs Vital Signs: Vital Signs: Last 24 Hours 05/14/23 09:35 05/14/23 13:00 05/14/23 13:59 Temperature Temperature Source Pulse Rate Respiratory Rate Blood Pressure Blood Pressure Mean Blood Pressure Location Blood Pressure Position O2 Sat by Pulse Oximetry 93 L Oxygen Delivery Method Nasal Cannula Nasal Cannula Oxygen Flow Rate 2 2 Telemetry Type Remote Telemetry Telemetry Monitoring Continues Telemetry Heart Rate 87 EKG LA Interval 0.12 EKG QRS Interval 0.11 H Telemetry Strip Reading SR with BBB 05/14/23 14:00 05/14/23 19:00 05/14/23 20:00 Temperature 97.3 F L Temperature Source Temporal Artery Scan Pulse Rate 83 Respiratory Rate 24 H Blood Pressure 104/67 Blood Pressure Mean 79 Blood Pressure Location Right Arm Blood Pressure Position Sitting O2 Sat by Pulse Oximetry 96 Oxygen Delivery Method Nasal Cannula Nasal Cannula Oxygen Flow Rate 2 2 Telemetry Type Remote Telemetry Telemetry Monitoring Continues Telemetry Heart Rate 94 EKG LA Interval 0.15 EKG QRS Interval 0.08 Telemetry Strip Reading SR 05/14/23 20:00 05/14/23 21:39 05/15/23 01:00 Temperature 97.8 F Temperature Source Temporal Artery Scan Pulse Rate 91 Respiratory Rate 20 Blood Pressure 128/68 Blood Pressure Mean 88 Blood Pressure Location Right Arm Blood Pressure Position Supine O2 Sat by Pulse Oximetry 94 L Oxygen Delivery Method Nasal Cannula Nasal Cannula Oxygen Flow Rate 2 2 Telemetry Type Remote Telemetry Telemetry Monitoring Continues Telemetry Heart Rate 93 EKG LA Interval 0.13 EKG QRS Interval 0.07 Telemetry Strip Reading SR 05/15/23 05:00 05/15/23 05:25 Temperature 98.4 F Temperature Source Temporal Artery Scan Pulse Rate 86 Respiratory Rate 20 Blood Pressure 138/72 Blood Pressure Mean 94 Blood Pressure Location Right Arm Blood Pressure Position Supine O2 Sat by Pulse Oximetry 92 L Oxygen Delivery Method Nasal Cannula Nasal Cannula Oxygen Flow Rate 2 2 Telemetry Type Telemetry Monitoring Telemetry Heart Rate EKG LA Interval EKG QRS Interval Telemetry Strip Reading Lab Results Lab Results: Lab Results: Last 24 Hours 05/15/23 05:00 WBC 10.21 H RBC 5.07 Hgb 15.3 Hct 49.3 MCV 97.2 H MCH 30.2 MCHC 31.0 L RDW Coeff of Krissy 13.5 Plt Count 280 Immature Gran % (Auto) 0.5 Neut % (Auto) 61.1 Lymph % (Auto) 26.3 [place] % (Auto) 9.4 Eos % (Auto) 2.3 Baso % (Auto) 0.4 Neut # (Auto) 6.2 Lymph # (Auto) 2.7 [place] # (Auto) 1.0 Eos # (Auto) 0.2 Baso # (Auto) 0.0 Immature Gran # (Auto) 0.1 Sodium 137.3 Potassium 3.97 Chloride 100.4 Carbon Dioxide 30.1 H Anion Gap 10.77 BUN 34.8 H Creatinine 1.73 H Estimated GFR (MDRD) 39.00 BUN/Creatinine Ratio 20.11 Glucose 164.0 H D Calcium 9.46 Total Bilirubin 0.67 AST 21.8 ALT 21.1 Alkaline Phosphatase 64.7 Total Protein 7.78 Albumin 4.32 Globulin 3.46 Albumin/Globulin Ratio 1.24 Additional Comments Additional Comments: I have independently reviewed and interpreted the labs/EKGs/imaging ordered during this hospital stay. I have reviewed outside records that are available in our EMR that pertain to medical stay including imaging/notes/labs from previous visits. Active Medications Active Medications: Medications Generic Name Dose Route Start Last Admin Trade Name Freq PRN Reason Stop Dose Admin Acetaminophen 650 mg 05/12/23 17:14 Acetaminophen 325 Mg Tablet PO Q4H PRN Mild Pain Albuterol Sulfate 2 puff 05/12/23 17:26 Albuterol Sulfate 8 Gm Inhaler IH Q4H PRN Wheezing Amlodipine Besylate 10 mg 05/13/23 09:00 05/15/23 09:18 Amlodipine Besylate 5 Mg Tablet PO 10 mg DAILY ESTEBAN Administration Atorvastatin Calcium 40 mg 05/12/23 21:00 05/14/23 20:30 Atorvastatin Calcium 20 Mg Tablet PO 40 mg BEDTIME ESTEBAN Administration Budesonide/Formoterol Fumarate 2 puff 05/13/23 06:00 05/15/23 05:30 Budesonide/Formoterol Fumarate 80/4.5 Mcg Hfa.Aer.Ad IH 2 puff RTBID ESTEBAN Administration Bumetanide 0.5 mg 05/13/23 06:30 05/15/23 05:30 Bumetanide 1 Mg Tablet PO 0.5 mg BID@0630,1700 ESTEBAN Administration Calcitriol 0.25 mcg 05/14/23 09:00 05/14/23 09:00 Calcitriol 0.25 Mcg Capsule PO Not Given MoWeFr@0900 ESTEBAN Carvedilol 6.25 mg 05/13/23 17:00 05/14/23 18:19 Carvedilol 6.25 Mg Tablet PO 6.25 mg [id number] ESTEBAN Administration Dextrose 50 ml 05/13/23 07:14 Dextrose 50 % In Water 50 Ml Disp.Syrin IVP ONCE PRN Hypoglycemia Diphenhydramine HCl 50 mg 05/14/23 15:33 Diphenhydramine Hcl 25 Mg Capsule PO BEDTIME PRN Sleeplessness Empagliflozin 25 mg 05/13/23 09:00 05/15/23 09:17 Empagliflozin 10 Mg Tablet PO 25 mg DAILY ESTEBAN Administration Enoxaparin Sodium 40 mg 05/13/23 09:00 05/15/23 09:20 Enoxaparin Sodium 40 Mg/0.4 Ml Syr SUBCUT 40 mg DAILY ESTEBAN Administration Erythromycin 1 applic 05/12/23 21:00 05/15/23 09:19 Erythromycin 3.5 Gm Opth Oint RIGHTEYE 05/15/23 20:59 1 applic QID ESTEBAN Administration HCTZ/Losartan Potassium 1 tab 05/13/23 09:00 05/15/23 09:17 Losartan/Hydrochlorothiazide 50/12.5 Mg Tab PO 1 tab DAILY ESTEBAN Administration Sodium Chloride 1,000 mls @ 75 mls/hr 05/15/23 08:30 Sodium Chloride IV .[id number] [facility] Insulin Glargine 60 unit 05/14/23 09:00 05/15/23 09:25 Insulin Glargine,Hum.Rec.Anlog 100 Units/Ml SUBCUT 60 unit DAILY ESTEBAN Administration Insulin Human Regular 0 unit 05/12/23 17:14 05/13/23 21:03 Insulin Regular, Human 100 Unit/Ml (10ml) Vial SUBCUT 3 unit PRN PRN Administration Hyperglycemia Protocol Pantoprazole Sodium 40 mg 05/13/23 06:30 05/15/23 05:30 Pantoprazole Sodium 40 Mg Tablet. PO 40 mg DAILY@0630 ESTEBAN Administration Sodium Chloride 1 syr 05/12/23 14:08 05/13/23 16:17 0.9% Sodium Chloride 10 Ml Disp.Syrin IVF 1 syr PRN PRN Administration To flush IV Sodium Chloride 1 syr 05/13/23 21:00 05/15/23 05:27 0.9% Sodium Chloride 10 Ml Disp.Syrin IVF 1 syr Q8HR ESTEBAN Administration Tamsulosin HCl 0.4 mg 05/13/23 09:00 05/15/23 09:18 Tamsulosin Hcl 0.4 Mg Cap.Er.24h PO 0.4 mg DAILY ESTEBAN Administration Plan Plan: 1. Severe Hypoglycemia - Improving, previously on lantus 100 units BID, decreased to 60 units BID, will lower dose to daily and see if patient improves; reports this contributes to his weakness daily at home 2. Hyperkalemia - Resolved, telemetry, received IVF in ER, monitor 3. Weakness, Frequent Falls - PT/OT to [place] TBD 4. 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 Hypertension - chronic, continue home medications 6. Conjunctivitis - continue previously prescribed medications 7. COPD - on home O2 2L, not in exacerbation, monitor 8. Dehydration - encouraged oral hydration, renal labs increased from initial, avoid hypotension, started on NS@75mL/hr today 9. Confusion - disoriented at times DVT Prophylaxis: Lovenox Dispo: Spoke extensively with patient and about discharge plans with manager social work present. Discussed concern for safety if patient goes home under 's care only. Agreed for patient to go to [facility] for skilled care. Review Statement Review Statement: I have personally discussed and reviewed the patient's visit/currently labs/imaging/decision making with Dr. Melendez, my supervising attending. Greater that 50 minutes spent with patient, 50% of the time spent with this patient was devoted to counseling and coordination of care.
[2023-05-15] MEDS: SODIUM CHLORIDE 1,000 ML IV SCH (14:16)
[2023-05-15] MEDS: BENADRYL PO PRN (20:27)
[2023-05-15 21:53] VITALS: RESP 18
[2023-05-16 05:50] LABS: BASOPHILS % (AUTO) 0.3 % (0.0-3.0); EOSINOPHILS # (AUTO) 0.2 K/ul (0.0-0.7); EOSINOPHILS % (AUTO) 2.5 % (0.0-7.0); HEMATOCRIT 46.7 % (42.0-52.0); HEMOGLOBIN 14.5 g/dl (14.0-18.0); IMMATURE GRANULOCYTE % (AUTO) 0.4 % (0.0-5.0); LYMPHOCYTES # (AUTO) 2.1 K/uL (0.60-3.4); MEAN CORPUSCULAR HEMOGLOBIN 30.4 pg (27.0-31.0); MEAN CORPUSCULAR VOLUME 97.9 fl (80.0-94.0); MONOCYTES # (AUTO) 0.9 K/uL (0.4-2.0); MONOCYTES % (AUTO) 9.5 (0-10); NEUTROPHILS # (AUTO) 5.7 K/ul (2.0-6.9); NEUTROPHILS % (AUTO) 63.3 % (42.2-75.2); PLATELET COUNT 230 10^3/uL (140-440); RDW COEFFICIENT OF VARIATION 13.3 % (11.6-14.8); RED BLOOD COUNT 4.77 10^6/ul (4.70-6.10); WHITE BLOOD COUNT 8.93 K/ul (4.2-10.2)
[2023-05-16 06:12] LABS: ALANINE AMINOTRANSFERASE 18.6 U/L (0-50); ALBUMIN 3.81 g/dL (3.5-5.0); ASPARTATE AMINO TRANSFERASE 19.2 U/L (17-59); BILIRUBIN,TOTAL 0.57 mg/dL (0.2-1.3); BLOOD UREA NITROGEN 45.4 mg/dL (9-20); CALCIUM 8.85 mg/dL (8.4-10.2); CARBON DIOXIDE 30.1 mmol/L (22-30.0); CHLORIDE 101.7 mmol/L (98-107); CREATININE 1.77 mg/dL (0.60-1.10); GLUCOSE 138.6 mg/dL (74-106); POTASSIUM 3.7 mmol/L (3.5-5.1); TOTAL PROTEIN 6.97 g/dL (6.3-8.2)
--- NOTE | 2023-05-16 09:08 | DCSUM ---
Hospital Provider Hospital [facility] Primary Care Physician: [facility] Course Vital Signs: Most Recent Vital Signs Temperature 98.6 F 05/16/23 05:54 Temperature Source Temporal Artery Scan 05/16/23 05:54 Temperature Source Infrared 05/12/23 13:39 Pulse Rate 97 05/16/23 05:54 Respiratory Rate 18 05/16/23 05:54 Blood Pressure 133/62 05/16/23 05:54 Blood Pressure Mean 85 05/16/23 05:54 Blood Pressure Right Arm 182/113 05/12/23 16:51 Blood Pressure Location Left Radial Artery 05/16/23 05:54 Blood Pressure Position Supine 05/16/23 05:54 O2 Sat by Pulse Oximetry 97 05/16/23 05:54 Oxygen Delivery Method Nasal Cannula 05/16/23 05:54 Oxygen Flow Rate 2 05/16/23 05:54 Height 5 ft 9 in 05/12/23 16:51 Weight 315 lb 05/12/23 16:51 Telemetry Type Remote Telemetry 05/16/23 07:00 Telemetry Monitoring Continues 05/16/23 07:00 Irregular Telemetry Rate (Approximate) 90-100 BPM 05/15/23 13:00 Telemetry Heart Rate 91 05/16/23 01:00 Telemetry SPO2 92 L 04/09/23 07:00 EKG IA Interval 0.14 05/16/23 07:00 EKG QRS Interval 0.14 H 05/16/23 07:00 Telemetry Strip Reading SR with BBB 05/16/23 07:00 Lab Results Last 24 Hours: 05/16/23 05:25 WBC 8.93 RBC 4.77 Hgb 14.5 Hct 46.7 MCV 97.9 H MCH 30.4 MCHC 31.0 L RDW Coeff of Krissy 13.3 Plt Count 230 Immature Gran % (Auto) 0.4 Neut % (Auto) 63.3 Lymph % (Auto) 24.0 [place] % (Auto) 9.5 Eos % (Auto) 2.5 Baso % (Auto) 0.3 Neut # (Auto) 5.7 Lymph # (Auto) 2.1 [place] # (Auto) 0.9 Eos # (Auto) 0.2 Baso # (Auto) 0.0 Immature Gran # (Auto) 0.0 Sodium 137.0 Potassium 3.70 Chloride 101.7 Carbon Dioxide 30.1 H Anion Gap 8.90 BUN 45.4 H Creatinine 1.77 H Estimated GFR (MDRD) 38.00 BUN/Creatinine Ratio 25.64 Glucose 138.6 H Calcium 8.85 Total Bilirubin 0.57 AST 19.2 ALT 18.6 Alkaline Phosphatase 63.0 Total Protein 6.97 Albumin 3.81 Globulin 3.16 Albumin/Globulin Ratio 1.20 Discharge Instructions Discharge Planning: Discharge Planning > 40 minutes If patient is discharged with left ventricular systolic dysfunction: Discharged with a beta jonathan? [] If no, why not? [] Discharged with an golden/arb? [] If no, why not? [] Discharge Medications: Medications at Discharge (Home Meds & RX) albuterol sulfate 90 mcg/actuation aerosol inhaler (Ventolin HFA) 2 puff inhalation Q4H PRN Shortness Of Breath 10/31/21 lancets 30 gauge (Sure Comfort Lancets) #100 ea 08/08/22 insulin syringe-needle U-100 1 mL 31 gauge x 5/16" (BD Insulin Syringe Ultra- Fine) #100 packets 09/03/22 blood sugar diagnostic (Contour Next Test Strips) #100 ea 09/06/22 atorvastatin 40 mg tablet See Rx Instructions .Route .COMPLEX #30 tabs 10/07/22 bumetanide 0.5 mg tablet 0.5 mg PO BID 04/08/23 calcitriol 0.25 mcg capsule 0.25 mcg PO .COMPLEX 04/08/23 dapagliflozin propanediol 10 mg tablet (Farxiga) 10 mg PO DAILY 04/08/23 ergocalciferol (vitamin D2) 1,250 mcg (50,000 unit) capsule (Vitamin D2) 50,000 unit PO DAILY 04/08/23 fluticasone furoate 100 mcg-vilanterol 25 mcg/dose inhalation powder (Breo Ellipta) 1 inh inhalation DAILY 04/08/23 pantoprazole 40 mg tablet,delayed release (Protonix) 40 mg PO DAILY 04/08/23 tamsulosin 0.4 mg capsule 0.4 mg PO DAILY 04/08/23 tramadol 50 mg tablet 50 mg PO Q8H PRN pain 04/08/23 carvedilol 6.25 mg tablet (Coreg) 6.25 mg PO BID #60 tabs 04/09/23 losartan 50 mg-hydrochlorothiazide 12.5 mg tablet 1 tab PO DAILY #30 tabs 04/09/23 semaglutide 1 mg/dose (4 mg/3 mL) subcutaneous pen injector (Ozempic) 1 mg (0.75 mL) subcut WEEKLY DIABETIC #3 mL 04/09/23 erythromycin 5 mg/gram (0.5 %) eye ointment 1 applic BOTHEYES QID #3.5 grams 04/23/23 amlodipine 10 mg tablet 10 mg PO DAILY 04/30/23 erythromycin 5 mg/gram (0.5 %) eye ointment 1 applic RIGHTEYE QID 7 days #3.5 grams 04/30/23 polymyxin B sulfate 10,000 unit-trimethoprim 1 mg/mL eye drops 1 drp BOTHEYES DIRECTED 04/30/23 insulin glargine 100 unit/mL subcutaneous solution (Lantus U-100 Insulin) 100 unit subcut BID 05/12/23 diphenhydramine HCl 50 mg capsule (NightTime Sleep Aid (diphenhydramine)) 100 mg PO BEDTIME 05/14/23 Discharge Plan Discharge Discharge Orders: Discharge Patient (ONCE); Ordered 05/14/23 Ordered By: VINITA ORDOÑEZ Activity Restrictions/Additional Instructions: Diabetic Diet Activity as tolerated Continue PT/OT Follow-up with PCP next week Medications: Lantus 60 units daily Sliding scale insulin with meals: Glucose <150 No Insulin Glucose 151-200 3 Units Glucose 201-250 5 Units Glucose 251-300 7 Units Glucose 301-350 10 Units Glucose 351-400 12 Units Glucose >401 Call Provider Instructions: Hypoglycemia in a Person with Diabetes (GEN) Patient Disposition: DISCH W/I HOSP TO [facility] Prescriptions: New insulin glargine [Lantus U-100 Insulin] 100 unit/mL Solution 60 unit subcut DAILY Qty: 100 0RF Humulin R Regular U-100 Insuln 100 unit/mL Solution See Protocol subcut PRN PRN (Reason: hyperglycemia) Qty: 100 0RF Protocol: [employer] Moderate Sliding Scale Condition: Glucose <150 Dose/Route: No Insulin Condition: Glucose 151-200 Dose/Route: 3 Units Condition: Glucose 201-250 Dose/Route: 5 Units Condition: Glucose 251-300 Dose/Route: 7 Units Condition: Glucose 301-350 Dose/Route: 10 Units Condition: Glucose 351-400 Dose/Route: 12 Units Condition: Glucose >401 Dose/Route: Call Provider Rx Instructions: Glucose <150 No Insulin Glucose 151-200 3 Units Glucose 201-250 5 Units Glucose 251-300 7 Units Glucose 301-350 10 Units Glucose 351-400 12 Units Glucose >401 Call Provider Continued (DME) lancets [Sure Comfort Lancets] 30 gauge misc See Rx Instructions .ROUTE .COMPLEX Qty: 100 5RF Dose Instruction: TEST THREE TIMES DAILY Rx Instructions: TEST THREE TIMES DAILY E11.9 DM2 (DME) insulin syringe-needle U-100 [BD Insulin Syringe Ultra-Fine] 1 mL 31 gauge x 5/16 syringe See Rx Instructions .ROUTE .COMPLEX Qty: 100 5RF Dose Instruction: USE DIRECTED WITH LANTUS TWICE DAILY Rx Instructions: USE DIRECTED WITH LANTUS TWICE DAILY (DME) Contour Next Test Strips Strip See Rx Instructions .ROUTE .COMPLEX Qty: 100 5RF Dose Instruction: TEST THREE TIMES DAILY Rx Instructions: TEST THREE TIMES DAILY atorvastatin 40 mg tablet See Rx Instructions .ROUTE .COMPLEX Qty: 30 2RF Dose Instruction: TAKE 1 TABLET (40 MG TOTAL) BY MOUTH NIGHTLY AT BEDTIME. Rx Instructions: TAKE 1 TABLET (40 MG TOTAL) BY MOUTH NIGHTLY AT BEDTIME. albuterol sulfate [Ventolin HFA] 90 mcg/actuation HFA aerosol inhaler 2 puff INHALATION Q4H PRN (Reason: Shortness Of Breath) dapagliflozin propanediol [Farxiga] 10 mg tablet 10 mg PO DAILY tramadol 50 mg tablet 50 mg PO Q8H PRN (Reason: pain) Hold Instructions: ran out but states he needs fluticasone furoate-vilanterol [Breo Ellipta] 100-25 mcg/dose blister with device 1 inh inhalation DAILY ergocalciferol (vitamin D2) [Vitamin D2] 1,250 mcg (50,000 unit) capsule 50,000 unit PO DAILY calcitriol 0.25 mcg capsule 0.25 mcg PO .COMPLEX Rx Instructions: take 1 capsule po three times a week tamsulosin 0.4 mg capsule 0.4 mg PO DAILY pantoprazole [Protonix] 40 mg tablet,delayed release (DR/EC) 40 mg PO DAILY bumetanide 0.5 mg tablet 0.5 mg PO BID Rx Instructions: TAKE 1 TABLET TWICE DAILY AND AT LUNCH. Ozempic 1 mg/dose (4 mg/3 mL) pen injector 1 mg subcut WEEKLY Qty: 3 0RF Rx Instructions: THURSDAYS carvedilol [Coreg] 6.25 mg tablet 6.25 mg PO BID Qty: 60 0RF Rx Instructions: must administer with a meal/food losartan-hydrochlorothiazide 50-12.5 mg tablet 1 tab PO DAILY Qty: 30 0RF erythromycin 5 mg/gram (0.5 %) ointment 1 applic BOTHEYES QID Qty: 3.5 0RF Hold Instructions: duplicate amlodipine 10 mg tablet 10 mg PO DAILY polymyxin B sulf-trimethoprim 10,000 unit- 1 mg/mL drops 1 drp BOTHEYES DIRECTED erythromycin 5 mg/gram (0.5 %) ointment 1 applic RIGHTEYE QID 7 Days Qty: 3.5 1RF Discontinued insulin glargine [Lantus U-100 Insulin] 100 unit/mL solution 100 unit subcut BID No Action diphenhydramine HCl [NightTime Sleep Aid (diphen)] 50 mg capsule 100 mg PO BEDTIME Did you review [place] CONTROL MANAGER for ALL controlled substances?: No Discussed opioids are addictive and Narcan is available by prescription or from pharmacy.: No Condition: Stable
--- NOTE | 2023-05-16 12:31 | DCSUM ---
Admission Date Admission Date: 05/12/23 Discharge Date Discharge Date: 05/16/23 Admission Diagnosis Admission Diagnosis: 1. Hyperkalemia 2. Weakness, Frequent Falls 3. Diabetes Mellitus, Type 2 4. Hypertension 5. Conjunctivitis 6. COPD Discharge Diagnosis Discharge Diagnosis: 1. Severe Hypoglycemia - Resolved 2. Hyperkalemia - Resolved 3. Weakness, Frequent Falls - Improving 4. Diabetes Mellitus, Type 2 - Chronic, now stable 5. Hypertension - Chronic, stable 6. Conjunctivitis - Improving, continue previously prescribed medications 7. COPD - Chronic, stable, on home 2L 8. Dehydration - Renal function stable 9. Confusion - early signs of dementia Hospital Provider Hospital Provider: CARLA FERRER, [facility] Primary Care Physician Primary Care Physician: [facility] STROUD Summary of History and Physical Summary of History and Physical: 77 yo male presented to the ER with weakness and fall from home. Today, patient slid out of chair into the floor and called for lift assist. Patient was found to be hypoglycemic and brought into the ER. states that he has not been able to walk well over the past couple months. Recently, he was setup with home health PT/OT but they have only been in the home to do the evaluation. Patient states he was told he has arthritis all over that is the cause of his pain and difficulty walking. Patient refuses longterm placement at this time, but would like to discuss other options if possible. Denies any fever, chills, sob, chest pain, n/v/d. Hospital Course Subjective: Initially, patient blood glucose continuing to drop after night time administration of lantus. reported patient has lost some weight and this has likely contributed to the decreased need for higher doses of lantus. Stopped BID lantus and is taking 60 units daily instead of 100 units BID or 60 units BID. Has tolerated well in addition to sliding scale insulin with meals. Potassium was high on admission but resolved the following day. Received IV fluids due to slight dehydration. Patient has CKD and renal function remained stable. No other changes made to home medications unless listed above. Patient was falling frequently at home and it was determined by all staff and that it was unsafe for him to return home in current condition. Became agreeable with plan for longterm for skilled rehab. Patient discharged to [facility]. Appearance: Pleasant, No Apparent Distress and Alert HEENT: MMM, Supple and No JVD CVS: No Murmur Abdomen: Soft, Non-Tender and No Distention Respiratory: No Dyspnea Extremities: Other (+2 edema, nonpitting) Vital Signs: Most Recent Vital Signs Temperature 98.6 F 05/16/23 05:54 Temperature Source Temporal Artery Scan 05/16/23 05:54 Temperature Source Infrared 05/12/23 13:39 Pulse Rate 97 05/16/23 05:54 Respiratory Rate 18 05/16/23 05:54 Blood Pressure 133/62 05/16/23 05:54 Blood Pressure Mean 85 05/16/23 05:54 Blood Pressure Right Arm 182/113 05/12/23 16:51 Blood Pressure Location Left Radial Artery 05/16/23 05:54 Blood Pressure Position Supine 05/16/23 05:54 O2 Sat by Pulse Oximetry 97 05/16/23 05:54 Oxygen Delivery Method Nasal Cannula 05/16/23 10:00 Oxygen Flow Rate 2 05/16/23 10:00 Height 5 ft 9 in 05/12/23 16:51 Weight 315 lb 05/12/23 16:51 Telemetry Type Remote Telemetry 05/16/23 07:00 Telemetry Monitoring Continues 05/16/23 07:00 Irregular Telemetry Rate (Approximate) 90-100 BPM 05/15/23 13:00 Telemetry Heart Rate 91 05/16/23 01:00 Telemetry SPO2 92 L 04/09/23 07:00 EKG IA Interval 0.14 05/16/23 07:00 EKG QRS Interval 0.14 H 05/16/23 07:00 Telemetry Strip Reading SR with BBB 05/16/23 07:00 Lab Results Last 24 Hours: 05/16/23 05:25 WBC 8.93 RBC 4.77 Hgb 14.5 Hct 46.7 MCV 97.9 H MCH 30.4 MCHC 31.0 L RDW Coeff of Krissy 13.3 Plt Count 230 Immature Gran % (Auto) 0.4 Neut % (Auto) 63.3 Lymph % (Auto) 24.0 [place] % (Auto) 9.5 Eos % (Auto) 2.5 Baso % (Auto) 0.3 Neut # (Auto) 5.7 Lymph # (Auto) 2.1 [place] # (Auto) 0.9 Eos # (Auto) 0.2 Baso # (Auto) 0.0 Immature Gran # (Auto) 0.0 Sodium 137.0 Potassium 3.70 Chloride 101.7 Carbon Dioxide 30.1 H Anion Gap 8.90 BUN 45.4 H Creatinine 1.77 H Estimated GFR (MDRD) 38.00 BUN/Creatinine Ratio 25.64 Glucose 138.6 H Calcium 8.85 Total Bilirubin 0.57 AST 19.2 ALT 18.6 Alkaline Phosphatase 63.0 Total Protein 6.97 Albumin 3.81 Globulin 3.16 Albumin/Globulin Ratio 1.20 Discharge Instructions Discharge Planning: Discharge Planning > 40 minutes If patient is discharged with left ventricular systolic dysfunction: NA Discharged with a beta jonathan? [] If no, why not? [] Discharged with an golden/arb? [] If no, why not? [] DX: HYPOGLYCEMIA SECONDARY TO DIABETIC AGENTS RX: LANTUS, REGULAR INSULIN SLIDING SCALE ADA DIET ACTIVITY TOLERATED PT/OT FOLLOW-UP WITH PCP NEXT WEEK Discharge Medications: Medications at Discharge (Home Meds & RX) albuterol sulfate 90 mcg/actuation aerosol inhaler (Ventolin HFA) 2 puff inhalation Q4H PRN Shortness Of Breath 10/31/21 lancets 30 gauge (Sure Comfort Lancets) #100 ea 08/08/22 insulin syringe-needle U-100 1 mL 31 gauge x 5/16" (BD Insulin Syringe Ultra- Fine) #100 packets 09/03/22 blood sugar diagnostic (Contour Next Test Strips) #100 ea 09/06/22 atorvastatin 40 mg tablet See Rx Instructions .Route .COMPLEX #30 tabs 10/07/22 bumetanide 0.5 mg tablet 0.5 mg PO BID 04/08/23 calcitriol 0.25 mcg capsule 0.25 mcg PO .COMPLEX 04/08/23 dapagliflozin propanediol 10 mg tablet (Farxiga) 10 mg PO DAILY 04/08/23 ergocalciferol (vitamin D2) 1,250 mcg (50,000 unit) capsule (Vitamin D2) 50,000 unit PO DAILY 04/08/23 fluticasone furoate 100 mcg-vilanterol 25 mcg/dose inhalation powder (Breo Ellipta) 1 inh inhalation DAILY 04/08/23 pantoprazole 40 mg tablet,delayed release (Protonix) 40 mg PO DAILY 04/08/23 tamsulosin 0.4 mg capsule 0.4 mg PO DAILY 04/08/23 tramadol 50 mg tablet 50 mg PO Q8H PRN pain 04/08/23 carvedilol 6.25 mg tablet (Coreg) 6.25 mg PO BID #60 tabs 04/09/23 losartan 50 mg-hydrochlorothiazide 12.5 mg tablet 1 tab PO DAILY #30 tabs 04/09/23 semaglutide 1 mg/dose (4 mg/3 mL) subcutaneous pen injector (Ozempic) 1 mg (0.75 mL) subcut WEEKLY DIABETIC #3 mL 04/09/23 erythromycin 5 mg/gram (0.5 %) eye ointment 1 applic BOTHEYES QID #3.5 grams 04/23/23 amlodipine 10 mg tablet 10 mg PO DAILY 04/30/23 erythromycin 5 mg/gram (0.5 %) eye ointment 1 applic RIGHTEYE QID 7 days #3.5 grams 04/30/23 polymyxin B sulfate 10,000 unit-trimethoprim 1 mg/mL eye drops 1 drp BOTHEYES DIRECTED 04/30/23 diphenhydramine HCl 50 mg capsule (NightTime Sleep Aid (diphenhydramine)) 100 mg PO BEDTIME 05/14/23 insulin glargine 100 unit/mL subcutaneous solution (Lantus U-100 Insulin) 60 unit (0.6 mL) subcut DAILY #100 mL 05/16/23 insulin regular human 100 unit/mL injection solution (Humulin R Regular U-100 Insulin) See Protocol subcut PRN PRN hyperglycemia #100 mL 05/16/23 Discharge Plan Discharge Discharge Orders: Discharge Patient (ONCE); Ordered 05/14/23 Ordered By: VINITA ORDOÑEZ Activity Restrictions/Additional Instructions: Discharge Today to [facility] Diabetic Diet Activity as tolerated Continue PT/OT Follow-up with PCP next week Medications: Lantus 60 units daily (New Prescription) Sliding scale insulin with meals: Glucose <150 No Insulin Glucose 151-200 3 Units Glucose 201-250 5 Units Glucose 251-300 7 Units Glucose 301-350 10 Units Glucose 351-400 12 Units Glucose >401 Call Provider Further Medications as listed on Discharge INstructions Care Plan Goals: Problem: Altered Blood Glucose Level Goal: Maintain blood glucose level Within Normal Limits Instructions: Diet as ordered Diet consult if indicated Monitor accucheck levels Monitor signs/symptoms of altered glucose Patient Disposition: TSF OTHER Did you review [place] SOFTWARE APPLICATIONS DESIGNER for ALL controlled substances?: No Discussed opioids are addictive and Narcan is available by prescription or from pharmacy.: No Condition: Stable
[2023-05-16 15:15] VITALS: BP 137/85; PULSE 92; TEMP 97
== END 2023-05-16 13:10 | disposition short-term general hospital (02) | DRG 645 ==
LOC: MEDSURG B 13:37 → ED 13:37 → MEDSURG B 16:42
PROVIDERS: ADMIT Hospitalist; ATTEND Nurse Practitioner Family
DX: R26.9 Unspecified abnormalities of gait and mobility; I10 Essential (primary) hypertension; E16.0 Drug-induced hypoglycemia without coma; J44.9 Chronic obstructive pulmonary disease, unspecified; I44.4 Left anterior fascicular block; M19.90 Unspecified osteoarthritis, unspecified site; Z79.4 Long term (current) use of insulin; E87.5 Hyperkalemia; Z90.5 Acquired absence of kidney; M25.78 Osteophyte, vertebrae; Z87.891 Personal history of nicotine dependence; I45.10 Unspecified right bundle-branch block; S09.90XA Unspecified injury of head, initial encounter; Z51.81 Encounter for therapeutic drug level monitoring; R29.6 Repeated falls; Z20.822 Contact with and (suspected) exposure to COVID-19; E11.65 Type 2 diabetes mellitus with hyperglycemia

== ENCOUNTER 2024-02-13 15:02 | Observation (INO) ==
[2024-02-13 15:50] LABS: BASOPHILS % (AUTO) 0.2 % (0.0-3.0); EOSINOPHILS % (AUTO) 0.2 % (0.0-7.0); HEMATOCRIT 45.3 % (42.0-52.0); IMMATURE GRANULOCYTE # (AUTO) 0.1 (0.0-1.0); IMMATURE GRANULOCYTE % (AUTO) 0.5 % (0.0-5.0); LYMPHOCYTES # (AUTO) 1.5 K/uL (0.60-3.4); LYMPHOCYTES % (AUTO) 12.2 (10.0-50.0); MEAN CORPUSCULAR HGB CONC 30.9 (31.8-35.4); MEAN CORPUSCULAR VOLUME 93.8 fl (80.0-94.0); MONOCYTES # (AUTO) 1.5 K/uL (0.4-2.0); MONOCYTES % (AUTO) 12.1 (0-10); NEUTROPHILS # (AUTO) 9.5 K/ul (2.0-6.9); NEUTROPHILS % (AUTO) 74.8 % (42.2-75.2); PLATELET COUNT 278 10^3/uL (140-440); RDW COEFFICIENT OF VARIATION 13.1 % (11.6-14.8); RED BLOOD COUNT 4.83 10^6/ul (4.70-6.10); WHITE BLOOD COUNT 12.64 K/ul (4.2-10.2)
[2024-02-13 16:02] LABS: ALBUMIN 3.59 g/dL (3.5-5.0); ALKALINE PHOSPHATASE 74.6 U/L (56-119); ASPARTATE AMINO TRANSFERASE 35.8 U/L (17-59); BILIRUBIN,TOTAL 0.75 mg/dL (0.2-1.3); BLOOD UREA NITROGEN 21.8 mg/dL (9-20); CALCIUM 8.53 mg/dL (8.4-10.2); CARBON DIOXIDE 29.4 mmol/L (22-30.0); CHLORIDE 99.3 mmol/L (98-107); CREATININE 1.59 mg/dL (0.60-1.10); GLUCOSE 127.8 mg/dL (74-106); POTASSIUM 4.15 mmol/L (3.5-5.1); SODIUM 134.8 mmol/L (134.5-145); TOTAL PROTEIN 7.19 g/dL (6.3-8.2)
[2024-02-13 16:24] LABS: TROPONIN I < 0.012 ng/ml (0.0000-0.120)
--- NOTE | 2024-02-13 16:28 | DI ---
EXAM: CHEST RADIOGRAPH TECHNIQUE: Single frontal chest radiograph. HISTORY: Cough for COMPARISON: 05/12/2023 FINDINGS: Significant opacification left hemithorax. The right lung is clear. No right effusion or pneumothor ax. Cardiac silhouette is obscured. Pulmonary vascular appears normal. Upper abdomen is unremarkab le. No acute bony abnormality. IMPRESSION: 1. Significant opacification of the left hemithorax. Likely due to a combination of pleural effusio n and atelectasis/infiltrate.
--- NOTE | 2024-02-13 16:37 | ED.PDOC ---
General ED Provider: Dr. LARY SHIRLEY, DO Chief Complaint: Chest Pain Stated Complaint: Patient is actually not complaining of chest pain but more shaking. Patient has a history of COPD, has a strong smell of urine. Brought in by ambulance initial call was for chest pain however on arrival I will say the patient is not the best historian but currently without pain positive cough no abdominal pain no fever chills at home. Patient smells of urine does state that he pees all the time. She was able to supply some information but not a lot. Does say he has been eating and drinking normal and that he is not quite himself the last couple days Time Seen by Provider: 02/13/24 15:22 Mode of Arrival: Ambulance Information Source: Patient and EMT Exam Limitations: Other (Patient poor historian) Primary Care Provider: [facility] STROUD Nursing and Triage Documentation Reviewed and Agree: Yes What is Opioid Naive?: *Opioid Naive implies the patient is not already taking opioids or not chronically receiving opioids on a daily basis. *PRN dosing is not "usually" associated with tolerance. *Patients are at higher risk of over-sedation and aspiration. What is Opioid Tolerant?: *Opioid Tolerance implies less than the expected response to an opioid. *Acquired tolerance is defined by the patient taking 60mg of oral morphine daily (or equianalgesic dose of another opioid) for 1 week or more. *Often associated with chronic pain. *May take more than usual dose to achieve desired pain control. Review of Systems Review Of Systems Constitutional: Reports No symptoms Eyes: Reports No symptoms Ears, Nose, Mouth, Throat: Reports No symptoms Respiratory: Reports Cough and Other (Requires home O2); Denies Stridor or Wheezing Cardiac: Denies Edema, Irregular heart rate, Lightheadedness, Palpitations or Syncope GI: Reports No symptoms : Reports No symptoms Musculoskeletal: Reports No symptoms Skin: Reports No symptoms Neurological: Reports No symptoms Endocrine: Reports No symptoms All Other Systems: Reviewed and Negative [facility] Medical History Right knee pain M25.561 - Pain in right knee (ICD-10) History of smoking quit 05/2021 Z87.891 - Personal history of nicotine dependence (ICD-10) Hypertension I10 - Essential (primary) hypertension (ICD-10) Hyperlipidemia for years E78.5 - Hyperlipidemia, unspecified (ICD-10) Atherosclerosis of coronary artery for a few years I25.10 - Atherosclerotic heart disease of [place] coronary artery without angina pectoris (ICD-10) Diabetes mellitus for years E11.9 - Type 2 diabetes mellitus without complications (ICD-10) Family History Mother No problems noted. FATHER Cerebrovascular accident BROTHER Diabetes Social History Smoking and tobacco status: Former smoker Alcohol intake: former Substance use type: does not use Water heater temperature set < 120 degrees: Yes Working smoke detector in home: Yes Fire extinguisher in home: Yes Carbon monoxide detector in home: Yes Surgical History H/O shoulder surgery left Z98.89 - Other specified postprocedural states (ICD-10) H/O kidney removal Z90.5 - Acquired absence of kidney (ICD-10) History of musculoskeletal system surgery Rotator cuff repair left shoulder Z98.890 - Other specified postprocedural states (ICD-10) Kidney excision left kidney removed 1 years ago Physical Exam Physical Exam Appearance: Reports Ill-appearing, No pain distress and Other (Strong smell of urine) Ill-appearing: Moderate Eyes: Reports JUAN ENT: Reports Ears normal, Nose normal and Oropharynx normal Neck: Supple Respiratory: Reports Airway patent, Breath sounds clear and Respirations nonlabored Cardiovascular: Reports No rub, No murmur and Tachycardia; Denies Irregular rhythm GI/: Reports Soft, Nontender and Other (Obese) Musculoskeletal: Reports Normal strength, ROM intact and No edema (1-2+ pitting edema bilateral lower extremities) Skin: Reports Warm, Dry and Normal color Neurological: Reports Sensation intact, Motor intact and Oriented (Oriented x 2) Interpretation EKG Interpretation Time of EKG #1: 15:30 Rate: Tachy Clymer: Right Interpretation: Motion artifact, right bundle branch, nonspecific T wave, no STEMI Radiology Interpretation Radiology Interpretation By: ED Physician Radiology Results: Positive (White out left side) Exam Interpreted: Portable CXR Xray Comments: Will get CT Re-Evaluation Re-Evaluation Time of Re-Evaluation: 16:30 Status: Unchanged Vital Signs Stable: Yes Additional Comments: Troponin and BNP normal elevated white count normal lactic x-ray shows near whiteout left start on ceftriaxone azithromycin and fluid Critical Care Note Critical Care Note Total Critical Care Time (mins): 40 Comments: I was called to the bedside for urgent evaluation of the patient for an apparent life-threatening event. I arrived to find the patient tacky, slightly altered, multiple complaints During my initial evaluation I found the patient to be critically Ill and in need of my immediate attention to prevent further deterioration of their condition More than one body system was considered at risk with todays visit. The following are the primary systems identified: Cardiac, respiratory, metabolic During the patients ED visit I repeated re-evaluated the patient and their clinical condition reviewed laboratory testing and radiology images and intervening when needed. Initiated fluid antibiotics and cardiac workup As a result of the patients clinical condition and presenting problem I arranged for admission The total amount of my Critical Care time during the patients course in the ED was a minimum of 40 minutes, this excluded any time spent on other services or procedures Course Course 02/13/24 15:43 02/13/24 15:43 Orders, Labs, Meds: Lab Review 02/13/24 02/13/24 15:43 16:03 WBC 12.64 H RBC 4.83 Hgb 14.0 Hct 45.3 MCV 93.8 MCH 29.0 MCHC 30.9 L RDW Coeff of Krissy 13.1 Plt Count 278 Immature Gran % (Auto) 0.5 Neut % (Auto) 74.8 Lymph % (Auto) 12.2 [place] % (Auto) 12.1 H Eos % (Auto) 0.2 Baso % (Auto) 0.2 Neut # (Auto) 9.5 H Lymph # (Auto) 1.5 [place] # (Auto) 1.5 Eos # (Auto) 0.0 Baso # (Auto) 0.0 Immature Gran # (Auto) 0.1 Sodium 134.8 Potassium 4.15 Chloride 99.3 Carbon Dioxide 29.4 Anion Gap 10.25 BUN 21.8 H Creatinine 1.59 H Estimated GFR (MDRD) 43.00 BUN/Creatinine Ratio 13.71 Glucose 127.8 H Lactic Acid 0.87 Calcium 8.53 Total Bilirubin 0.75 AST 35.8 ALT 19.0 Alkaline Phosphatase 74.6 Troponin I < 0.012 NT-Pro-B Natriuret Pep 317 H Total Protein 7.19 Albumin 3.59 Globulin 3.60 Albumin/Globulin Ratio 0.99 TSH 1.290 Influ A Molecular Assay Negative by naat Influ B Molecular Assay Negative by naat SARS CoV-2 RNA Rapid SALTY Negative Orders Category Date Time Status PLACE PATIENT OBSERVATION .TO MEDSURG (MONITORED BED ADMISSION 02/13/24 17:22 Active ) EKG-(ED ONLY) Stat CARDIO 02/13/24 15:36 Completed TELEMETRY MONITORING TELE CARE 02/13/24 17:16 Active TELEMETRY MONITORING TELE CARE 02/13/24 17:22 Active ED APPLY O2 .ONCE EMERGENCY 02/13/24 15:36 Active ED SERVICE UNIT OPERATOR OIL WELL APPLIED .ONCE EMERGENCY 02/13/24 15:36 Active BLOOD CULTURE (ED ONLY) Stat LAB 02/13/24 16:40 Received CBC W/ AUTO DIFF Stat LAB 02/13/24 15:43 Completed COMPREHENSIVE METABOLIC PANEL Stat LAB 02/13/24 15:43 Completed COVID [SARS COV-2 RNA RAPID SALTY] Stat LAB 02/13/24 16:03 Completed FLU A & B MOLECULAR [FLU A/B MOLECULAR] Stat LAB 02/13/24 16:03 Completed LACTIC ACID Stat LAB 02/13/24 15:43 Completed NT-PROBNP(ED) Stat LAB 02/13/24 15:43 Completed THYROID STIMULATING HORMONE Stat LAB 02/13/24 15:43 Completed TROPONIN I Stat LAB 02/13/24 15:43 Completed UA [URINALYSIS C & S IF INDICATED] Stat LAB 02/13/24 15:33 Uncollected Azithromycin [Zithromax] Meds 02/13/24 16:26 Discontinued 500 mg PO ONCE ONE Ceftriaxone 1 gm Vial [Rocephin 1 gm Vial] Meds 02/13/24 16:26 Discontinued 1 gm IVP ONCE ONE Sodium Chloride 0.9% [Sodium Chloride] 1,000 ml Meds 02/13/24 16:26 Discontinued IV BOLUS RESUSCITATION STATUS Routine OTHERS 02/13/24 17:15 Ordered CHEST, 1V AP ONLY Stat RADS 02/13/24 15:[address] CHEST W/O CONTRAST Stat RADS 02/13/24 16:12 Completed Medications Generic Name Dose Route Start Last Admin Trade Name Freq PRN Reason Stop Dose Admin Albuterol Sulfate 2 puff 02/13/24 17:47 Albuterol Sulfate 8 Gm Inhaler IH Q4-6H PRN Wheezing Amlodipine Besylate 10 mg 02/14/24 06:00 Amlodipine Besylate 5 Mg Tablet PO QDAY ESTEBAN Atropine Sulfate 1 drop 02/13/24 21:00 Atropine Sulfate Opth 5 Ml Deja RIGHTEYE BID ESTEBAN Brimonidine Tartrate 1 drop 02/13/24 21:00 Brimonidine Tartrate 0.2% 5 Ml Btl RIGHTEYE TID ESTEBAN Bumetanide 0.5 mg 02/14/24 09:00 Bumetanide 1 Mg Tablet PO BID ESTEBAN Carvedilol 3.125 mg 02/13/24 21:00 Carvedilol 3.125 Mg Tablet PO BID ESTEBAN Insulin Glargine 60 unit 02/13/24 21:00 Insulin Glargine,Hum.Rec.Anlog 100 Units/Ml SUBCUT BID ESTEBAN Non-Formulary Medication 1 inh 02/13/24 18:00 Fluticasone Furoate-Vilanterol [Breo Ellipta] IH Q24H ESTEBAN Non-Formulary Medication 1 drop 02/13/24 21:00 Timolol OP BID ESTEBAN Nystatin 1 applic 02/13/24 21:00 Nystatin 15 Gm Cream TP BID ESTEBAN Pantoprazole Sodium 40 mg 02/14/24 06:00 Pantoprazole Sodium 40 Mg Tablet. PO QDAY ESTEBAN Tamsulosin HCl 0.4 mg 02/13/24 18:00 Tamsulosin Hcl 0.4 Mg Cap.Er.24h PO QDAY ESTEBAN Discontinued Medications Generic Name Dose Route Start Last Admin Trade Name Freq PRN Reason Stop Dose Admin Azithromycin 500 mg 02/13/24 16:26 02/13/24 16:52 Azithromycin 250 Mg Tablet PO 02/13/24 16:27 500 mg ONCE ONE Administration Ceftriaxone Sodium 1 gm 02/13/24 16:26 02/13/24 16:52 Ceftriaxone 1 Gm Vial IVP 02/13/24 16:27 1 gm ONCE ONE Administration Sodium Chloride 1,000 mls @ 1,000 mls/hr 02/13/24 16:26 02/13/24 16:52 Sodium Chloride IV 02/13/24 17:25 1,000 mls/hr BOLUS ONE Administration Vital Signs: Temp Pulse Resp BP Pulse Ox O2 Flow Rate 02/13/24 15:51 2 02/13/24 15:07 97.8 F 112 H 20 146/99 H 93 L Shortly after interviewing and examining the patient, treatment was initiated. Orders were placed for appropriate testing and treatment specific to my findings, appropriate guidelines and the patients complaint (please see physician order section of this chart). Based on the patients chief complaint, and information gathered so far, the following diagnosis were considered. This list is not exhaustive. I infectious causes such as UTI, Pneumonia, . Metabolic, such as hyper/hypoglycemia, electrolyte abnormalities, hepatic encephalopathy. Cardiac; AMI, hypotension, cardiac failure. Discharge Plan Discharge Patient Disposition: PLACED OBSERVATION Discharge Problem: Mass of left lung COPD (chronic obstructive pulmonary disease) Qualifiers: COPD type: unspecified COPD Qualified Code(s): J44.9 - Chronic obstructive pulmonary disease, unspecified CAP (community acquired pneumonia) Qualifiers: Laterality: left Lung location: unspecified part of lung Qualified Code(s): J 18.9 - Pneumonia, unspecified organism Did you review [place] [employer] for ALL controlled substances?: Not Applicable ED Provider: LARY SHIRLEY Condition: Stable Physician Progress Note: CT scan is concerning for both pneumonia and effusion but also left lung mass. This was communicated to the Case discussed with hospitalist DAPHNEY alejo for now. Patient will likely need a CT scan with contrast however at present we will initiate ceftriaxone and azithromycin for pneumonia. Patient has been hydrating. Will get cultures. During the patients stay in the Emergency Department, and after a physical exam focused on the patients chief complaint. I have concluded that the patients condition warrants inpatient admission/observation at this time. This decision was made in conjunction with testing done in the ED and after discussing the need for admission with the patient and any family present. This decision was made in conjunction with any testing done, physical exam and information provided by the patient and any family present. I took into consideration discharge but feel that either the patients condition, social supports, access to aftercare, and/or safety justify admission at this time. I have discussed this case with the admitting physician Care was assumed by admitting provider at the time the admission request was placed. I was available for emergencies after that point or if specifically identified here: none This chart was completed using voice recognition dictation software. Please excuse any errors of composition teacher including grammatical, punctuation and spelling errors. Please contact me with any questions regarding this chart 1755 informed by nursing that the patient bladder scan had less than 20 mL no catheter at this point. And that he does have what appears to be a candidal rash in his groin in the folds of his inguinal area. Will start on nystatin powder
[2024-02-13 16:41] LABS: MOLECULAR FLU A NEGATIVE BY NAAT (NEGATIVE); SARS COV-2 RNA RAPID NAAT NEGATIVE (NEGATIVE)
[2024-02-13 16:42] LABS: MOLECULAR FLU B NEGATIVE BY NAAT (NEGATIVE)
[2024-02-13] MEDS: ZITHROMAX PO ONE (16:52)
[2024-02-13] MEDS: SODIUM CHLORIDE 1,000 ML IV ONE (16:52)
[2024-02-13] MEDS: ROCEPHIN 1 GM VIAL IVP ONE (16:52)
--- NOTE | 2024-02-13 17:08 | CT ---
EXAM: CHEST CT WITHOUT CONTRAST HISTORY: Abnormal chest x-ray. TECHNIQUE: CT acquisition of the chest from the thoracic inlet to the upper abdomen without IV contra st administration. 2-D coronal and sagittal reformatted images were obtained from the axial source i mages. CT Dose Reduction Techniques Performed: Yes. IV Contrast: None. COMPARISON: Chest x-ray 02/13/[address] of the chest 03/07/2021. FINDINGS: Lines, Tubes, Devices: None. Lung Parenchyma and Airways: Narrowing of the left mainstem bronchus and branches. Large soft tissue density in the left lung extending from the hilum to the chest wall and in the lung apex to the diap hragm measuring 21 cm in length and 16 x 9 cm in cross section. Subsegmental atelectasis of the bila teral lung bases. Pleural Space: Moderate left effusion. Mediastinum and Dena: Lobulated mass-like density in the left hilum. Numerous pathologically enlarge d mediastinal and left hilar nodes. Heart and Pericardium: Heart is not enlarged. No significant valvular calcifications. Mild coronary artery calcifications, however exam is not optimized for evaluation. No pericardial effusion or thi ckening. Vessels: Aorta is normal in caliber with mild atherosclerotic calcifications. Main pulmonary artery is normal in caliber. Bones: No fracture, lytic lesion, or blastic lesion. Moderate spondylosis and degenerative disc dise ase. There is flowing ossification along the anterolateral aspect of contiguous lower thoracic verte bral bodies, with preservation of disk height consistent with diffuse idiopathic skeletal hyperostosi s (DISH) Soft Tissues: Mild bilateral gynecomastia. Upper Abdomen: The left kidney is surgically absent. IMPRESSION: 1. Large soft tissue mass-like density in the left lung as described above, some of which may repres ent atelectasis. Evaluation is limited without intravenous contrast. There is significant pathologic mediastinal and left hilar adenopathy. Findings are concerning for malignancy. Moderate left effusion. All CT scans are performed using dose optimization techniques as appropriate to the performed exam an d include at least one of the following: Automated exposure control, adjustment of the mA and/or kV according t o size, and the use of iterative reconstruction technique.
[2024-02-13] MEDS ORDERED: VENTOLIN HFA IH PRN (17:47)
[2024-02-13] MEDS ORDERED: DUONEB NEB PRN (18:07)
[2024-02-13] MEDS ORDERED: TYLENOL PO PRN (18:07)
[2024-02-13] MEDS ORDERED: ZOFRAN 4 MG/2 ML IVP PRN (18:07)
[2024-02-13] MEDS: NYSTATIN CREAM TP SCH (20:06)
[2024-02-13] MEDS: SYMBICORT 80-4.5 MCG INHALER IH SCH (20:07)
[2024-02-13] MEDS: TIMOPTIC 0.5% OPTH EACHEYE SCH (20:07)
[2024-02-13] MEDS: BRIMONIDINE TARTRATE 0.2% OPTH SOL EACHEYE SCH (20:07)
[2024-02-13] MEDS: ISOPTO ATROPINE EACHEYE SCH (20:07)
[2024-02-13] MEDS: LANTUS SUBCUT SCH (20:19)
[2024-02-13] MEDS: NYSTOP POWDER TP SCH (20:30)
[2024-02-13 20:55] VITALS: BMI 40.8
[2024-02-13] MEDS ORDERED: LANTUS SUBCUT SCH (21:00)
[2024-02-14 01:33] LABS: BILIRUBIN,URINE Negative (NEGATIVE); CLARITY,URINE Clear (CLEAR); COLOR,URINE Yellow (YELLOW); KETONES,URINE Negative (NEGATIVE); LEUKOCYTE ESTERASE ,URINE Negative (NEGATIVE); NITRITE,URINE Negative (NEGATIVE); PH,URINE 5.5 (5-9); PROTEIN,URINE Negative (NEGATIVE); URINE, BLOOD Negative (NEGATIVE)
[2024-02-14 01:36] LABS: GLUCOSE, URINE (UA) 3+ (NEGATIVE)
[2024-02-14 01:39] LABS: SQUAMOUS EPITHELIAL CELL,UR 0-2 (0-5)
[2024-02-14] MEDS: PROTONIX PO SCH (05:02)
[2024-02-14] MEDS: NORVASC PO SCH (05:02)
[2024-02-14 05:08] LABS: BASOPHILS % (AUTO) 0.2 % (0.0-3.0); EOSINOPHILS % (AUTO) 0.3 % (0.0-7.0); HEMATOCRIT 42.2 % (42.0-52.0); HEMOGLOBIN 13.1 g/dl (14.0-18.0); IMMATURE GRANULOCYTE % (AUTO) 0.3 % (0.0-5.0); LYMPHOCYTES # (AUTO) 1.6 K/uL (0.60-3.4); LYMPHOCYTES % (AUTO) 13.5 (10.0-50.0); MEAN CORPUSCULAR HEMOGLOBIN 29.2 pg (27.0-31.0); MEAN CORPUSCULAR VOLUME 94.2 fl (80.0-94.0); MONOCYTES # (AUTO) 1.5 K/uL (0.4-2.0); MONOCYTES % (AUTO) 12.8 (0-10); NEUTROPHILS # (AUTO) 8.4 K/ul (2.0-6.9); NEUTROPHILS % (AUTO) 72.9 % (42.2-75.2); PLATELET COUNT 255 10^3/uL (140-440); RDW COEFFICIENT OF VARIATION 13.1 % (11.6-14.8); RED BLOOD COUNT 4.48 10^6/ul (4.70-6.10); WHITE BLOOD COUNT 11.59 K/ul (4.2-10.2)
[2024-02-14 05:22] LABS: ALANINE AMINOTRANSFERASE 16.7 U/L (0-50); ALBUMIN 3.29 g/dL (3.5-5.0); ALKALINE PHOSPHATASE 69.3 U/L (56-119); ASPARTATE AMINO TRANSFERASE 32.9 U/L (17-59); BILIRUBIN,TOTAL 0.56 mg/dL (0.2-1.3); BLOOD UREA NITROGEN 21.4 mg/dL (9-20); CALCIUM 8.29 mg/dL (8.4-10.2); CARBON DIOXIDE 32.7 mmol/L (22-30.0); CHLORIDE 102.6 mmol/L (98-107); CREATININE 1.38 mg/dL (0.60-1.10); GLUCOSE 79.3 mg/dL (74-106); POTASSIUM 3.92 mmol/L (3.5-5.1); SODIUM 137.9 mmol/L (134.5-145); TOTAL PROTEIN 6.79 g/dL (6.3-8.2)
[2024-02-14] MEDS: VISIPAQUE 320 MG/ML 100ML IVP ONE (06:20)
--- NOTE | 2024-02-14 07:05 | CT ---
EXAM: CTA OF THE CHEST. History: Left lung mass. Comparison: Chest CT without contrast 02/13/2024 Technique: Multiplanar CT images through the thorax were obtained following administration of IV con trast. MIP images and 3-D reconstructions were also acquired. FINDINGS: Heart size is mildly enlarged. Small pericardial effusion. No thoracic aortic aneurysm. No pulmonary arterial filling defects identified within limitations of the motion artifact. Coronary calcifications. No change in the mediastinal and subcarinal malignant/metastatic lymphadenopathy. No change in the large left lung mass which is narrowing the left-sided bronchi especially centrally. There is postobstructive left lung atelectasis and pneumonia and persistent left pleural effusion. No pneumothorax. Within the visualized upper abdomen, no acute findings. No acute osseous abnormalities. Impression: 1. No pulmonary embolism. 2. No change in the large left lung mass which is narrowing the left-sided bronchi most notable cent rally. 3. No change in the malignant/metastatic intrathoracic lymphadenopathy. 4. Left pleural effusion. 5. Postobstructive atelectasis and pneumonia within the left lung All CT scans are performed using dose optimization techniques as appropriate to the performed exam an d include at least one of the following: Automated exposure control, adjustment of the mA and/or kV according t o size, and the use of iterative reconstruction technique.
[2024-02-14] MEDS ORDERED: ZITHROMAX PO SCH (09:00)
[2024-02-14] MEDS: ROCEPHIN 1 GM/50 ML D5W 1 GM/50 ML BAG IV SCH (09:00)
[2024-02-14] MEDS: COREG PO SCH (09:45)
[2024-02-14] MEDS: BUMEX PO SCH (09:46)
[2024-02-14] MEDS: FLOMAX PO SCH (09:47)
[2024-02-14] MEDS: BRIMONIDINE TARTRATE 0.2% OPTH SOL EACHEYE SCH (09:49)
[2024-02-14 10:54] VITALS: BP 113/70; RESP 20; TEMP 98
--- NOTE | 2024-02-14 11:10 | PCM.SS ---
Provider Provider: SANDR[facility]REY [facility]-C[facility] Ad[facility] Date Admission Date: 02/13/24 Discharge Date Discharge Date: 02/14/24 Primary Care Physician Primary Care Physician: DUKE STROUD Chief Complaint Reason For Visit: TACHYCARDIA, COPD, PNEUMONIA, L LUNG MASS History of Present Illness History of Present Illness: Admitted 02/13/24 17:41, this 78 year old /WHITE/M with pmhx of DMT2, CKD, hyperlipidemia, chronic respiratory failure/COPD, obesity, BPH who presents to ER with complaint of left sided chest pain just prior to arrival. Patient is on his baseline 2L. He denies worsening sob, cough, blood in sputum. States he sometimes wakes up sweaty. He's unsure if he's lost any weight. Labs overall unremarkable except for his chronic baseline CKD. CXR showed significant abnormality of left lung. CT chest w/o showed large lung mass on left side, 21 cm in length and 16x9 cm cross section. Limited by no contrast. CTA chest done this morning showing same findings and post obstructive pna. Pt abx changed from rocephin/azith to zosyn. Discussed in depth with patient and his , and Celestina WONG, also present in room regarding the concern for lung cancer and how important follow up will be. Discussed with Dr. Bland, [facility] oncology via phone. I am concerned about the overall size of this mass. However patient is not coughing up blood, not in any respiratory distress. He really doesn't even endorse more SOB than his baseline. Vitals are stable except for very mild tachycardia of 100-105. He recommends getting a ct a/p w/o today since he's already had contrast to help expedite the work up somewhat. Otherwise he will need to be seen outpatient by them and a pulmonology referral. With it being the weekend, a message was left for case management/perinatal social worker to please send referrals to [facility] oncology and pulmonology and ensure pcp f/u. Patient and are agreeable to home health as well. Patient states he feels at his baseline, is not having any chest pain, and is requesting to go home. Will send home on augmentin to cover post obstructive PNA. And again reiterated the importance of close f/u. Patient and are historically very noncompliant. [facility] Medical History Right knee pain M25.561 - Pain in right knee (ICD-10) History of smoking quit 05/2021 Z87.891 - Personal history of nicotine dependence (ICD-10) Hypertension I10 - Essential (primary) hypertension (ICD-10) Hyperlipidemia for years E78.5 - Hyperlipidemia, unspecified (ICD-10) Atherosclerosis of coronary artery for a few years I25.10 - Atherosclerotic heart disease of [place] coronary artery without angina pectoris (ICD-10) Diabetes mellitus for years E11.9 - Type 2 diabetes mellitus without complications (ICD-10) Surgical History H/O shoulder surgery left Z98.89 - Other specified postprocedural states (ICD-10) H/O kidney removal Z90.5 - Acquired absence of kidney (ICD-10) History of musculoskeletal system surgery Rotator cuff repair left shoulder Z98.890 - Other specified postprocedural states (ICD-10) Kidney excision left kidney removed 1 years ago Family History Mother No problems noted. FATHER Cerebrovascular accident BROTHER Diabetes Social History Smoking and tobacco status: Former smoker Alcohol intake: former Substance use type: does not use Water heater temperature set < 120 degrees: Yes Working smoke detector in home: Yes Fire extinguisher in home: Yes Carbon monoxide detector in home: Yes Medications Mecications: Medications at Discharge (Home Meds & RX) albuterol sulfate 90 mcg/actuation aerosol inhaler 2 puff inhalation Q4-6H PRN shortness of breath or wheezing 12/29/23 amlodipine 10 mg tablet 10 mg PO QDAY 12/29/23 atropine 1 % eye drops 1 drp BOTHEYES BID 12/29/23 brimonidine 0.2 % eye drops 1 drp BOTHEYES TID 12/29/23 bumetanide 0.5 mg tablet 0.5 mg PO BID 12/29/23 calcitriol 0.25 mcg capsule 0.25 mcg PO QDAY 12/29/23 carvedilol 3.125 mg tablet 3.125 mg PO BID 12/29/23 cholecalciferol (vitamin D3) 1,250 mcg (50,000 unit) capsule 1,250 mcg PO QWEEK 12/29/23 dapagliflozin propanediol 10 mg tablet (Farxiga) 10 mg PO QDAY 12/29/23 fluticasone furoate 100 mcg-vilanterol 25 mcg/dose inhalation powder (Breo Ellipta) 1 inh inhalation Q24H 12/29/23 insulin glargine 100 unit/mL subcutaneous solution (Lantus U-100 Insulin) 60 unit subcut BID 12/29/23 pantoprazole 40 mg tablet,delayed release 40 mg PO QDAY 12/29/23 semaglutide 1 mg/dose (4 mg/3 mL) subcutaneous pen injector (Ozempic) 1 mg subcut QWEEK 12/29/23 tamsulosin 0.4 mg capsule 0.4 mg PO QDAY 12/29/23 timolol 0.5 % eye drops 1 drp BOTHEYES BID 12/29/23 Allergies Allergies Allergy/AdvReac Type Severity Reaction Status Date / Time No Known Allergies Allergy Verified 02/13/24 15:13 Review of Systems Constitutional: Reports Weakness; Denies Fever Head: Reports Normocephalic and Atraumatic Cardiovascular: Reports Chest pain; Denies Edema Respiratory: Denies Cough or Shortness of air Gastrointestinal: Denies Nausea, Vomiting, Diarrhea, Abdominal pain or Melena Physical Examination Appearance: Positive No Apparent Distress, Alert and Oriented x3, Obese and Other (Poor hygiene ) Head: Positive Normocephalic and Atraumatic Neck: Positive Supple and Trachea Midline Heart: Positive RRR Respiratory: Positive Respirations Nonlabored and Other (decreased air movement noted of left lung ) GI/: Positive Soft, Nontender and Bowel sounds normal Extremities: Positive Edema (1+ pitting edema christie lower ext ) Neurological: Positive Cranial nerves intact, Alert and Oriented Psychiatric: Positive Affect Appropriate, Mood Appropriate and Other (poor insight into medical problems ); Negative Normal Judgement or Normal Insight Vital Signs (Last 4 Hours) Vital Signs Last 4 Hours: Vital Signs: Last 4 Hours 02/14/24 08:00 02/14/24 09:00 02/14/24 10:00 Temperature Temperature Source Pulse Rate Respiratory Rate Blood Pressure Blood Pressure Mean Blood Pressure Location Blood Pressure Position O2 Sat by Pulse Oximetry 93 L Oxygen Delivery Method Nasal Cannula Nasal Cannula Nasal Cannula Oxygen Flow Rate 2.5 02/14/24 10:00 02/14/24 10:00 Temperature 98 F Temperature Source Temporal Artery Scan Pulse Rate 101 H Respiratory Rate 20 Blood Pressure 113/70 Blood Pressure Mean 84 Blood Pressure Location Left Arm Blood Pressure Position Sitting O2 Sat by Pulse Oximetry 92 L Oxygen Delivery Method Nasal Cannula Nasal Cannula Oxygen Flow Rate 2 Labs This Visit Labs This Visit: Labs This Visit 02/13/24 02/13/24 02/14/24 15:43 16:03 01:21 WBC 12.64 H RBC 4.83 Hgb 14.0 Hct 45.3 MCV 93.8 MCH 29.0 MCHC 30.9 L RDW Coeff of Krissy 13.1 Plt Count 278 Immature Gran % (Auto) 0.5 Neut % (Auto) 74.8 Lymph % (Auto) 12.2 Fisher % (Auto) 12.1 H Eos % (Auto) 0.2 Baso % (Auto) 0.2 Neut # (Auto) 9.5 H Lymph # (Auto) 1.5 Fisher # (Auto) 1.5 Eos # (Auto) 0.0 Baso # (Auto) 0.0 Immature Gran # (Auto) 0.1 Sodium 134.8 Potassium 4.15 Chloride 99.3 Carbon Dioxide 29.4 Anion Gap 10.25 BUN 21.8 H Creatinine 1.59 H Estimated GFR (MDRD) 43.00 BUN/Creatinine Ratio 13.71 Glucose 127.8 H Lactic Acid 0.87 Calcium 8.53 Total Bilirubin 0.75 AST 35.8 ALT 19.0 Alkaline Phosphatase 74.6 Troponin I < 0.012 NT-Pro-B Natriuret Pep 317 H Total Protein 7.19 Albumin 3.59 Globulin 3.60 Albumin/Globulin Ratio 0.99 TSH 1.290 Urine Color Yellow Urine Clarity Clear Urine pH 5.5 Ur Specific [place] 1.015 Urine Protein Negative Urine Glucose (UA) 3+ H Urine Ketones Negative Urine Blood Negative Urine Nitrite Negative Urine Bilirubin Negative Urine Urobilinogen 1.0 H Ur Leukocyte Esterase Negative Ur Squamous Epith Cells 0-2 Influ A Molecular Assay Negative by naat Influ B Molecular Assay Negative by naat SARS CoV-2 RNA Rapid SALTY Negative 02/14/24 05:03 WBC 11.59 H RBC 4.48 L Hgb 13.1 L Hct 42.2 MCV 94.2 H MCH 29.2 MCHC 31.0 L RDW Coeff of Krissy 13.1 Plt Count 255 Immature Gran % (Auto) 0.3 Neut % (Auto) 72.9 Lymph % (Auto) 13.5 Fisher % (Auto) 12.8 H Eos % (Auto) 0.3 Baso % (Auto) 0.2 Neut # (Auto) 8.4 H Lymph # (Auto) 1.6 Fisher # (Auto) 1.5 Eos # (Auto) 0.0 Baso # (Auto) 0.0 Immature Gran # (Auto) 0.0 Sodium 137.9 Potassium 3.92 Chloride 102.6 Carbon Dioxide 32.7 H Anion Gap 6.52 BUN 21.4 H Creatinine 1.38 H Estimated GFR (MDRD) 50.00 BUN/Creatinine Ratio 15.50 Glucose 79.3 Lactic Acid Calcium 8.29 L Total Bilirubin 0.56 AST 32.9 ALT 16.7 Alkaline Phosphatase 69.3 Troponin I NT-Pro-B Natriuret Pep Total Protein 6.79 Albumin 3.29 L Globulin 3.50 Albumin/Globulin Ratio 0.94 TSH Urine Color Urine Clarity Urine pH Ur Specific [place] Urine Protein Urine Glucose (UA) Urine Ketones Urine Blood Urine Nitrite Urine Bilirubin Urine Urobilinogen Ur Leukocyte Esterase Ur Squamous Epith Cells Influ A Molecular Assay Influ B Molecular Assay SARS CoV-2 RNA Rapid SALTY Imaging Imaging: EXAM: CHEST RADIOGRAPH TECHNIQUE: Single frontal chest radiograph. HISTORY: Cough for COMPARISON: 05/12/2023 FINDINGS: Significant opacification left hemithorax. The right lung is clear. No right effusion or pneumothorax. Cardiac silhouette is obscured. Pulmonary vascular appears normal. Upper abdomen is unremarkable. No acute bony abnormality. IMPRESSION: 1. Significant opacification of the left hemithorax. Likely due to a combination of pleural effusion and atelectasis/infiltrate. EXAM: CHEST CT WITHOUT CONTRAST HISTORY: Abnormal chest x-ray. TECHNIQUE: CT acquisition of the chest from the thoracic inlet to the upper abdomen without IV contrast administration. 2-D coronal and sagittal reformatted images were obtained from the axial source images. CT Dose Reduction Techniques Performed: Yes. IV Contrast: None. COMPARISON: Chest x-ray 02/13/[address] of the chest 03/07/2021. FINDINGS: Lines, Tubes, Devices: None. Lung Parenchyma and Airways: Narrowing of the left mainstem bronchus and branche s. Large soft tissue density in the left lung extending from the hilum to the chest wall and in the lung apex to the diaphragm measuring 21 cm in length and 16 x 9 cm in cross section. Subsegmental atelectasis of the bilateral lung bases. Pleural Space: Moderate left effusion. Mediastinum and Dena: Lobulated mass-like density in the left hilum. Numerous pathologically enlarged mediastinal and left hilar nodes. Heart and Pericardium: Heart is not enlarged. No significant valvular calcifications. Mild coronary artery calcifications, however exam is not optimized for evaluation. No pericardial effusion or thickening. Vessels: Aorta is normal in caliber with mild atherosclerotic calcifications. Main pulmonary artery is normal in caliber. Bones: No fracture, lytic lesion, or blastic lesion. Moderate spondylosis and degenerative disc disease. There is flowing ossification along the anterolateral aspect of contiguous lower thoracic vertebral bodies, with preservation of disk height consistent with diffuse idiopathic skeletal hyperostosis (DISH) Soft Tissues: Mild bilateral gynecomastia. Upper Abdomen: The left kidney is surgically absent. IMPRESSION: 1. Large soft tissue mass-like density in the left lung as described above, some of which may represent atelectasis. Evaluation is limited without intravenous contrast. There is significant pathologic mediastinal and left hilar adenopathy. Findings are concerning for malignancy. Moderate left effusion. EXAM: CTA OF THE CHEST. History: Left lung mass. Comparison: Chest CT without contrast 02/13/2024 Technique: Multiplanar CT images through the thorax were obtained following administration of IV contrast. MIP images and 3-D reconstructions were also acquired. FINDINGS: Heart size is mildly enlarged. Small pericardial effusion. No thoracic aortic aneurysm. No pulmonary arterial filling defects identified within limitations of the motion artifact. Coronary calcifications. No change in the mediastinal and subcarinal malignant/metastatic lymphadenopathy. No change in the large left lung mass which is narrowing the left-sided bronchi especially centrally. There is postobstructive left lung atelectasis and pneumonia and persistent left pleural effusion. No pneumothorax. Within the visualized upper abdomen, no acute findings. No acute osseous abnormalities. Impression: 1. No pulmonary embolism. 2. No change in the large left lung mass which is narrowing the left-sided bronchi most notable centrally. 3. No change in the malignant/metastatic intrathoracic lymphadenopathy. 4. Left pleural effusion. 5. Postobstructive atelectasis and pneumonia within the left lung EXAM: CT ABDOMEN PELVIS WITHOUT CONTRAST HISTORY: Lung mass with prior nephrectomy COMPARISON: CT abdomen pelvis 03/07/2021. And same day CT chest TECHNIQUE: Serial axial images of the abdomen pelvis were performed from the lung bases through the inferior pelvis without contrast. These were viewed in multiple planes. FINDINGS: Left pleural effusion and consolidation is unchanged with large periaortic lymph nodes. Evaluation is limited due to lack of contrast. The liver is unremarkable. Gallbladder is contracted. The adrenal glands are unremarkable. The right kidney is unremarkable. There is been a left nephrectomy. The spleen is normal. Pancreas is unremarkable. The stomach is distended. Small bowel in the abdomen pelvis is unremarkable. The appendix is normal. The colon is unremarkable with scattered stool. Urinary bladder is distended with contrast. The prostate is normal. The osseous structures demonstrate degenerative disease of the hips and spine. There is moderate multilevel degenerative disease. IMPRESSION: 1. No CT evidence of metastatic disease in the abdomen or pelvis. 2. Nephrectomy changes on the left. 3. Left effusion and adjacent consolidation with periaortic lymph nodes. Review Review Statement: I have independently reviewed and interpreted the labs/EKGs/imaging that were ordered by the ER provider. I have reviewed all outside records that are available currently in our EMR including imaging/notes/labs from previous visits. Plan Reccomendations/Plan: 1. Chest pain - likely due to left lung mass. Trop negative. EKG unchanged. Chest pain resolved. 2. Large left lung mass - Concerning for malignancy. CTA confirmed the same with post obstructive pna. Outpatient onc and pulm referrals needed. 3. Post obstructive pneumonia, left - Changed antibiotics to zosyn. Pt at his baseline O2 requirement. Will discharge with augmentin. 4. CKD - At baseline 5. DMt2 - typically uncontrolled, pt does not follow recs at home. 6. CHF, unknown type - Cont home meds 7. BPH - cont home meds Labs overall unremarkable except for his chronic baseline CKD. CXR showed significant abnormality of left lung. CT chest w/o showed large lung mass on left side, 21 cm in length and 16x9 cm cross section. Limited by no contrast. CTA chest done this morning showing same findings and post obstructive pna. Pt abx changed from rocephin/azith to zosyn. Discussed in depth with patient and his , and Celestina WONG, also present in room regarding the concern for lung cancer and how important follow up will be. Discussed with Dr. Bland, [facility] oncology via phone. I am concerned about the overall size of this mass. However patient is not coughing up blood, not in any respiratory distress. He really doesn't even endorse more SOB than his baseline. Vitals are stable except for very mild tachycardia of 100-105. He recommends getting a ct a/p w/o today since he's already had contrast to help expedite the work up somewhat. Otherwise he will need to be seen outpatient by them and a pulmonology referral. CT a/p did not show any evidence of mets at this time. With it being the weekend, a message was left for case management/perinatal social worker to please send referrals to [facility] oncology and pulmonology and ensure pcp f/u. Patient and are agreeable to home health as well. Patient states he feels at his baseline, is not having any chest pain, and is requesting to go home. Will send home on augmentin to cover post obstructive PNA. And again reiterated the importance of close f/u. Patient and are historically very noncompliant. Discharge Diagnoses: 1. Chest pain, resolved 2. Large left lung mass 3. Post obstructive pneumonia 4. CKD 5. DMT2 6. CHF, unknown type 7. BPH Additional Planning: Case discussed with ED Physician, Dr. Vaca. DVT Prophylaxis: Ambulation Advanced Care Plannin minutes spent discussing advance care planning. Admit to: Obs Discussed Plan of Care with Dr. Elena Melendez. Review With Patient Reviewed with Patient and Family: Patient and family have been counseled on condition and care plan and have no immediate questions. I have personally discussed and reviewed the patient's visit/current labs/imaging/decision making with Dr. Elena Melendez, my supervising attending. Total number of minutes spent with patient [85] min. More than 50% of the time spent with this patient was devoted to counseling and coordination of care. Time of Admission:02/13/24 17:41 Time of Discharge: 02/14/24 1015 Discharge Plan Discharge Discharge Orders: Discharge Patient (ONCE); Ordered 02/14/24 Ordered By: SANDRITA GODFREY Activity Restrictions/Additional Instructions: DISCHARGE TO HOME DX: LARGE LEFT LUNG MASS, PNEUMONIA YOU NEED TO SEE YOUR PCP, ONCOLOGY (CANCER DOCTOR), AND ACCOUNTING POLICY CONSULTANT (LUNG DOCTOR) GRACE I HAVE LEFT A MESSAGE WITH OUR DIGITAL CAMPAIGN SPECIALIST TO WORK ON REFERRALS TO [facility] FIRST THING FRIDAY MORNING SHE WILL ALSO WORK ON SETTING UP HOME HEALTH THERAPY FOR YOU EXPECT A PHONE CALL FROM HER FRIDAY, OTHERWISE PLEASE CALL HERE OR YOUR PCP FOR FURTHER HELP RETURN WITH WORSENING SYMPTOMS FINISH ANTIBIOTICS PLEASE TAKE DISC WITH YOUR CT SCAN RESULTS WITH YOU TO SPECIALIST APPOINTMENTS Patient Disposition: HOME SELF-CARE Prescriptions: New amoxicillin-pot clavulanate 875-125 mg tablet 1 tab PO BID 7 Days Qty: 14 0RF Continued albuterol sulfate 90 mcg/actuation HFA aerosol inhaler 2 puff inhalation Q4-6H PRN (Reason: shortness of breath or wheezing) amlodipine 10 mg tablet 10 mg PO QDAY atropine 1 % drops 1 drp BOTHEYES BID fluticasone furoate-vilanterol [Breo Ellipta] 100-25 mcg/dose blister with device 1 inh inhalation Q24H brimonidine 0.2 % drops 1 drp BOTHEYES TID Rx Instructions: administer approximately 8 hours apart bumetanide 0.5 mg tablet 0.5 mg PO BID carvedilol 3.125 mg tablet 3.125 mg PO BID Rx Instructions: must administer with a meal/food dapagliflozin propanediol [Farxiga] 10 mg tablet 10 mg PO QDAY insulin glargine [Lantus U-100 Insulin] 100 unit/mL solution 60 unit subcut BID Ozempic 1 mg/dose (4 mg/3 mL) pen injector 1 mg subcut QWEEK pantoprazole 40 mg tablet,delayed release (DR/EC) 40 mg PO QDAY tamsulosin 0.4 mg capsule 0.4 mg PO QDAY timolol 0.5 % drops 1 drp BOTHEYES BID cholecalciferol (vitamin D3) 1,250 mcg (50,000 unit) capsule 1,250 mcg PO QWEEK Discontinued calcitriol 0.25 mcg capsule 0.25 mcg PO QDAY Did you review [place] PROCESS CONSULTANT for ALL controlled substances?: Not Applicable Discussed opioids are addictive and Narcan is available by prescription or from pharmacy.: No Condition: Stable
[2024-02-14 11:20] VITALS: PULSE 106
--- NOTE | 2024-02-14 11:43 | CT ---
EXAM: CT ABDOMEN PELVIS WITHOUT CONTRAST HISTORY: Lung mass with prior nephrectomy COMPARISON: CT abdomen pelvis 03/07/2021. And same day CT chest TECHNIQUE: Serial axial images of the abdomen pelvis were performed from the lung bases through the inferior pelvis without contrast. These were viewed in multiple planes. FINDINGS: Left pleural effusion and consolidation is unchanged with large periaortic lymph nodes. Evaluation is limited due to lack of contrast. The liver is unremarkable. Gallbladder is contracted . The adrenal glands are unremarkable. The right kidney is unremarkable. There is been a left neph rectomy. The spleen is normal. Pancreas is unremarkable. The stomach is distended. Small bowel in the abdomen pelvis is unremarkable. The appendix is normal. The colon is unremarkabl e with scattered stool. Urinary bladder is distended with contrast. The prostate is normal. The os seous structures demonstrate degenerative disease of the hips and spine. There is moderate multileve l degenerative disease. IMPRESSION: 1. No CT evidence of metastatic disease in the abdomen or pelvis. 2. Nephrectomy changes on the left. 3. Left effusion and adjacent consolidation with periaortic lymph nodes. All CT scans are performed using dose optimization techniques as appropriate to the performed exam an d include at least one of the following: Automated exposure control, adjustment of the mA and/or kV according t o size, and the use of iterative reconstruction technique.
[2024-02-14] MEDS ORDERED: ZOSYN 4.5 GM 4.5 GM in SODIUM CHLORIDE 100ML 100 ML IV SCH (12:00)
[2024-02-15] MEDS ORDERED: PROTONIX PO SCH (06:00)
[2024-02-15] MEDS ORDERED: NORVASC PO SCH (09:00)
== END 2024-02-14 13:15 | disposition home or self-care (01) ==
LOC: SCU 15:02 → ED 15:02 → SCU 18:04
PROVIDERS: ADMIT Hospitalist; ATTEND Physician Assistant

== ENCOUNTER 2024-02-17 10:02 | Observation (INO) ==
[2024-02-17 10:53] LABS: BASOPHILS % (AUTO) 0.1 % (0.0-3.0); EOSINOPHILS % (AUTO) 0.1 % (0.0-7.0); HEMATOCRIT 49.1 % (42.0-52.0); HEMOGLOBIN 14.9 g/dl (14.0-18.0); IMMATURE GRANULOCYTE # (AUTO) 0.1 (0.0-1.0); IMMATURE GRANULOCYTE % (AUTO) 0.5 % (0.0-5.0); LYMPHOCYTES # (AUTO) 1.5 K/uL (0.60-3.4); LYMPHOCYTES % (AUTO) 10.1 (10.0-50.0); MEAN CORPUSCULAR HEMOGLOBIN 28.7 pg (27.0-31.0); MEAN CORPUSCULAR HGB CONC 30.3 (31.8-35.4); MEAN CORPUSCULAR VOLUME 94.4 fl (80.0-94.0); MONOCYTES # (AUTO) 1.8 K/uL (0.4-2.0); MONOCYTES % (AUTO) 12.1 (0-10); NEUTROPHILS # (AUTO) 11.5 K/ul (2.0-6.9); NEUTROPHILS % (AUTO) 77.1 % (42.2-75.2); PLATELET COUNT 359 10^3/uL (140-440); RDW COEFFICIENT OF VARIATION 13.1 % (11.6-14.8); WHITE BLOOD COUNT 14.93 K/ul (4.2-10.2)
[2024-02-17 11:09] LABS: ALANINE AMINOTRANSFERASE 27.9 U/L (0-50); ALBUMIN 3.78 g/dL (3.5-5.0); ALKALINE PHOSPHATASE 84.7 U/L (56-119); ASPARTATE AMINO TRANSFERASE 34.6 U/L (17-59); BILIRUBIN,TOTAL 0.85 mg/dL (0.2-1.3); BLOOD UREA NITROGEN 21.6 mg/dL (9-20); CALCIUM 9.19 mg/dL (8.4-10.2); CARBON DIOXIDE 29.8 mmol/L (22-30.0); CHLORIDE 102.3 mmol/L (98-107); CREATININE 1.39 mg/dL (0.60-1.10); GLUCOSE 60.8 mg/dL (74-106); POTASSIUM 4.36 mmol/L (3.5-5.1); SODIUM 140.7 mmol/L (134.5-145); TOTAL PROTEIN 7.86 g/dL (6.3-8.2)
[2024-02-17 11:10] LABS: PROTHROMBIN TIME 12.4 SEC (9.3-11.0)
[2024-02-17 11:12] LABS: ABG O2 HGB 91.6 % (95-100); ABG PH 7.48 (7.35-7.45); BEecf 7.8 (-2.0-3.0); COHb 2.2 (0.5-1.5); HCO3 31.3 (21-28); MetHb 1.4 (0-1.5); TCO2 32.6 (19-24); sO2 95.2 % (94-98); tHb 15.6 g/dl (11.7-17.4)
[2024-02-17] MEDS: SODIUM CHLORIDE 1,000 ML IV ONE ×2 (11:13→13:55)
[2024-02-17 11:30] LABS: MOLECULAR FLU A NEGATIVE BY NAAT (NEGATIVE); MOLECULAR FLU B NEGATIVE BY NAAT (NEGATIVE); RSV MOLECULAR NEGATIVE BY NAAT (NEGATIVE); SARS COV-2 RNA RAPID NAAT NEGATIVE (NEGATIVE)
--- NOTE | 2024-02-17 11:33 | DI ---
EXAM: CHEST ONE VIEW, FRONTAL VIEW ONLY. HISTORY: Sepsis. COMPARISON: 02/14/2024. FINDINGS: Extensive mass-like consolidation of the left lung with underlying pleural effusion again noted. The band-like opacities at the right lung base. Right lung otherwise clear. Heart size is s table. No pneumothorax identified. No acute osseous abnormalities seen. IMPRESSION: 1. Stable large left lung mass and left pleural effusion. 2. Right basilar subsegmental atelectasis.
[2024-02-17] MEDS: ZOSYN 3.375 GM 3.375 GM in SODIUM CHLORIDE 100ML 100 ML IV ONE (11:56)
[2024-02-17] MEDS: VANCOMYCIN 1.5 GRAM/300 ML PREMIX 1.5 GM/300 ML BAG IV ONE (13:10)
[2024-02-17] MEDS: CARDIZEM INJ IVP STA (13:55)
[2024-02-17] MEDS: VERSED IVP STA (14:43)
[2024-02-17] MEDS: LIDOCAINE 1%-EPI 1:100,000 20 ML MDV INJ STA (14:44)
[2024-02-17] MEDS: [UNRECOGNIZED DRUG - REMARK] IV ONE (15:40)
--- NOTE | 2024-02-17 16:04 | DI ---
EXAM: FRONTAL CHEST RADIOGRAPH(S). 1 VIEW. History: Post thoracentesis Comparison: 02/17/2024 Findings: Left heart border is obscured. The left hemithorax is completely opacified due to pleural fluid with superimposed pulmonary consolidation. Right lung is well-aerated. No pneumothorax. Impression: Please see above.
[2024-02-17] MEDS: DEXTROSE 50%-WATER ABBOJECT IVP STA (16:15)
[2024-02-17] MEDS: DEXTROSE 50%-WATER ABBOJECT ONE (16:16)
[2024-02-17] MEDS ORDERED: CARDIZEM INJ IVP STA (16:28)
[2024-02-17] MEDS: TRANDATE IVP ONE (16:41)
[2024-02-17 17:03] LABS: FLUID RED CELL COUNT 3615 CELLS/uL (0-5)
[2024-02-17 17:05] LABS: FLUID WBC COUNT 211 CELLS/uL (0-10)
[2024-02-17] MEDS: ATIVAN IVP ONE (20:10)
[2024-02-17] MEDS: LOPRESSOR IVP STA (21:01)
[2024-02-17 21:03] LABS: ABG O2 HGB 89.2 % (95-100); ABG PH 7.36 (7.35-7.45); BEecf 5.1 (-2.0-3.0); COHb 2.5 (0.5-1.5); HCO3 30.5 (21-28); MetHb 0.9 (0-1.5); TCO2 32.2 (19-24); sO2 91.2 % (94-98); tHb 14.4 g/dl (11.7-17.4)
[2024-02-17] MEDS: SODIUM CHLORIDE 500 ML IV SCH (22:08)
[2024-02-17 22:12] LABS: BASOPHILS % (AUTO) 0.1 % (0.0-3.0); EOSINOPHILS % (AUTO) 0.1 % (0.0-7.0); HEMATOCRIT 45.7 % (42.0-52.0); HEMOGLOBIN 13.7 g/dl (14.0-18.0); IMMATURE GRANULOCYTE # (AUTO) 0.1 (0.0-1.0); IMMATURE GRANULOCYTE % (AUTO) 0.7 % (0.0-5.0); LYMPHOCYTES # (AUTO) 1.5 K/uL (0.60-3.4); MEAN CORPUSCULAR VOLUME 96.8 fl (80.0-94.0); MONOCYTES # (AUTO) 2.2 K/uL (0.4-2.0); MONOCYTES % (AUTO) 13.1 (0-10); NEUTROPHILS # (AUTO) 12.6 K/ul (2.0-6.9); PLATELET COUNT 312 10^3/uL (140-440); RDW COEFFICIENT OF VARIATION 13.2 % (11.6-14.8); RED BLOOD COUNT 4.72 10^6/ul (4.70-6.10); WHITE BLOOD COUNT 16.42 K/ul (4.2-10.2)
[2024-02-17 22:24] LABS: ALANINE AMINOTRANSFERASE 25.5 U/L (0-50); ALBUMIN 3.45 g/dL (3.5-5.0); ALKALINE PHOSPHATASE 71.2 U/L (56-119); ASPARTATE AMINO TRANSFERASE 38.9 U/L (17-59); BILIRUBIN,TOTAL 0.73 mg/dL (0.2-1.3); BLOOD UREA NITROGEN 24.1 mg/dL (9-20); CALCIUM 8.36 mg/dL (8.4-10.2); CARBON DIOXIDE 26.9 mmol/L (22-30.0); CHLORIDE 106.4 mmol/L (98-107); CREATININE 1.39 mg/dL (0.60-1.10); POTASSIUM 4.42 mmol/L (3.5-5.1); SODIUM 139.3 mmol/L (134.5-145); TOTAL PROTEIN 7.15 g/dL (6.3-8.2)
[2024-02-18 05:18] LABS: BASOPHILS % (AUTO) 0.1 % (0.0-3.0); EOSINOPHILS # (AUTO) 0.1 K/ul (0.0-0.7); EOSINOPHILS % (AUTO) 0.3 % (0.0-7.0); HEMOGLOBIN 13.6 g/dl (14.0-18.0); IMMATURE GRANULOCYTE # (AUTO) 0.1 (0.0-1.0); IMMATURE GRANULOCYTE % (AUTO) 0.6 % (0.0-5.0); LYMPHOCYTES # (AUTO) 1.2 K/uL (0.60-3.4); LYMPHOCYTES % (AUTO) 6.7 (10.0-50.0); MEAN CORPUSCULAR HGB CONC 30.2 (31.8-35.4); MEAN CORPUSCULAR VOLUME 95.9 fl (80.0-94.0); MONOCYTES # (AUTO) 2.3 K/uL (0.4-2.0); MONOCYTES % (AUTO) 12.9 (0-10); NEUTROPHILS # (AUTO) 13.9 K/ul (2.0-6.9); NEUTROPHILS % (AUTO) 79.4 % (42.2-75.2); PLATELET COUNT 297 10^3/uL (140-440); RDW COEFFICIENT OF VARIATION 13.3 % (11.6-14.8); RED BLOOD COUNT 4.69 10^6/ul (4.70-6.10); WHITE BLOOD COUNT 17.54 K/ul (4.2-10.2)
[2024-02-18 05:33] LABS: ALANINE AMINOTRANSFERASE 26.3 U/L (0-50); ALBUMIN 3.31 g/dL (3.5-5.0); ALKALINE PHOSPHATASE 74.2 U/L (56-119); BILIRUBIN,TOTAL 0.75 mg/dL (0.2-1.3); BLOOD UREA NITROGEN 24.6 mg/dL (9-20); CALCIUM 8.41 mg/dL (8.4-10.2); CARBON DIOXIDE 28.9 mmol/L (22-30.0); CHLORIDE 107.4 mmol/L (98-107); CREATININE 1.41 mg/dL (0.60-1.10); GLUCOSE 87.5 mg/dL (74-106); POTASSIUM 4.37 mmol/L (3.5-5.1); SODIUM 141.3 mmol/L (134.5-145); TOTAL PROTEIN 7.04 g/dL (6.3-8.2)
[2024-02-18 05:56] LABS: ABG O2 HGB 89.4 % (95-100); ABG PH 7.37 (7.35-7.45); COHb 2.3 (0.5-1.5); HCO3 28.3 (21-28); MetHb 1.3 (0-1.5); TCO2 29.8 (19-24); sO2 91.7 % (94-98); tHb 14.7 g/dl (11.7-17.4)
--- NOTE | 2024-02-18 07:03 | DI ---
EXAM: PORTABLE CHEST HISTORY: Shortness of breath chest mass COMPARISON: Single-view chest 02/17/2024 FINDINGS / impression:: The left hemithorax remains opacified. Prominent interstitial markings are noted at the right lung base. Cardiac size is not evaluated.
[2024-02-18] MEDS ORDERED: PHARM CONSULT:VANCOMYCIN IV ONE TIME ORDER IV (07:45)
--- NOTE | 2024-02-18 07:51 | ED.PDOC ---
General <SHALINI MCDONOUGH DO - Last Filed: 02/18/24 07:54> ED Provider: Dr. SHALINI MCDONOUGH DO Chief Complaint: Shortness of Air Stated Complaint: 78-year-old male presents to the ER with shortness of breath. He also has hypersomnolence. The patient was recently admitted to this hospital after finding of lung mass on the left. This is very low with large lung mass that was a new diagnosis for him. He was subsequently discharged after being treated for pneumonia. He was discharged on Augmentin. He reports compliance since then. Nonetheless, he continued to have some shortness of breath. He is oxygen dependent and had no significant increase in the oxygen requirement, however the states that he seems more confused than his baseline. He has also developed a twitch of some sort where he has a recurrent and persistent twitching behavior. They have not been seen by any oncologist to characterize the mass that is in the left lung for further treatment options and workup Time Seen by Provider: 02/17/24 10:28 Information Source: Patient and EMT Primary Care Provider: [facility] Nursing and Triage Documentation Reviewed and Agree: Yes What is Opioid Naive?: *Opioid Naive implies the patient is not already taking opioids or not chronically receiving opioids on a daily basis. *PRN dosing is not "usually" associated with tolerance. *Patients are at higher risk of over-sedation and aspiration. What is Opioid Tolerant?: *Opioid Tolerance implies less than the expected response to an opioid. *Acquired tolerance is defined by the patient taking 60mg of oral morphine daily (or equianalgesic dose of another opioid) for 1 week or more. *Often associated with chronic pain. *May take more than usual dose to achieve desired pain control. Review of Systems <SHALINI MCDONOUGH DO - Last Filed: 02/18/24 07:54> Review Of Systems Constitutional: Reports No symptoms All Other Systems: Reviewed and Negative PFSH <SHALINI MCDONOUGH DO - Last Filed: 02/18/24 07:54> Medical History Right knee pain M25.561 - Pain in right knee (ICD-10) History of smoking quit 05/2021 Z87.891 - Personal history of nicotine dependence (ICD-10) Hypertension I10 - Essential (primary) hypertension (ICD-10) Hyperlipidemia for years E78.5 - Hyperlipidemia, unspecified (ICD-10) Atherosclerosis of coronary artery for a few years I25.10 - Atherosclerotic heart disease of [place] coronary artery without angina pectoris (ICD-10) Diabetes mellitus for years E11.9 - Type 2 diabetes mellitus without complications (ICD-10) Family History Mother No problems noted. FATHER Cerebrovascular accident BROTHER Diabetes Social History Smoking and tobacco status: Former smoker Alcohol intake: former Substance use type: does not use Water heater temperature set < 120 degrees: Yes Working smoke detector in home: Yes Fire extinguisher in home: Yes Carbon monoxide detector in home: Yes Surgical History H/O shoulder surgery left Z98.89 - Other specified postprocedural states (ICD-10) H/O kidney removal Z90.5 - Acquired absence of kidney (ICD-10) History of musculoskeletal system surgery Rotator cuff repair left shoulder Z98.890 - Other specified postprocedural states (ICD-10) Kidney excision left kidney removed 1 years ago Physical Exam <SHALINI MCDONOUGH DO - Last Filed: 02/18/24 07:54> Physical Exam Appearance: Reports No pain distress and Obese Ill-appearing: Mild Eyes: Reports JUAN and EOMI ENT: Reports Oropharynx normal Respiratory: Reports Airway patent, Respirations nonlabored and Other (Severely diminished if not absent breath sounds on the left when compared to the right. No tracheal deviation. No crackles rales or rhonchi on the left. Right negative exam) Cardiovascular: Reports Pulses normal and Tachycardia (Persistent, present at last admission) GI/: Reports Soft and Nontender Musculoskeletal: Reports Normal strength and ROM intact Skin: Reports Warm, Dry and Normal color Neurological: Reports Sensation intact, Motor intact, Alert and Oriented Psychiatric: Reports Affect appropriate and Mood appropriate Interpretation <DO Hillary SILVA Last Filed: 02/18/24 07:54> Radiology Interpretation Radiology Interpretation By: Radiologist Radiology Results: Positive (Whiteout left lung, improved after thoracentesis but persistent) Procedures <DO Hillary SILVA Last Filed: 02/18/24 07:54> Additional Procedures Additional Procedures: Other (Thoracentesis: Indication shortness of breath altered mental status and twitching. Known lung mass. Consent obtained from the patient and the is present at bedside. Risk and benefits reviewed. Pleural effusion present on CT and chest x-ray. Utilizing aseptic technique, 2% lidocaine used to) Re-Evaluation <SHALINI MCDONOUGH DO - Last Filed: 02/18/24 07:54> Re-Evaluation Additional Comments: 78-year-old male presents to the ER complaining of shortness of breath. He is also had altered mental status and is twitching behavior. Concern for hypercapnia to include the hypercapnic respiratory failure with CO2 narcosis to explain his somnolence and possibly the twitching. Other electrolyte abnormalities on the differential. These were reviewed on his laboratory workup. He does flagged for sepsis. Sepsis protocol followed with cultures being obtained and antibiotics given. Fluid bolus given carefully due to the concern of fluid overload in the large lung mass on the left side. Patient tolerated these procedures well and remained stable. Symptomatic treatment ordered. Closely monitor throughout the emergency department. Extended ER stay due to complications specifically due to the fact that they refused to go to any hospital other than the 2 in [place] despite discussing with them the gravity of their situation. Hospital service declines admission at this facility as this is a new diagnosis and patient does pursue further workup therefore I agree and that this patient will require specialty services to obtain appropriate tests to characterize the lesion and formulate treatment plan and go over goals of care. Due to the unavailability of beds at the 2 facilities that they are willing to go to, the patient was monitored in the emergency department for extended time. Please place ER ops status for billing purposes as well as to represent the time and the efforts done by staff in the emergency department. Repeat labs and imaging ordered and patient reassessed. Discussed with oncoming physician. This is a very difficult and unfavorable situation and that it is dangerous for the patient as well as hospital staff as this is not the most appropriate place for this patient however his maintains as well as the patient that those are the only 2 facilities that they would be willing to be transferred to both of which are full and have an excessively long wait list currently. Critical Care Note <DO Hillary SILVA Last Filed: 02/18/24 07:54> Critical Care Note Total Critical Care Time (mins): 500 Comments: Critical patient with lung mass and pleural effusion respiratory failure. Thoracentesis required. Bedside reassessments and cardiac monitoring cardiac output measures, sepsis treatment and reassessments. <JOSE RAMON CHAVES MD - Last Filed: 02/18/24 09:34> Critical Care Note Total Critical Care Time (mins): 200 Course <SHALINI MCDONOUGH DO - Last Filed: 02/18/24 07:54> Course 02/18/24 05:14 02/18/24 05:14 Orders, Labs, Meds: Lab Review 02/17/24 02/17/24 02/17/24 10:20 11:00 11:04 WBC 14.93 H RBC 5.20 Hgb 14.9 Hct 49.1 MCV 94.4 H MCH 28.7 MCHC 30.3 L RDW Coeff of Krissy 13.1 Plt Count 359 Immature Gran % (Auto) 0.5 Neut % (Auto) 77.1 H Lymph % (Auto) 10.1 [place] % (Auto) 12.1 H Eos % (Auto) 0.1 Baso % (Auto) 0.1 Neut # (Auto) 11.5 H Lymph # (Auto) 1.5 [place] # (Auto) 1.8 Eos # (Auto) 0.0 Baso # (Auto) 0.0 Immature Gran # (Auto) 0.1 PT 12.4 H INR 1.20 Puncture Site Lt rad Base Excess 7.8 H O2 Saturation 95.2 ABG pH 7.48 H ABG pCO2 42.0 ABG pO2 71.0 L ABG HCO3 31.3 H ABG Total CO2 32.6 H Julian Test Pos Hemoglobin 1.4 Oxyhemoglobin 91.6 L Carboxyhemoglobin 2.2 H Total Hemoglobin 15.6 O2 Delivery Device Cannula Oxygen Liter Flow 4.00 FiO2 % 36.0 Sodium 140.7 Potassium 4.36 Chloride 102.3 Carbon Dioxide 29.8 Anion Gap 12.96 BUN 21.6 H Creatinine 1.39 H Estimated GFR (MDRD) 50.00 BUN/Creatinine Ratio 15.53 Glucose 60.8 L Lactic Acid 1.92 Calcium 9.19 Total Bilirubin 0.85 AST 34.6 ALT 27.9 Alkaline Phosphatase 84.7 Ammonia C-Reactive Prot, Quant 215 H NT-Pro-B Natriuret Pep 545 H Total Protein 7.86 Albumin 3.78 Globulin 4.08 Albumin/Globulin Ratio 0.92 Procalcitonin 0.51 H Fluid WBC Fld Total RBCs Counted Fluid Comment Influ A Molecular Assay Negative by naat Influ B Molecular Assay Negative by naat RSV Antigen Negative by naat SARS CoV-2 RNA Rapid SALTY Negative 02/17/24 02/17/24 02/17/24 15:10 15:36 20:51 WBC RBC Hgb Hct MCV MCH MCHC RDW Coeff of Krissy Plt Count Immature Gran % (Auto) Neut % (Auto) Lymph % (Auto) [place] % (Auto) Eos % (Auto) Baso % (Auto) Neut # (Auto) Lymph # (Auto) [place] # (Auto) Eos # (Auto) Baso # (Auto) Immature Gran # (Auto) PT INR Puncture Site Lrad Base Excess 5.1 H O2 Saturation 91.2 L ABG pH 7.36 ABG pCO2 54.0 H ABG pO2 64.0 L ABG HCO3 30.5 H ABG Total CO2 32.2 H Julian Test Pos Hemoglobin 0.9 Oxyhemoglobin 89.2 L Carboxyhemoglobin 2.5 H Total Hemoglobin 14.4 O2 Delivery Device Cannula Oxygen Liter Flow 2.00 FiO2 % Sodium Potassium Chloride Carbon Dioxide Anion Gap BUN Creatinine Estimated GFR (MDRD) BUN/Creatinine Ratio Glucose Lactic Acid Calcium Total Bilirubin AST ALT Alkaline Phosphatase Ammonia 20.5 C-Reactive Prot, Quant NT-Pro-B Natriuret Pep Total Protein Albumin Globulin Albumin/Globulin Ratio Procalcitonin Fluid WBC 211 H Fld Total RBCs Counted 3615 H Fluid Comment Influ A Molecular Assay Influ B Molecular Assay RSV Antigen SARS CoV-2 RNA Rapid SALTY 02/17/24 02/18/24 02/18/24 22:05 05:14 05:33 WBC 16.42 H 17.54 H RBC 4.72 4.69 L Hgb 13.7 L 13.6 L Hct 45.7 45.0 MCV 96.8 H 95.9 H MCH 29.0 29.0 MCHC 30.0 L 30.2 L RDW Coeff of Krissy 13.2 13.3 Plt Count 312 297 Immature Gran % (Auto) 0.7 0.6 Neut % (Auto) 77.0 H 79.4 H Lymph % (Auto) 9.0 L 6.7 L [place] % (Auto) 13.1 H 12.9 H Eos % (Auto) 0.1 0.3 Baso % (Auto) 0.1 0.1 Neut # (Auto) 12.6 H 13.9 H Lymph # (Auto) 1.5 1.2 [place] # (Auto) 2.2 H 2.3 H Eos # (Auto) 0.0 0.1 Baso # (Auto) 0.0 0.0 Immature Gran # (Auto) 0.1 0.1 PT INR Puncture Site Lrad Base Excess 3.0 O2 Saturation 91.7 L ABG pH 7.37 ABG pCO2 49.0 H ABG pO2 65.0 L ABG HCO3 28.3 H ABG Total CO2 29.8 H Julian Test Pos Hemoglobin 1.3 Oxyhemoglobin 89.4 L Carboxyhemoglobin 2.3 H Total Hemoglobin 14.7 O2 Delivery Device Cannula Oxygen Liter Flow 2.00 FiO2 % Sodium 139.3 141.3 Potassium 4.42 4.37 Chloride 106.4 107.4 H Carbon Dioxide 26.9 28.9 Anion Gap 10.42 9.37 BUN 24.1 H 24.6 H Creatinine 1.39 H 1.41 H Estimated GFR (MDRD) 50.00 49.00 BUN/Creatinine Ratio 17.33 17.44 Glucose 86.0 87.5 Lactic Acid Calcium 8.36 L 8.41 Total Bilirubin 0.73 0.75 AST 38.9 49.0 ALT 25.5 26.3 Alkaline Phosphatase 71.2 74.2 Ammonia C-Reactive Prot, Quant NT-Pro-B Natriuret Pep Total Protein 7.15 7.04 Albumin 3.45 L 3.31 L Globulin 3.70 3.73 Albumin/Globulin Ratio 0.93 0.88 Procalcitonin Fluid WBC Fld Total RBCs Counted Fluid Comment Influ A Molecular Assay Influ B Molecular Assay RSV Antigen SARS CoV-2 RNA Rapid SALTY Orders Category Date Time Status ADMIT OBSERVATION [PLACE PATIENT OBSERVATION] .TO ADMISSION 02/18/24 09:32 Active MEDSURG (MONITORED BED) ABG DRAW REQUEST DAILY@0600 CARDIO 02/18/24 06:00 Completed ABG DRAW REQUEST Stat CARDIO 02/17/24 10:43 Completed ABG DRAW REQUEST Stat CARDIO 02/17/24 20:44 Completed EKG-(ED ONLY) Stat CARDIO 02/17/24 10:38 Completed EKG-(ED ONLY) Stat CARDIO 02/18/24 08:24 Completed NPO REMINDER: IMAGING ONCE CARE 02/17/24 13:26 Active TELEMETRY MONITORING TELE CARE 02/18/24 09:32 Active ED APPLY O2 .ONCE EMERGENCY 02/17/24 10:43 Active ABG COOX Stat LAB 02/17/24 11:04 Completed ABG COOX Stat LAB 02/17/24 20:51 Completed ABG COOX Stat LAB 02/17/24 21:51 Completed AMMONIA Stat LAB 02/17/24 15:36 Completed BLOOD CULTURE (ED ONLY) Stat LAB 02/17/24 11:27 Received BODY FLUID CULTURE Stat LAB 02/17/24 15:13 Results C-REACTIVE PROTEIN Stat LAB 02/17/24 11:00 Completed CBC W/ AUTO DIFF DAILY@0600 LAB 02/18/24 05:14 Completed CBC W/ AUTO DIFF Stat LAB 02/17/24 10:20 Completed CBC W/ AUTO DIFF Stat LAB 02/17/24 22:05 Completed CMP [COMPREHENSIVE METABOLIC PANEL] DAILY@0600 LAB 02/18/24 05:14 Completed CMP [COMPREHENSIVE METABOLIC PANEL] Stat LAB 02/17/24 22:05 Completed COMPREHENSIVE METABOLIC PANEL Stat LAB 02/17/24 10:20 Completed FLU A/B MOLECULAR Stat LAB 02/17/24 11:00 Completed FLUID CELL COUNT WITH DIFF Stat LAB 02/17/24 15:10 Completed LACTIC ACID Stat LAB 02/17/24 10:20 Completed MRSA SCREEN Routine LAB 02/17/24 11:00 Received NT-PROBNP(ED) Stat LAB 02/17/24 10:20 Completed PROCALCITONIN Stat LAB 02/17/24 10:20 Completed PT WITH INR Stat LAB 02/17/24 10:20 Completed RSV Stat LAB 02/17/24 11:00 Completed SARS COV-2 RNA RAPID SALTY Stat LAB 02/17/24 11:00 Completed URINALYSIS C & S IF INDICATED Stat LAB 02/17/24 10:43 Uncollected 0.9 % Sodium Chloride [Saline Flush] Meds 02/17/24 10:42 Active 1 syr IVF PRN PRN Dextrose 50 % in Water [Dextrose 50%-Water Abboject] Meds 02/17/24 16:03 Discontinued 50 ml .ROUTE .STK-MED ONE Dextrose 50 % in Water [Dextrose 50%-Water Abboject] Meds 02/17/24 16:12 Discontinued 50 ml IVP ONCE STA Diltiazem HCl [Cardizem Inj] Meds 02/17/24 13:48 Discontinued 20 mg IVP ONCE STA Labetalol HCl [Trandate] Meds 02/17/24 16:34 Discontinued 20 mg IVP ONCE ONE Labetalol HCl [Trandate] Meds 02/18/24 09:19 Discontinued 20 mg IVP ONCE ONE Lidocaine 1%/Epinephrine [Lidocaine 1%-Epi 1:100,000 20 Meds 02/17/24 13:39 Discontinued ml Mdv] 10 ml INJ ONCE STA Lorazepam [Ativan] Meds 02/17/24 20:05 Discontinued 2 mg IVP ONCE ONE Metoprolol Tartrate [Lopressor] Meds 02/17/24 20:54 Discontinued 10 mg IVP ONCE STA Midazolam HCl Inj [Versed] Meds 02/17/24 13:26 Discontinued 2.5 mg IVP ONCE STA Pharm Consult [Pharm Consult:Vancomycin IV One Time Meds 02/18/24 07:45 Discontinued Order] 1 each IV ONCE ONE Pharm Consult [Pharm Consult:Vancomycin IV X1 Loading Meds 02/17/24 11:38 Discontinued Dose] 1 each IV ONCE ONE Piperacillin Sodium/Tazobactam [Zosyn 3.375 gm] 3.375 Meds 02/17/24 11:38 Discontinued gm 0.9 % Sodium Chloride [Sodium Chloride 100Ml] 100 ml IV ONCE Piperacillin Sodium/Tazobactam [Zosyn 3.375 gm] 3.375 Meds 02/18/24 07:45 Discontinued gm 0.9 % Sodium Chloride [Sodium Chloride 100Ml] 100 ml IV ONCE Sodium Chloride 0.9% [Sodium Chloride] 1,000 ml Meds 02/17/24 10:42 Discontinued IV BOLUS Sodium Chloride 0.9% [Sodium Chloride] 1,000 ml Meds 02/17/24 13:48 Discontinued IV BOLUS Sodium Chloride 0.9% [Sodium Chloride] 500 ml Meds 02/17/24 22:00 Active IV 75 mls/hr Vancomycin/Water For Inj (Peg) [Vancomycin 1.5 Gram/300 Meds 02/17/24 13:00 Discontinued ml Premix] 1.5 gm in 300 ml IV ONCE CHEST, 1V AP ONLY Stat RADS 02/17/24 10:42 Completed CHEST, 1V AP ONLY Stat RADS 02/17/24 15:36 Completed CHEST, 1V AP ONLY Timed RADS 02/18/24 06:00 Completed Medications Generic Name Dose Route Start Last Admin Trade Name Freq PRN Reason Stop Dose Admin Sodium Chloride 500 mls @ 75 mls/hr 02/17/24 22:00 02/17/24 22:08 Sodium Chloride IV 75 mls/hr .Q6H40M ESTEBAN Administration Sodium Chloride 1 syr 02/17/24 10:42 02/17/24 20:10 0.9% Sodium Chloride 10 Ml Disp.Syrin IVF 1 syr PRN PRN Administration To flush IV Discontinued Medications Generic Name Dose Route Start Last Admin Trade Name Freq PRN Reason Stop Dose Admin Dextrose 50 ml 02/17/24 16:12 02/17/24 16:15 Dextrose 50 % In Water 50 Ml Disp.Syrin IVP 02/17/24 16:13 50 ml ONCE STA Administration Diltiazem HCl 20 mg 02/17/24 13:48 02/17/24 13:55 Diltiazem Hcl Inj 25 Mg/5 Ml Vial IVP 02/17/24 13:49 20 mg ONCE STA Administration Sodium Chloride 1,000 mls @ 1,000 mls/hr 02/17/24 10:42 02/17/24 12:40 Sodium Chloride IV 02/17/24 11:41 Infused BOLUS ONE Infusion Piperacillin Sod/Tazobactam 100 mls @ 200 mls/hr 02/17/24 11:38 02/17/24 11:56 Sod 3.375 gm/ Sodium Chloride IV 02/17/24 12:07 200 mls/hr ONCE ONE Administration VANCOMYCIN/WATER FOR INJ (PEG) 1.5 gm in 300 mls @ 200 mls/hr 02/17/24 13:00 02/17/24 13:10 Vancomycin 1.5 Gram/300 Ml Premix IV 02/17/24 14:29 200 mls/hr ONCE ONE Administration Sodium Chloride 1,000 mls @ 1,000 mls/hr 02/17/24 13:48 02/17/24 15:36 Sodium Chloride IV 02/17/24 14:47 Infused BOLUS ONE Infusion Piperacillin Sod/Tazobactam 100 mls @ 200 mls/hr 02/18/24 07:45 02/18/24 07:58 Sod 3.375 gm/ Sodium Chloride IV 02/18/24 08:14 200 mls/hr ONCE ONE Administration Labetalol HCl 20 mg 02/17/24 16:34 02/17/24 16:41 Labetalol Hcl 20 Mg/4 Ml Disp.Syrin IVP 02/17/24 16:35 20 mg ONCE ONE Administration Labetalol HCl 20 mg 02/18/24 09:19 Labetalol Hcl 20 Mg/4 Ml Disp.Syrin IVP 02/18/24 09:20 ONCE ONE Lidocaine/Epinephrine 10 ml 02/17/24 13:39 02/17/24 14:44 Lidocaine 1%/Epinephrine 20 Ml Mdv INJ 02/17/24 13:40 10 ml ONCE STA Administration Lorazepam 2 mg 02/17/24 20:05 02/17/24 20:10 Lorazepam Inj 2 Mg/Ml Vial IVP 02/17/24 20:06 2 mg ONCE ONE Administration Metoprolol Tartrate 10 mg 02/17/24 20:54 02/17/24 21:01 Metoprolol Tartrate 5 Mg/5 Ml Vial IVP 02/17/24 20:55 10 mg ONCE STA Administration Midazolam HCl 2.5 mg 02/17/24 13:26 02/17/24 14:43 Midazolam Hcl Inj 5 Mg/Ml Vial IVP 02/17/24 13:27 2.5 mg ONCE STA Administration Non-Formulary Medication 1 each 02/17/24 11:38 02/17/24 15:40 Pharm Consult:Vancomycin Iv X1 Loading Dose IV 02/17/24 11:39 Not Given ONCE ONE Non-Formulary Medication 1 each 02/18/24 07:45 Pharm Consult: Vancomycin Iv One Time Order IV 02/18/24 07:46 ONCE ONE Vital Signs: Temp Pulse Resp BP Pulse Ox O2 Flow Rate 02/17/24 23:49 115 H 133/84 96 02/17/24 22:30 111 H 143/86 H 96 2 02/17/24 21:05 151/86 H 02/17/24 20:59 114 H 181/90 H 96 02/17/24 10:05 4 02/17/24 10:05 97.3 F L 130 H 32 H 106/84 92 L <JOSE RAMON CHAVES MD - Last Filed: 02/18/24 09:34> Course Orders, Labs, Meds: Lab Review 02/17/24 02/17/24 02/17/24 10:20 11:00 11:04 WBC 14.93 H RBC 5.20 Hgb 14.9 Hct 49.1 MCV 94.4 H MCH 28.7 MCHC 30.3 L RDW Coeff of Krissy 13.1 Plt Count 359 Immature Gran % (Auto) 0.5 Neut % (Auto) 77.1 H Lymph % (Auto) 10.1 [place] % (Auto) 12.1 H Eos % (Auto) 0.1 Baso % (Auto) 0.1 Neut # (Auto) 11.5 H Lymph # (Auto) 1.5 [place] # (Auto) 1.8 Eos # (Auto) 0.0 Baso # (Auto) 0.0 Immature Gran # (Auto) 0.1 PT 12.4 H INR 1.20 Puncture Site Lt rad Base Excess 7.8 H O2 Saturation 95.2 ABG pH 7.48 H ABG pCO2 42.0 ABG pO2 71.0 L ABG HCO3 31.3 H ABG Total CO2 32.6 H Julian Test Pos Hemoglobin 1.4 Oxyhemoglobin 91.6 L Carboxyhemoglobin 2.2 H Total Hemoglobin 15.6 O2 Delivery Device Cannula Oxygen Liter Flow 4.00 FiO2 % 36.0 Sodium 140.7 Potassium 4.36 Chloride 102.3 Carbon Dioxide 29.8 Anion Gap 12.96 BUN 21.6 H Creatinine 1.39 H Estimated GFR (MDRD) 50.00 BUN/Creatinine Ratio 15.53 Glucose 60.8 L Lactic Acid 1.92 Calcium 9.19 Total Bilirubin 0.85 AST 34.6 ALT 27.9 Alkaline Phosphatase 84.7 Ammonia C-Reactive Prot, Quant 215 H NT-Pro-B Natriuret Pep 545 H Total Protein 7.86 Albumin 3.78 Globulin 4.08 Albumin/Globulin Ratio 0.92 Procalcitonin 0.51 H Fluid WBC Fld Total RBCs Counted Fluid Comment Influ A Molecular Assay Negative by naat Influ B Molecular Assay Negative by naat RSV Antigen Negative by naat SARS CoV-2 RNA Rapid SALTY Negative 02/17/24 02/17/24 02/17/24 15:10 15:36 20:51 WBC RBC Hgb Hct MCV MCH MCHC RDW Coeff of Krissy Plt Count Immature Gran % (Auto) Neut % (Auto) Lymph % (Auto) [place] % (Auto) Eos % (Auto) Baso % (Auto) Neut # (Auto) Lymph # (Auto) [place] # (Auto) Eos # (Auto) Baso # (Auto) Immature Gran # (Auto) PT INR Puncture Site Lrad Base Excess 5.1 H O2 Saturation 91.2 L ABG pH 7.36 ABG pCO2 54.0 H ABG pO2 64.0 L ABG HCO3 30.5 H ABG Total CO2 32.2 H Julian Test Pos Hemoglobin 0.9 Oxyhemoglobin 89.2 L Carboxyhemoglobin 2.5 H Total Hemoglobin 14.4 O2 Delivery Device Cannula Oxygen Liter Flow 2.00 FiO2 % Sodium Potassium Chloride Carbon Dioxide Anion Gap BUN Creatinine Estimated GFR (MDRD) BUN/Creatinine Ratio Glucose Lactic Acid Calcium Total Bilirubin AST ALT Alkaline Phosphatase Ammonia 20.5 C-Reactive Prot, Quant NT-Pro-B Natriuret Pep Total Protein Albumin Globulin Albumin/Globulin Ratio Procalcitonin Fluid WBC 211 H Fld Total RBCs Counted 3615 H Fluid Comment Influ A Molecular Assay Influ B Molecular Assay RSV Antigen SARS CoV-2 RNA Rapid SALTY 02/17/24 02/18/24 02/18/24 22:05 05:14 05:33 WBC 16.42 H 17.54 H RBC 4.72 4.69 L Hgb 13.7 L 13.6 L Hct 45.7 45.0 MCV 96.8 H 95.9 H MCH 29.0 29.0 MCHC 30.0 L 30.2 L RDW Coeff of Krissy 13.2 13.3 Plt Count 312 297 Immature Gran % (Auto) 0.7 0.6 Neut % (Auto) 77.0 H 79.4 H Lymph % (Auto) 9.0 L 6.7 L [place] % (Auto) 13.1 H 12.9 H Eos % (Auto) 0.1 0.3 Baso % (Auto) 0.1 0.1 Neut # (Auto) 12.6 H 13.9 H Lymph # (Auto) 1.5 1.2 [place] # (Auto) 2.2 H 2.3 H Eos # (Auto) 0.0 0.1 Baso # (Auto) 0.0 0.0 Immature Gran # (Auto) 0.1 0.1 PT INR Puncture Site Lrad Base Excess 3.0 O2 Saturation 91.7 L ABG pH 7.37 ABG pCO2 49.0 H ABG pO2 65.0 L ABG HCO3 28.3 H ABG Total CO2 29.8 H Julian Test Pos Hemoglobin 1.3 Oxyhemoglobin 89.4 L Carboxyhemoglobin 2.3 H Total Hemoglobin 14.7 O2 Delivery Device Cannula Oxygen Liter Flow 2.00 FiO2 % Sodium 139.3 141.3 Potassium 4.42 4.37 Chloride 106.4 107.4 H Carbon Dioxide 26.9 28.9 Anion Gap 10.42 9.37 BUN 24.1 H 24.6 H Creatinine 1.39 H 1.41 H Estimated GFR (MDRD) 50.00 49.00 BUN/Creatinine Ratio 17.33 17.44 Glucose 86.0 87.5 Lactic Acid Calcium 8.36 L 8.41 Total Bilirubin 0.73 0.75 AST 38.9 49.0 ALT 25.5 26.3 Alkaline Phosphatase 71.2 74.2 Ammonia C-Reactive Prot, Quant NT-Pro-B Natriuret Pep Total Protein 7.15 7.04 Albumin 3.45 L 3.31 L Globulin 3.70 3.73 Albumin/Globulin Ratio 0.93 0.88 Procalcitonin Fluid WBC Fld Total RBCs Counted Fluid Comment Influ A Molecular Assay Influ B Molecular Assay RSV Antigen SARS CoV-2 RNA Rapid SALTY Orders Category Date Time Status ADMIT OBSERVATION [PLACE PATIENT OBSERVATION] .TO ADMISSION 02/18/24 09:32 Active MEDSURG (MONITORED BED) ABG DRAW REQUEST DAILY@0600 CARDIO 02/18/24 06:00 Completed ABG DRAW REQUEST Stat CARDIO 02/17/24 10:43 Completed ABG DRAW REQUEST Stat CARDIO 02/17/24 20:44 Completed EKG-(ED ONLY) Stat CARDIO 02/17/24 10:38 Completed EKG-(ED ONLY) Stat CARDIO 02/18/24 08:24 Completed NPO REMINDER: IMAGING ONCE CARE 02/17/24 13:26 Active TELEMETRY MONITORING TELE CARE 02/18/24 09:32 Active ED APPLY O2 .ONCE EMERGENCY 02/17/24 10:43 Active ABG COOX Stat LAB 02/17/24 11:04 Completed ABG COOX Stat LAB 02/17/24 20:51 Completed ABG COOX Stat LAB 02/17/24 21:51 Completed AMMONIA Stat LAB 02/17/24 15:36 Completed BLOOD CULTURE (ED ONLY) Stat LAB 02/17/24 11:27 Received BODY FLUID CULTURE Stat LAB 02/17/24 15:13 Results C-REACTIVE PROTEIN Stat LAB 02/17/24 11:00 Completed CBC W/ AUTO DIFF DAILY@0600 LAB 02/18/24 05:14 Completed CBC W/ AUTO DIFF Stat LAB 02/17/24 10:20 Completed CBC W/ AUTO DIFF Stat LAB 02/17/24 22:05 Completed CMP [COMPREHENSIVE METABOLIC PANEL] DAILY@0600 LAB 02/18/24 05:14 Completed CMP [COMPREHENSIVE METABOLIC PANEL] Stat LAB 02/17/24 22:05 Completed COMPREHENSIVE METABOLIC PANEL Stat LAB 02/17/24 10:20 Completed FLU A/B MOLECULAR Stat LAB 02/17/24 11:00 Completed FLUID CELL COUNT WITH DIFF Stat LAB 02/17/24 15:10 Completed LACTIC ACID Stat LAB 02/17/24 10:20 Completed MRSA SCREEN Routine LAB 02/17/24 11:00 Received NT-PROBNP(ED) Stat LAB 02/17/24 10:20 Completed PROCALCITONIN Stat LAB 02/17/24 10:20 Completed PT WITH INR Stat LAB 02/17/24 10:20 Completed RSV Stat LAB 02/17/24 11:00 Completed SARS COV-2 RNA RAPID SALTY Stat LAB 02/17/24 11:00 Completed URINALYSIS C & S IF INDICATED Stat LAB 02/17/24 10:43 Uncollected 0.9 % Sodium Chloride [Saline Flush] Meds 02/17/24 10:42 Active 1 syr IVF PRN PRN Dextrose 50 % in Water [Dextrose 50%-Water Abboject] Meds 02/17/24 16:03 Discontinued 50 ml .ROUTE .STK-MED ONE Dextrose 50 % in Water [Dextrose 50%-Water Abboject] Meds 02/17/24 16:12 Discontinued 50 ml IVP ONCE STA Diltiazem HCl [Cardizem Inj] Meds 02/17/24 13:48 Discontinued 20 mg IVP ONCE STA Labetalol HCl [Trandate] Meds 02/17/24 16:34 Discontinued 20 mg IVP ONCE ONE Labetalol HCl [Trandate] Meds 02/18/24 09:19 Discontinued 20 mg IVP ONCE ONE Lidocaine 1%/Epinephrine [Lidocaine 1%-Epi 1:100,000 20 Meds 02/17/24 13:39 Discontinued ml Mdv] 10 ml INJ ONCE STA Lorazepam [Ativan] Meds 02/17/24 20:05 Discontinued 2 mg IVP ONCE ONE Metoprolol Tartrate [Lopressor] Meds 02/17/24 20:54 Discontinued 10 mg IVP ONCE STA Midazolam HCl Inj [Versed] Meds 02/17/24 13:26 Discontinued 2.5 mg IVP ONCE STA Pharm Consult [Pharm Consult:Vancomycin IV One Time Meds 02/18/24 07:45 Discontinued Order] 1 each IV ONCE ONE Pharm Consult [Pharm Consult:Vancomycin IV X1 Loading Meds 02/17/24 11:38 Discontinued Dose] 1 each IV ONCE ONE Piperacillin Sodium/Tazobactam [Zosyn 3.375 gm] 3.375 Meds 02/17/24 11:38 Discontinued gm 0.9 % Sodium Chloride [Sodium Chloride 100Ml] 100 ml IV ONCE Piperacillin Sodium/Tazobactam [Zosyn 3.375 gm] 3.375 Meds 02/18/24 07:45 Discontinued gm 0.9 % Sodium Chloride [Sodium Chloride 100Ml] 100 ml IV ONCE Sodium Chloride 0.9% [Sodium Chloride] 1,000 ml Meds 02/17/24 10:42 Discontinued IV BOLUS Sodium Chloride 0.9% [Sodium Chloride] 1,000 ml Meds 02/17/24 13:48 Discontinued IV BOLUS Sodium Chloride 0.9% [Sodium Chloride] 500 ml Meds 02/17/24 22:00 Active IV 75 mls/hr Vancomycin/Water For Inj (Peg) [Vancomycin 1.5 Gram/300 Meds 02/17/24 13:00 Discontinued ml Premix] 1.5 gm in 300 ml IV ONCE CHEST, 1V AP ONLY Stat RADS 02/17/24 10:42 Completed CHEST, 1V AP ONLY Stat RADS 02/17/24 15:36 Completed CHEST, 1V AP ONLY Timed RADS 02/18/24 06:00 Completed Medications Generic Name Dose Route Start Last Admin Trade Name Freq PRN Reason Stop Dose Admin Sodium Chloride 500 mls @ 75 mls/hr 02/17/24 22:00 02/17/24 22:08 Sodium Chloride IV 75 mls/hr .[id number] ESTEBAN Administration Sodium Chloride 1 syr 02/17/24 10:42 02/17/24 20:10 0.9% Sodium Chloride 10 Ml Disp.Syrin IVF 1 syr PRN PRN Administration To flush IV Discontinued Medications Generic Name Dose Route Start Last Admin Trade Name Leonardoq PRN Reason Stop Dose Admin Dextrose 50 ml 02/17/24 16:12 02/17/24 16:15 Dextrose 50 % In Water 50 Ml Disp.Syrin IVP 02/17/24 16:13 50 ml ONCE STA Administration Diltiazem HCl 20 mg 02/17/24 13:48 02/17/24 13:55 Diltiazem Hcl Inj 25 Mg/5 Ml Vial IVP 02/17/24 13:49 20 mg ONCE STA Administration Sodium Chloride 1,000 mls @ 1,000 mls/hr 02/17/24 10:42 02/17/24 12:40 Sodium Chloride IV 02/17/24 11:41 Infused BOLUS ONE Infusion Piperacillin Sod/Tazobactam 100 mls @ 200 mls/hr 02/17/24 11:38 02/17/24 11:56 Sod 3.375 gm/ Sodium Chloride IV 02/17/24 12:07 200 mls/hr ONCE ONE Administration VANCOMYCIN/WATER FOR INJ (PEG) 1.5 gm in 300 mls @ 200 mls/hr 02/17/24 13:00 02/17/24 13:10 Vancomycin 1.5 Gram/300 Ml Premix IV 02/17/24 14:29 200 mls/hr ONCE ONE Administration Sodium Chloride 1,000 mls @ 1,000 mls/hr 02/17/24 13:48 02/17/24 15:36 Sodium Chloride IV 02/17/24 14:47 Infused BOLUS ONE Infusion Piperacillin Sod/Tazobactam 100 mls @ 200 mls/hr 02/18/24 07:45 02/18/24 07:58 Sod 3.375 gm/ Sodium Chloride IV 02/18/24 08:14 200 mls/hr ONCE ONE Administration Labetalol HCl 20 mg 02/17/24 16:34 02/17/24 16:41 Labetalol Hcl 20 Mg/4 Ml Disp.Syrin IVP 02/17/24 16:35 20 mg ONCE ONE Administration Labetalol HCl 20 mg 02/18/24 09:19 Labetalol Hcl 20 Mg/4 Ml Disp.Syrin IVP 02/18/24 09:20 ONCE ONE Lidocaine/Epinephrine 10 ml 02/17/24 13:39 02/17/24 14:44 Lidocaine 1%/Epinephrine 20 Ml Mdv INJ 02/17/24 13:40 10 ml ONCE STA Administration Lorazepam 2 mg 02/17/24 20:05 02/17/24 20:10 Lorazepam Inj 2 Mg/Ml Vial IVP 02/17/24 20:06 2 mg ONCE ONE Administration Metoprolol Tartrate 10 mg 02/17/24 20:54 02/17/24 21:01 Metoprolol Tartrate 5 Mg/5 Ml Vial IVP 02/17/24 20:55 10 mg ONCE STA Administration Midazolam HCl 2.5 mg 02/17/24 13:26 02/17/24 14:43 Midazolam Hcl Inj 5 Mg/Ml Vial IVP 02/17/24 13:27 2.5 mg ONCE STA Administration Non-Formulary Medication 1 each 02/17/24 11:38 02/17/24 15:40 Pharm Consult:Vancomycin Iv X1 Loading Dose IV 02/17/24 11:39 Not Given ONCE ONE Non-Formulary Medication 1 each 02/18/24 07:45 Pharm Consult: Vancomycin Iv One Time Order IV 02/18/24 07:46 ONCE ONE Vital Signs: Temp Pulse Resp BP Pulse Ox O2 Flow Rate 02/17/24 23:49 115 H 133/84 96 02/17/24 22:30 111 H 143/86 H 96 2 02/17/24 21:05 151/86 H 02/17/24 20:59 114 H 181/90 H 96 02/17/24 10:05 4 02/17/24 10:05 97.3 F L 130 H 32 H 106/84 92 L Discharge Plan Discharge Patient Disposition: PLACED OBSERVATION Discharge Problem: Mass of left lung, Twitching, Somnolence, Hypertension, uncontrolled Acute and chronic respiratory failure Qualifiers: Respiratory failure complication: hypoxia Qualified Code(s): J96.21 - Acute and chronic respiratory failure with hypoxia Sepsis Qualifiers: Sepsis type: sepsis due to unspecified organism Sepsis acute organ dysfunction status: with acute organ dysfunction Severe sepsis acute organ dysfunction type: acute respiratory failure Acute respiratory failure type: with hypoxia Severe sepsis shock status: without septic shock Qualified Code(s): A41.9 - Sepsis, unspecified organism Diabetes Qualifiers: Diabetes mellitus type: type 2 Diabetes mellitus alf insulin use: 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 The patient has been here since yesterday. Per the previous ER physician the patient had been treated for pneumonia with vancomycin and Zosyn. He was also seen and hospitalized here recently and discharged a couple days ago with Augmentin. Per the patient and his he has been compliant with his Augmentin treatment however continued to have worsening of shortness of breath at home. Patient is known to have a large lung mass in the left lung. The off going ER physician stated that yesterday the patient was found to have a pleural effusion which he did a thoracentesis and sent off for cultures. He stated that the patient was also treated for A-fib with RVR. He stated that he contacted the hospitalist here who has denied admission for treatment as Dr. Melendez the hospitalist feels that the patient needs specialist such as pulmonology and oncology for any further treatment he may have. The patient's stated that she wanted the patient to either stay here at [place] or go to [place] for treatment. Dr. Mcdnoough, the previous ER physician stated that he contacted both facilities in [facility] which were at [place] capacity and had a long waiting list and could not accept this transfer. At the time of handoff this morning the patient had a heart rate of 130 bpm which the previous ER physician stated was chronic in nature for this patient. Patient's respiratory rate was 30 respirations per minute. The patient had an O2 sat of 88% on 2 L nasal cannula. I increased the patient's nasal cannula to 4 L which is above his home O2 and the patient's O2 sat came up to 91%. Patient's blood pressure was 165/112. (0800)I have spoke with the hospitalist again this morning here at [facility]. She spoke with her attending physician which is Dr. Melendez about this patient. Dr. Melendez again states that if they want continued care for the lung mass that the patient would have to be transferred out and would not be excepted here. They did state however if the patient wanted hospice and palliative care that they would gladly accept the patient here. I spoke to the patient's at bedside and she stated that she understood that the patient could not stay here and that there were no beds currently in [facility] at the 2 hospitals. She stated that she was going to talk to the patient's daughter to see whether they wanted hospice with admission to the hospital here or if they wanted him to be sent off to another facility such as [place] or any other tertiary center with higher acuity of care. -Will repeat an EKG this morning. -EKG showed sinus tachycardia with a short MA interval of 100 ms. Ventricular rate of 133 bpm. Right bundle branch block noted. Left posterior fascicular block noted. Bifascicular block. No acute ST elevations noted. This was interpreted by the ER physician. -([id number]) spoke with Dr. Cochran, hospitalist at [facility] and [facility]. I discussed the patient's case and current treatment. I discussed the patient's radiology and lab results. I discussed the patient's current diagnoses. He has agreed to set the patient for left lung mass, sepsis, and acute on chronic hypoxemia. He stated that they would except the patient to stepdown unit once a bed became available. Patient has been placed on the waiting list at [facility] [place] for transfer. -Will give patient medication for his blood pressure 179/90 and heart rate 130 bpm. Will give IV labetalol 20 mg. -([id number]) spoke to the family at bedside and they have agreed that they want comfort care and hospice for the patient and to have him placed in the hospital here until hospice can be arranged. They do not want any extraordinary measures. Both myself and the ER nurse commercial sales manager were at bedside when the family made this decision. ([id number]) spoke to the hospitalist, Mckinley Garrison NP and discussed the patient's case with her. I discussed with her that the patient and family have agreed to only have comfort measures and hospice care at this point. I discussed the patient's current vital signs and workup up until the current time. The hospitalist has agreed to accept the patient for observation here at [facility] and set up hospice for this patient.
[2024-02-18] MEDS: ZOSYN 3.375 GM 3.375 GM in SODIUM CHLORIDE 100ML 100 ML IV ONE (07:58)
[2024-02-18] MEDS: TRANDATE IVP ONE (10:08)
[2024-02-18] MEDS: VANCOMYCIN 1.5 GRAM/300 ML PREMIX 1.5 GM/300 ML BAG IV SCH (10:23)
[2024-02-18 11:32] VITALS: BMI 42.5
[2024-02-18] MEDS ORDERED: ATIVAN IVP PRN (11:37)
--- NOTE | 2024-02-18 11:43 | PCM ---
Date of Service Date Seen by Provider: 02/18/24 Time Seen by Provider: 11:30 Admit Day/Time Admission Date: 02/18/24 Reason for Admission Chief Complaint: SEPSIS PNEUMONIA,ACUTE ON CHRONIC RESPIRATORY [facility] Hospital Provider [place] [facility] Provider: CARLA FERRER, [facility] [place] Primary Care Physician Primary Care Physician: DUKE STROUD History of Present Illness History of Present Illness: 78 yo male presented to the ER from home with complaints of shortness of breath. Patient received ativan and is unable to provide HPI at this time. at bedside. Patient was admitted to this facility 02/13/24 for L sided chest pain. Labs were unremarkable other than his baseline CKD. CXR showed significant abnormality of the left lung. CT chest showed 21 cm lung mass on the L side and 16x9 cm cross section. Limited by no contrast. CTA was done 02/13 and showed the same findings and post-obstructive pneumonia. He was given zosyn. Findings were discussed extensively at that time with patient and . Dr. Bland from [facility] was consulted via phone and recommended CT abdomen pelvis and will follow patient outpatient and recommended pulmonology referral as well. At that time, patient reported feeling at baseline, no chest pain, and requesting to go home. D/c with augmentin to cover the post obstructive pneumonia. Patient and family were thoroughly educated on importance of follow-up with specialists. Upon this visit, patient HR was in 130s, O2 sat was 92% on baseline 2L. Eventually was requiring 4L while in ER. He was given cardizem and labetolol with minimal response to lower HR. Chest xray showed L pleural effusion and stable lung mass. ER provider performed a thoracentesis with drainage of red fluid of approx. 2L with no change in condition. Chest x-ray this am showed consolidation to the entire left lung following the thoracentesis. Patient continued to be intermittently confused which has been his baseline previously at previous admissions at this facility. ER provider this am discussed options with family and prognosis of condition. and daughter determined hospice would be the best route at this time. Admitted to med/surg observation to help with facilitation of hospice care. Case Discussed With Case Discussed With: Patient's case was discussed with the ER Physicians, Dr. Rodríguez. [facility] Medical History Right knee pain M25.561 - Pain in right knee (ICD-10) History of smoking quit 05/2021 Z87.891 - Personal history of nicotine dependence (ICD-10) Hypertension I10 - Essential (primary) hypertension (ICD-10) Hyperlipidemia for years E78.5 - Hyperlipidemia, unspecified (ICD-10) Atherosclerosis of coronary artery for a few years I25.10 - Atherosclerotic heart disease of [place] coronary artery without angina pectoris (ICD-10) Diabetes mellitus for years E11.9 - Type 2 diabetes mellitus without complications (ICD-10) Surgical History H/O shoulder surgery left Z98.89 - Other specified postprocedural states (ICD-10) H/O kidney removal Z90.5 - Acquired absence of kidney (ICD-10) History of musculoskeletal system surgery Rotator cuff repair left shoulder Z98.890 - Other specified postprocedural states (ICD-10) Kidney excision left kidney removed 1 years ago Family History Mother No problems noted. FATHER Cerebrovascular accident BROTHER Diabetes Social History Smoking and tobacco status: Former smoker Alcohol intake: former Substance use type: does not use Water heater temperature set < 120 degrees: Yes Working smoke detector in home: Yes Fire extinguisher in home: Yes Carbon monoxide detector in home: Yes Allergies Allergies Allergy/AdvReac Type Severity Reaction Status Date / Time No Known Allergies Allergy Verified 02/17/24 10:14 Current Medications Home Medications albuterol sulfate 90 mcg/actuation aerosol inhaler 2 puff inhalation Q4-6H PRN shortness of breath or wheezing 12/29/23 [History Confirmed 02/17/24 Last Taken Unknown] amlodipine 10 mg tablet 10 mg PO QDAY 12/29/23 [History Confirmed 02/17/24 Last Taken Unknown] atropine 1 % eye drops 1 drp BOTHEYES BID 12/29/23 [History Confirmed 02/17/24 Last Taken Unknown] brimonidine 0.2 % eye drops 1 drp BOTHEYES TID 12/29/23 [History Confirmed 02/17/24 Last Taken Unknown] bumetanide 0.5 mg tablet 0.5 mg PO BID 12/29/23 [History Confirmed 02/17/24 Last Taken Unknown] carvedilol 3.125 mg tablet 3.125 mg PO BID 12/29/23 [History Confirmed 02/17/24 Last Taken Unknown] cholecalciferol (vitamin D3) 1,250 mcg (50,000 unit) capsule 1,250 mcg PO QWEEK 12/29/23 [History Confirmed 02/17/24 Last Taken Unknown] dapagliflozin propanediol 10 mg tablet (Farxiga) 10 mg PO QDAY 12/29/23 [History Confirmed 02/17/24 Last Taken Unknown] fluticasone furoate 100 mcg-vilanterol 25 mcg/dose inhalation powder (Breo Ellipta) 1 inh inhalation Q24H 12/29/23 [History Confirmed 02/17/24 Last Taken Unknown] insulin glargine 100 unit/mL subcutaneous solution (Lantus U-100 Insulin) 60 unit subcut BID 12/29/23 [History Confirmed 02/17/24 Last Taken Unknown] pantoprazole 40 mg tablet,delayed release 40 mg PO QDAY 12/29/23 [History Confirmed 02/17/24 Last Taken Unknown] semaglutide 1 mg/dose (4 mg/3 mL) subcutaneous pen injector (Ozempic) 1 mg subcut QWEEK 12/29/23 [History Confirmed 02/17/24 Last Taken Unknown] tamsulosin 0.4 mg capsule 0.4 mg PO QDAY 12/29/23 [History Confirmed 02/17/24 Last Taken Unknown] timolol 0.5 % eye drops 1 drp BOTHEYES BID 12/29/23 [History Confirmed 02/17/24 Last Taken Unknown] amoxicillin 875 mg-potassium clavulanate 125 mg tablet 1 tab PO BID 7 days #14 tabs 02/14/24 [Rx Confirmed 02/17/24 Last Taken Unknown] atorvastatin 40 mg tablet 40 mg PO .HS 02/17/24 [History Confirmed 02/18/24 Last Taken 02/16/24] calcitriol 0.25 mcg capsule 0.25 mcg PO MOWEFR 02/17/24 [History Confirmed 02/17/24 Last Taken Unknown] Home Lorazepam (Lorazepam Inj 2 Mg/Ml Vial) 1 mg IVP Q4H PRN PRN Reason: Agitation Morphine Sulfate (Morphine Sulfate 2 Mg/Ml Syringe) 2 mg IVP Q4H PRN PRN Reason: Pain Sodium Chloride (0.9% Sodium Chloride 10 Ml Disp.Syrin) 1 syr IVF PRN PRN PRN Reason: To flush IV Last Admin: 02/17/24 20:10 Dose: 1 syr Discontinued Medications Dextrose (Dextrose 50 % In Water 50 Ml Disp.Syrin) 50 ml IVP ONCE STA Stop: 02/17/24 16:13 Last Admin: 02/17/24 16:15 Dose: 50 ml Diltiazem HCl (Diltiazem Hcl Inj 25 Mg/5 Ml Vial) 20 mg IVP ONCE STA Stop: 02/17/24 13:49 Last Admin: 02/17/24 13:55 Dose: 20 mg Sodium Chloride (Sodium Chloride) 1,000 mls @ 1,000 mls/hr IV BOLUS ONE Stop: 02/17/24 11:41 Last Infusion: 02/17/24 12:40 Dose: Infused Piperacillin Sod/Tazobactam (Sod 3.375 gm/ Sodium Chloride) 100 mls @ 200 mls/hr IV ONCE ONE Stop: 02/17/24 12:07 Last Admin: 02/17/24 11:56 Dose: 200 mls/hr VANCOMYCIN/WATER FOR INJ (PEG) (Vancomycin 1.5 Gram/300 Ml Premix) 1.5 gm in 300 mls @ 200 mls/hr IV ONCE ONE Stop: 02/17/24 14:29 Last Admin: 02/17/24 13:10 Dose: 200 mls/hr Sodium Chloride (Sodium Chloride) 1,000 mls @ 1,000 mls/hr IV BOLUS ONE Stop: 02/17/24 14:47 Last Infusion: 02/17/24 15:36 Dose: Infused Sodium Chloride (Sodium Chloride) 500 mls @ 75 mls/hr IV .Q6H40M ESTEBAN Last Admin: 02/17/24 22:08 Dose: 75 mls/hr Piperacillin Sod/Tazobactam (Sod 3.375 gm/ Sodium Chloride) 100 mls @ 200 mls/hr IV ONCE ONE Stop: 02/18/24 08:14 Last Admin: 02/18/24 07:58 Dose: 200 mls/hr VANCOMYCIN/WATER FOR INJ (PEG) (Vancomycin 1.5 Gram/300 Ml Premix) 1.5 gm in 300 mls @ 200 mls/hr IV DAILY ESTEBAN Stop: 02/21/24 10:29 Last Admin: 02/18/24 10:23 Dose: 200 mls/hr Labetalol HCl (Labetalol Hcl 20 Mg/4 Ml Disp.Syrin) 20 mg IVP ONCE ONE Stop: 02/17/24 16:35 Last Admin: 02/17/24 16:41 Dose: 20 mg Labetalol HCl (Labetalol Hcl 20 Mg/4 Ml Disp.Syrin) 20 mg IVP ONCE ONE Stop: 02/18/24 09:20 Last Admin: 02/18/24 10:08 Dose: 20 mg Lidocaine/Epinephrine (Lidocaine 1%/Epinephrine 20 Ml Mdv) 10 ml INJ ONCE STA Stop: 02/17/24 13:40 Last Admin: 02/17/24 14:44 Dose: 10 ml Lorazepam (Lorazepam Inj 2 Mg/Ml Vial) 2 mg IVP ONCE ONE Stop: 02/17/24 20:06 Last Admin: 02/17/24 20:10 Dose: 2 mg Metoprolol Tartrate (Metoprolol Tartrate 5 Mg/5 Ml Vial) 10 mg IVP ONCE STA Stop: 02/17/24 20:55 Last Admin: 02/17/24 21:01 Dose: 10 mg Midazolam HCl (Midazolam Hcl Inj 5 Mg/Ml Vial) 2.5 mg IVP ONCE STA Stop: 02/17/24 13:27 Last Admin: 02/17/24 14:43 Dose: 2.5 mg Non-Formulary Medication (Pharm Consult:Vancomycin Iv X1 Loading Dose) 1 each IV ONCE ONE Stop: 02/17/24 11:39 Last Admin: 02/17/24 15:40 Dose: Not Given Non-Formulary Medication (Pharm Consult: Vancomycin Iv One Time Order) 1 each IV ONCE ONE Stop: 02/18/24 07:46 Opioid Naive vs. Tolerant Does Patient Take Opioids?: No Is Patient Opioid Naive?: Yes What is Opioid Naive?: *Opioid Naive implies the patient is not already taking opioids or not chronically receiving opioids on a daily basis. *PRN dosing is not "usually" associated with tolerance. *Patients are at higher risk of over-sedation and aspiration. Is Patient Opioid Tolerant?: No What is Opioid Tolerant?: *Opioid Tolerance implies less than the expected response to an opioid. *Acquired tolerance is defined by the patient taking 60mg of oral morphine daily (or equianalgesic dose of another opioid) for 1 week or more. *Often associated with chronic pain. *May take more than usual dose to achieve desired pain control. Physical examination Most Recent Vital Signs: Most Recent Vital Signs Temperature 97.6 F 02/18/24 10:58 Temperature Source Temporal Artery Scan 02/18/24 10:58 Temperature Source Temporal Artery Scan 02/17/24 10:05 Pulse Rate 115 H 02/18/24 10:58 Respiratory Rate 32 H 02/18/24 10:58 Blood Pressure 133/84 02/17/24 23:49 Blood Pressure Left Arm 127/80 02/18/24 10:58 Blood Pressure Position Supine 02/18/24 10:58 O2 Sat by Pulse Oximetry 91 L 02/18/24 10:58 Oxygen Delivery Method Nasal Cannula 02/18/24 11:00 Oxygen Flow Rate 4 02/18/24 10:58 Height 5 ft 8 in 02/18/24 10:58 Weight 126.7 kg 02/18/24 10:58 Telemetry Heart Rate 106 H 02/14/24 07:00 Telemetry SPO2 93 02/14/24 07:00 Appearance: Positive Ill-Appearing and Obese Skin: Positive Warm HEENT: Positive Normocephalic and Atraumatic Neck: Positive Supple and Midline Trachea Chest/Lungs: Positive Rhonci (L upper lobe) and Other (Clear breath sounds to R upper lobe, diminished breath sounds to RLL, minimal to no air movement to LLL) Heart: Positive Pulses Normal and Tachycardia GI/: Positive Soft, Nontender, Bowel Sounds Normal and No Distention Musculoskeletal: Positive Not Examined Extremities: Positive Edema (+2 nonpitting) and Intact Peripheral Pulses Neurological: Positive Sensation Intact, Motor intact, Disorinted and Other (lethargic, not responsive to verbal stimuli, minimally responsive to painful stimuli) Labs This Visit Labs This Visit: Labs This Visit 02/17/24 02/17/24 02/17/24 10:20 11:00 11:04 WBC 14.93 H RBC 5.20 Hgb 14.9 Hct 49.1 MCV 94.4 H MCH 28.7 MCHC 30.3 L RDW Coeff of Krissy 13.1 Plt Count 359 Immature Gran % (Auto) 0.5 Neut % (Auto) 77.1 H Lymph % (Auto) 10.1 Wallace % (Auto) 12.1 H Eos % (Auto) 0.1 Baso % (Auto) 0.1 Neut # (Auto) 11.5 H Lymph # (Auto) 1.5 Wallace # (Auto) 1.8 Eos # (Auto) 0.0 Baso # (Auto) 0.0 Immature Gran # (Auto) 0.1 PT 12.4 H INR 1.20 Puncture Site Lt rad Base Excess 7.8 H O2 Saturation 95.2 ABG pH 7.48 H ABG pCO2 42.0 ABG pO2 71.0 L ABG HCO3 31.3 H ABG Total CO2 32.6 H Julian Test Pos Hemoglobin 1.4 Oxyhemoglobin 91.6 L Carboxyhemoglobin 2.2 H Total Hemoglobin 15.6 O2 Delivery Device Cannula Oxygen Liter Flow 4.00 FiO2 % 36.0 Sodium 140.7 Potassium 4.36 Chloride 102.3 Carbon Dioxide 29.8 Anion Gap 12.96 BUN 21.6 H Creatinine 1.39 H Estimated GFR (MDRD) 50.00 BUN/Creatinine Ratio 15.53 Glucose 60.8 L Lactic Acid 1.92 Calcium 9.19 Total Bilirubin 0.85 AST 34.6 ALT 27.9 Alkaline Phosphatase 84.7 Ammonia C-Reactive Prot, Quant 215 H NT-Pro-B Natriuret Pep 545 H Total Protein 7.86 Albumin 3.78 Globulin 4.08 Albumin/Globulin Ratio 0.92 Procalcitonin 0.51 H Fluid WBC Fld Total RBCs Counted Fluid Comment Influ A Molecular Assay Negative by naat Influ B Molecular Assay Negative by naat RSV Antigen Negative by naat SARS CoV-2 RNA Rapid SALTY Negative 02/17/24 02/17/24 02/17/24 15:10 15:36 20:51 WBC RBC Hgb Hct MCV MCH MCHC RDW Coeff of Krissy Plt Count Immature Gran % (Auto) Neut % (Auto) Lymph % (Auto) Wallace % (Auto) Eos % (Auto) Baso % (Auto) Neut # (Auto) Lymph # (Auto) Wallace # (Auto) Eos # (Auto) Baso # (Auto) Immature Gran # (Auto) PT INR Puncture Site [place] Base Excess 5.1 H O2 Saturation 91.2 L ABG pH 7.36 ABG pCO2 54.0 H ABG pO2 64.0 L ABG HCO3 30.5 H ABG Total CO2 32.2 H Julian Test Pos Hemoglobin 0.9 Oxyhemoglobin 89.2 L Carboxyhemoglobin 2.5 H Total Hemoglobin 14.4 O2 Delivery Device Cannula Oxygen Liter Flow 2.00 FiO2 % Sodium Potassium Chloride Carbon Dioxide Anion Gap BUN Creatinine Estimated GFR (MDRD) BUN/Creatinine Ratio Glucose Lactic Acid Calcium Total Bilirubin AST ALT Alkaline Phosphatase Ammonia 20.5 C-Reactive Prot, Quant NT-Pro-B Natriuret Pep Total Protein Albumin Globulin Albumin/Globulin Ratio Procalcitonin Fluid WBC 211 H Fld Total RBCs Counted 3615 H Fluid Comment Influ A Molecular Assay Influ B Molecular Assay RSV Antigen SARS CoV-2 RNA Rapid SALTY 02/17/24 02/18/24 02/18/24 22:05 05:14 05:33 WBC 16.42 H 17.54 H RBC 4.72 4.69 L Hgb 13.7 L 13.6 L Hct 45.7 45.0 MCV 96.8 H 95.9 H MCH 29.0 29.0 MCHC 30.0 L 30.2 L RDW Coeff of Krissy 13.2 13.3 Plt Count 312 297 Immature Gran % (Auto) 0.7 0.6 Neut % (Auto) 77.0 H 79.4 H Lymph % (Auto) 9.0 L 6.7 L Wallace % (Auto) 13.1 H 12.9 H Eos % (Auto) 0.1 0.3 Baso % (Auto) 0.1 0.1 Neut # (Auto) 12.6 H 13.9 H Lymph # (Auto) 1.5 1.2 Wallace # (Auto) 2.2 H 2.3 H Eos # (Auto) 0.0 0.1 Baso # (Auto) 0.0 0.0 Immature Gran # (Auto) 0.1 0.1 PT INR Puncture Site [place] Base Excess 3.0 O2 Saturation 91.7 L ABG pH 7.37 ABG pCO2 49.0 H ABG pO2 65.0 L ABG HCO3 28.3 H ABG Total CO2 29.8 H Julian Test Pos Hemoglobin 1.3 Oxyhemoglobin 89.4 L Carboxyhemoglobin 2.3 H Total Hemoglobin 14.7 O2 Delivery Device Cannula Oxygen Liter Flow 2.00 FiO2 % Sodium 139.3 141.3 Potassium 4.42 4.37 Chloride 106.4 107.4 H Carbon Dioxide 26.9 28.9 Anion Gap 10.42 9.37 BUN 24.1 H 24.6 H Creatinine 1.39 H 1.41 H Estimated GFR (MDRD) 50.00 49.00 BUN/Creatinine Ratio 17.33 17.44 Glucose 86.0 87.5 Lactic Acid Calcium 8.36 L 8.41 Total Bilirubin 0.73 0.75 AST 38.9 49.0 ALT 25.5 26.3 Alkaline Phosphatase 71.2 74.2 Ammonia C-Reactive Prot, Quant NT-Pro-B Natriuret Pep Total Protein 7.15 7.04 Albumin 3.45 L 3.31 L Globulin 3.70 3.73 Albumin/Globulin Ratio 0.93 0.88 Procalcitonin Fluid WBC Fld Total RBCs Counted Fluid Comment Influ A Molecular Assay Influ B Molecular Assay RSV Antigen SARS CoV-2 RNA Rapid SALTY Microbiology This Visit 02/17/24 11:27 Blood Blood Culture - Preliminary NEGATIVE AFTER 1 DAY. 02/17/24 11:00 Blood Blood Culture - Preliminary NEGATIVE AFTER 1 DAY. 02/17/24 15:13 Pleural Fluid Body Fluid Culture - Preliminary Imaging Imaging: EXAM: CHEST ONE VIEW, FRONTAL VIEW ONLY. 02/17/24 HISTORY: Sepsis. COMPARISON: 02/14/2024. FINDINGS: Extensive mass-like consolidation of the left lung with underlying pleural effusion again noted. The band-like opacities at the right lung base. Right lung otherwise clear. Heart size is stable. No pneumothorax identified. No acute osseous abnormalities seen. IMPRESSION: 1. Stable large left lung mass and left pleural effusion. 2. Right basilar subsegmental atelectasis. EXAM: FRONTAL CHEST RADIOGRAPH(S). 1 VIEW. 02/17/24 History: Post thoracentesis Comparison: 02/17/2024 Findings: Left heart border is obscured. The left hemithorax is completely opacified due to pleural fluid with superimposed pulmonary consolidation. Right lung is well-aerated. No pneumothorax. Impression: Please see above. EXAM: PORTABLE CHEST 02/18/24 HISTORY: Shortness of breath chest mass COMPARISON: Single-view chest 02/17/2024 FINDINGS / impression:: The left hemithorax remains opacified. Prominent interstitial markings are noted at the right lung base. Cardiac size is not evaluated. EXAM: CHEST CT WITHOUT CONTRAST 02/13/24 HISTORY: Abnormal chest x-ray. TECHNIQUE: CT acquisition of the chest from the thoracic inlet to the upper abdomen without IV contrast administration. 2-D coronal and sagittal reformatted images were obtained from the axial source images. CT Dose Reduction Techniques Performed: Yes. IV Contrast: None. COMPARISON: Chest x-ray 02/13/[address] of the chest 03/07/2021. FINDINGS: Lines, Tubes, Devices: None. Lung Parenchyma and Airways: Narrowing of the left mainstem bronchus and branches. Large soft tissue density in the left lung extending from the hilum to the chest wall and in the lung apex to the diaphragm measuring 21 cm in length and 16 x 9 cm in cross section. Subsegmental atelectasis of the bilateral lung bases. Pleural Space: Moderate left effusion. Mediastinum and Dena: Lobulated mass-like density in the left hilum. Numerous pathologically enlarged mediastinal and left hilar nodes. Heart and Pericardium: Heart is not enlarged. No significant valvular calcifications. Mild coronary artery calcifications, however exam is not optimized for evaluation. No pericardial effusion or thickening. Vessels: Aorta is normal in caliber with mild atherosclerotic calcifications. Main pulmonary artery is normal in caliber. Bones: No fracture, lytic lesion, or blastic lesion. Moderate spondylosis and degenerative disc disease. There is flowing ossification along the anterolateral aspect of contiguous lower thoracic vertebral bodies, with preservation of disk height consistent with diffuse idiopathic skeletal hyperostosis (DISH) Soft Tissues: Mild bilateral gynecomastia. Upper Abdomen: The left kidney is surgically absent. IMPRESSION: 1. Large soft tissue mass-like density in the left lung as described above, some of which may represent atelectasis. Evaluation is limited without intravenous contrast. There is significant pathologic mediastinal and left hilar adenopathy. Findings are concerning for malignancy. Moderate left effusion. Review Statement Review Statement: I have independently reviewed and interpreted the labs/EKGs/imaging that were ordered by the ER provider. I have reviewed all outside records that are available currently in our EMR including imaging/notes/labs from previous visits. Plan Plan: 1. Acute on Chronic Respiratory Failure 2. 21 cm Lung Mass likely malignant 3. Leukocytosis 4. CKD 5. Hypertension ER provider, Dr. Rodríguez spoke with about prognosis and plan for patient due to extensive lung mass. agreeable to hospice care. This provider also discussed hospice care as well. agreeable that she wishes for patient to be comfortable and does not wish to undergo further life-prolonging measures. Chest x-ray showing continued opacification of L lung this am after undergoing thoracentesis and drainage of 2L. precast worker, Yolanda, sending referrals to hospice to determine if patient meets for IP hospice vs discharge home on hospice care. Scopolamine Q72H, Ativan 1 mg IVP Q4H PRN, morphine 2 mg IVP Q4H prn DVT Prophylaxis: None Time Spent: Greater than 80 minutes spent with patient, 50% of the time spent with this patient was devoted to counseling and coordination of care. [facility] minutes spent discussing advance care planning. Disposition: Admit to: Med/Surg Observation DNR Discussed Plan of Care with Dr. Fly Melendez. Medications Medication Orders: Medications Ordered Category Date Time Status 0.9 % Sodium Chloride [Saline Flush] Meds 02/17/24 10:42 Active 1 syr IVF PRN PRN Lorazepam [Ativan] Meds 02/18/24 11:37 Active 1 mg IVP Q4H PRN Morphine Sulfate [Morphine 2 mg/ml Syringe] Meds 02/18/24 11:37 Active 2 mg IVP Q4H PRN
[2024-02-18] MEDS ORDERED: DEXTROSE 50%-WATER ABBOJECT IVP PRN (16:08)
--- NOTE | 2024-02-19 09:25 | DCSUM ---
Admission Date Admission Date: 02/18/24 Discharge Date Discharge Date: 02/19/24 Admission Diagnosis Admission Diagnosis: 1. Acute on Chronic Respiratory Failure 2. 21 cm Lung Mass likely malignant 3. Leukocytosis 4. CKD 5. Hypertension Discharge Diagnosis Discharge Diagnosis: 1. Acute on Chronic Respiratory Failure 2. 21 cm Lung Mass likely malignant 3. Leukocytosis 4. CKD 5. Hypertension Hospital Provider Hospital Provider: CARLA FERRER, [facility] Primary Care Physician Primary Care Physician: DUKE STROUD Summary of History and Physical Summary of History and Physical: 78 yo male presented to the ER from home with complaints of shortness of breath. Patient received ativan and is unable to provide HPI at this time. at bedside. Patient was admitted to this facility 02/13/24 for L sided chest pain. Labs were unremarkable other than his baseline CKD. CXR showed significant abnormality of the left lung. CT chest showed 21 cm lung mass on the L side and 16x9 cm cross section. Limited by no contrast. CTA was done 02/13 and showed the same findings and post-obstructive pneumonia. He was given zosyn. Findings were discussed extensively at that time with patient and . Dr. Bland from [facility] was consulted via phone and recommended CT abdomen pelvis and will follow patient outpatient and recommended pulmonology referral as well. At that time, patient reported feeling at baseline, no chest pain, and requesting to go home. D/c with augmentin to cover the post obstructive pneumonia. Patient and family were thoroughly educated on importance of follow-up with specialists. Upon this visit, patient HR was in 130s, O2 sat was 92% on baseline 2L. Eventually was requiring 4L while in ER. He was given cardizem and labetolol with minimal response to lower HR. Chest xray showed L pleural effusion and stable lung mass. ER provider performed a thoracentesis with drainage of red fluid of approx. 2L with no change in condition. Chest x-ray this am showed consolidation to the entire left lung following the thoracentesis. Patient continued to be intermittently confused which has been his baseline previously at previous admissions at this facility. ER provider this am discussed options with family and prognosis of condition. and daughter determined hospice would be the best route at this time. Admitted to med/surg observation to help with facilitation of hospice care. Hospital Course Subjective: During stay, patient was admitted for the facilitation of hospice care. Patient has been lethargic/obtunded majority of stay. Morphine and ativan ordered Q4H prn. Has not required further dosing. Hospice [facility] [place] consulted yesterday. Re-eval today and patient is not candidate for inpatient hospice. Recommends transfer to [facility] on hospice care. D/c [facility] under hospice care with medications. Appearance: No Apparent Distress and Ill-appearing HEENT: MMM, Supple and No JVD CVS: No Murmur and No Rubs Abdomen: Soft, Non-Tender and No Distention Respiratory: No Accessory Muscle Use Extremities: No Edema Vital Signs: Most Recent Vital Signs Temperature 99.2 F 02/19/24 05:16 Temperature Source Axillary 02/19/24 05:16 Temperature Source Temporal Artery Scan 02/17/24 10:05 Pulse Rate 120 H 02/19/24 05:16 Respiratory Rate 24 H 02/19/24 05:16 Blood Pressure 152/85 H 02/19/24 05:16 Blood Pressure Mean 107 02/19/24 05:16 Blood Pressure Left Arm 127/80 02/18/24 10:58 Blood Pressure Location Right Arm 02/19/24 05:16 Blood Pressure Position Supine 02/19/24 05:16 O2 Sat by Pulse Oximetry 91 L 02/19/24 06:00 Oxygen Delivery Method Nasal Cannula 02/19/24 07:23 Oxygen Flow Rate 4 02/19/24 07:23 Height 5 ft 8 in 02/18/24 10:58 Weight 126.7 kg 02/18/24 10:58 Telemetry Heart Rate 106 H 02/14/24 07:00 Telemetry SPO2 93 02/14/24 07:00 Imaging: EXAM: CHEST ONE VIEW, FRONTAL VIEW ONLY. 02/17/24 HISTORY: Sepsis. COMPARISON: 02/14/2024. FINDINGS: Extensive mass-like consolidation of the left lung with underlying pleural effusion again noted. The band-like opacities at the right lung base. Right lung otherwise clear. Heart size is stable. No pneumothorax identified. No acute osseous abnormalities seen. IMPRESSION: 1. Stable large left lung mass and left pleural effusion. 2. Right basilar subsegmental atelectasis. EXAM: FRONTAL CHEST RADIOGRAPH(S). 1 VIEW. 02/17/24 History: Post thoracentesis Comparison: 02/17/2024 Findings: Left heart border is obscured. The left hemithorax is completely opacified due to pleural fluid with superimposed pulmonary consolidation. Right lung is well-aerated. No pneumothorax. Impression: Please see above. EXAM: PORTABLE CHEST 02/18/24 HISTORY: Shortness of breath chest mass COMPARISON: Single-view chest 02/17/2024 FINDINGS / impression:: The left hemithorax remains opacified. Prominent interstitial markings are noted at the right lung base. Cardiac size is not evaluated. EXAM: CHEST CT WITHOUT CONTRAST 02/13/24 HISTORY: Abnormal chest x-ray. TECHNIQUE: CT acquisition of the chest from the thoracic inlet to the upper abdomen without IV contrast administration. 2-D coronal and sagittal reformatted images were obtained from the axial source images. CT Dose Reduction Techniques Performed: Yes. IV Contrast: None. COMPARISON: Chest x-ray 02/13/[address] of the chest 03/07/2021. FINDINGS: Lines, Tubes, Devices: None. Lung Parenchyma and Airways: Narrowing of the left mainstem bronchus and branches. Large soft tissue density in the left lung extending from the hilum to the chest wall and in the lung apex to the diaphragm measuring 21 cm in length and 16 x 9 cm in cross section. Subsegmental atelectasis of the bilateral lung bases. Pleural Space: Moderate left effusion. Mediastinum and Dena: Lobulated mass-like density in the left hilum. Numerous pathologically enlarged mediastinal and left hilar nodes. Heart and Pericardium: Heart is not enlarged. No significant valvular calcifications. Mild coronary artery calcifications, however exam is not optimized for evaluation. No pericardial effusion or thickening. Vessels: Aorta is normal in caliber with mild atherosclerotic calcifications. Main pulmonary artery is normal in caliber. Bones: No fracture, lytic lesion, or blastic lesion. Moderate spondylosis and degenerative disc disease. There is flowing ossification along the anterolateral aspect of contiguous lower thoracic vertebral bodies, with preservation of disk height consistent with diffuse idiopathic skeletal hyperostosis (DISH) Soft Tissues: Mild bilateral gynecomastia. Upper Abdomen: The left kidney is surgically absent. IMPRESSION: 1. Large soft tissue mass-like density in the left lung as described above, some of which may represent atelectasis. Evaluation is limited without intravenous contrast. There is significant pathologic mediastinal and left hilar adenopathy. Findings are concerning for malignancy. Moderate left effusion. Discharge Instructions Discharge Planning: Discharge Planning > 40 minutes If patient is discharged with left ventricular systolic dysfunction: NA Discharged with a beta jonathan? [] If no, why not? [] Discharged with an golden/arb? [] If no, why not? [] Diagnosis: Lung mass Diet: Pleasure feeds Activity: bedrest Medications: morphine, ativan, scopolamine Undercare of [facility] Discharge Medications: Medications at Discharge (Home Meds & RX) albuterol sulfate 90 mcg/actuation aerosol inhaler 2 puff inhalation Q4-6H PRN shortness of breath or wheezing 12/29/23 amlodipine 10 mg tablet 10 mg PO QDAY 12/29/23 atropine 1 % eye drops 1 drp BOTHEYES BID 12/29/23 brimonidine 0.2 % eye drops 1 drp BOTHEYES TID 12/29/23 bumetanide 0.5 mg tablet 0.5 mg PO BID 12/29/23 carvedilol 3.125 mg tablet 3.125 mg PO BID 12/29/23 cholecalciferol (vitamin D3) 1,250 mcg (50,000 unit) capsule 1,250 mcg PO QWEEK 12/29/23 dapagliflozin propanediol 10 mg tablet (Farxiga) 10 mg PO QDAY 12/29/23 fluticasone furoate 100 mcg-vilanterol 25 mcg/dose inhalation powder (Breo Ellipta) 1 inh inhalation Q24H 12/29/23 insulin glargine 100 unit/mL subcutaneous solution (Lantus U-100 Insulin) 60 unit subcut BID 12/29/23 pantoprazole 40 mg tablet,delayed release 40 mg PO QDAY 12/29/23 semaglutide 1 mg/dose (4 mg/3 mL) subcutaneous pen injector (Ozempic) 1 mg subcut QWEEK 12/29/23 tamsulosin 0.4 mg capsule 0.4 mg PO QDAY 12/29/23 timolol 0.5 % eye drops 1 drp BOTHEYES BID 12/29/23 amoxicillin 875 mg-potassium clavulanate 125 mg tablet 1 tab PO BID 7 days #14 tabs 02/14/24 atorvastatin 40 mg tablet 40 mg PO .HS 02/17/24 calcitriol 0.25 mcg capsule 0.25 mcg PO MOWEFR 02/17/24 Discharge Plan Discharge Discharge Orders: Discharge Patient (ONCE); Ordered 02/19/24 Ordered By: VINITA ORDOÑEZ Activity Restrictions/Additional Instructions: Discharge to [facility] via [facility] Diagnosis: Left Lung mass Diet: Pleasure feeds Activity: bedrest Medications: morphine, ativan, scopolamine 1. Morphine 2mg. oral solution Q4HR PRN for pain 2. Ativan 1mg. oral solution Q4HR PRN for agitation 3. Scopolamine patch Q3Days PRN for increased secretions Under care of [facility] and they will Order further meds PRN Instructions: Hospice Care (GEN) Patient Disposition: TRANSFER SNF Prescriptions: New morphine 10 mg/5 mL solution 2 mg PO Q4H PRN (Reason: pain) Qty: 100 0RF lorazepam 2 mg/mL concentrate 1 mg PO Q4HR PRN (Reason: agitation) Qty: 30 0RF scopolamine base 1 mg over 3 days patch 3 day 1 patch transdermal Q3D PRN (Reason: secretions) Qty: 10 0RF Continued albuterol sulfate 90 mcg/actuation HFA aerosol inhaler 2 puff inhalation Q4-6H PRN (Reason: shortness of breath or wheezing) Discontinued amlodipine 10 mg tablet 10 mg PO QDAY atropine 1 % drops 1 drp BOTHEYES BID fluticasone furoate-vilanterol [Breo Ellipta] 100-25 mcg/dose blister with device 1 inh inhalation Q24H brimonidine 0.2 % drops 1 drp BOTHEYES TID Rx Instructions: administer approximately 8 hours apart bumetanide 0.5 mg tablet 0.5 mg PO BID carvedilol 3.125 mg tablet 3.125 mg PO BID Rx Instructions: must administer with a meal/food dapagliflozin propanediol [Farxiga] 10 mg tablet 10 mg PO QDAY insulin glargine [Lantus U-100 Insulin] 100 unit/mL solution 60 unit subcut BID Ozempic 1 mg/dose (4 mg/3 mL) pen injector 1 mg subcut QWEEK pantoprazole 40 mg tablet,delayed release (DR/EC) 40 mg PO QDAY tamsulosin 0.4 mg capsule 0.4 mg PO QDAY timolol 0.5 % drops 1 drp BOTHEYES BID cholecalciferol (vitamin D3) 1,250 mcg (50,000 unit) capsule 1,250 mcg PO QWEEK amoxicillin-pot clavulanate 875-125 mg tablet 1 tab PO BID 7 Days Qty: 14 0RF atorvastatin 40 mg tablet 40 mg PO .HS calcitriol 0.25 mcg capsule 0.25 mcg PO MOWEFR Did you review [place] [employer] for ALL controlled substances?: No Discussed opioids are addictive and Narcan is available by prescription or from pharmacy.: No Condition: Stable
[2024-02-19] MEDS: MORPHINE 2 MG/ML SYRINGE IVP PRN (10:55)
[2024-02-19 14:20] VITALS: BP 150/86; PULSE 126; RESP 27; TEMP 98
== END 2024-02-19 18:00 ==
LOC: ED 10:02 → MEDSURG B 10:02
PROVIDERS: ADMIT Hospitalist; ATTEND Nurse Practitioner Family
DX: R41.82 Altered mental status, unspecified; R00.0 Tachycardia, unspecified; R25.3 Fasciculation; Z20.822 Contact with and (suspected) exposure to COVID-19; Z74.3 Need for continuous supervision; E11.9 Type 2 diabetes mellitus without complications; Z79.899 Other long term (current) drug therapy; I48.91 Unspecified atrial fibrillation; N18.9 Chronic kidney disease, unspecified; J18.9 Pneumonia, unspecified organism; D72.829 Elevated white blood cell count, unspecified; Z79.4 Long term (current) use of insulin; I45.10 Unspecified right bundle-branch block; J98.11 Atelectasis; I10 Essential (primary) hypertension; R91.8 Other nonspecific abnormal finding of lung field; J90 Pleural effusion, not elsewhere classified; J96.21 Acute and chronic respiratory failure with hypoxia; A41.9 Sepsis, unspecified organism; Z99.81 Dependence on supplemental oxygen; Z51.81 Encounter for therapeutic drug level monitoring